=== PATIENT | male | born 1980 | race Caucasian/White ===

== ENCOUNTER 2021-03-28 07:38 | Outpatient (CLI) | payer OTHER, SELFPAY ==
--- NOTE | 2021-04-03 10:52 | WPDHOMESLEEP ---
Sleep Study - Home Unattended Date of Study: 03/28/21 <Peggy Leiva DO - Last Filed: 04/03/21 11:15> Ordering Provider: Clark Thomas MD <Peggy Leiva DO - Last Filed: 04/03/21 11:15> Interpreting Provider: Peggy Leiva DO <Peggy Leiva DO - Last Filed: 04/03/21 11:15> Home Sleep Study Type: Apnea Link Air <Peggy Leiva DO - Last Filed: 04/03/21 11:15> Height: 1.85 m <Peggy Leiva DO - Last Filed: 04/03/21 11:15> Weight: 120.202 kg <Peggy Leiva DO - Last Filed: 04/03/21 11:15> Body Mass Index: 34.9 <Peggy Leiva DO - Last Filed: 04/03/21 11:15> Neck Circumference (inches): 18 <Peggy Leiva DO - Last Filed: 04/03/21 11:15> [place]: 6 <Peggy Leiva DO - Last Filed: 04/03/21 11:15> Reason for Sleep Study Unrefreshing sleep, morning headaches <Peggy Leiva DO - Last Filed: 04/03/21 11:15> Sleep History The patient is a 40-year-old male with migraines, anxiety, and protein losing nephropathy that had a home sleep test ordered by his primary care physician due to morning headaches and unrefreshing sleep. The patient denies awakening from sleep short of breath. He denies awakening at night with heartburn, belching or cough. He frequently snores but never loud enough that others complain. He constantly has trouble sleeping when he has a cold. He denies waking up gasping for air throughout the night. He denies having breathing problems at night observed by others. He rarely sweats excessively at night. He rarely notices heart palpitations or irregular heartbeats during the night. He occasionally falls asleep during the day but never while driving. He denies sleep paralysis, cataplexy and hypnagogic / hypnopompic hallucinations. He denies having trouble at work due to sleepiness. He denies having nightmares. He frequently has thoughts racing through his mind. He denies feeling sad or depressed but frequently has anxiety. He occasionally has muscular tension. He frequently notices parts of his body jerk. He occasionally kicks during the night. He occasionally has crawling and aching feelings in his legs as well as leg pain during the night. He denies grinding his teeth during sleep and awakening with morning jaw pain. He is occasionally bothered by pain during the day and awakened by pain during the night. He occasionally wakes up feeling stiff in the morning with sore and achy muscles. He currently goes to bed between 10 and 11:00 p.m. on weekdays and between 11:00 p.m. admin night on the weekends. It takes him between 10 and 15 minutes to fall asleep. He wakes up 2-3 times per night. When he awakens, he will drink water. He can fall back asleep within 15 to 20 minutes. He awakens at 6:00 a.m. on weekdays and 7:00 a.m. on weekends. He typically gets 5-6 hours of sleep per night. He will stay in bed for 5 minutes after awakening in the morning. He is currently living with his , 4 kids and [id number]. He does consume caffeinated beverages within 2 hours of bedtime. He does not engage in physical exercise before bedtime. He does not read or watch television before falling asleep. He does not take naps during the afternoon or the evening. He drinks 2 caffeinated beverages per day. He denies tobacco, alcohol and recreational drug use. <Peggy Leiva DO - Last Filed: 04/03/21 11:15> [facility] Past Medical History Medical History: Medical History Abnormal fasting glucose (10/13/20) glucose 135 and hemoglobin A1c 6.0 on 10/13/2020 Acute non-recurrent maxillary sinusitis BMI 35.0-35.9,adult Cellulitis Exposure to COVID-19 virus Hypersomnia (~01/02/21) Mixed hyperlipidemia (10/13/20) total cholesterol 211, HDL 49, triglycerides 159 and LDL 133 on 10/13/2020 Polyp of colon Protein-losing nephropathy Nahid
[2021-04-03 11:03] VITALS: BMI 34.9
== END 2021-03-29 13:31 | disposition home or self-care (01) ==
LOC: ANHCSM 07:39
PROVIDERS: PCP Family Medicine; Visit Provider Family Medicine
DX: G47.10 Hypersomnia, unspecified (principal); G47.8 Other sleep disorders; G47.9 Sleep disorder, unspecified
CPT/HCPCS: 95806

== ENCOUNTER 2024-01-07 07:36 | Emergency (ER) | payer BC, SELFPAY ==
[2024-01-07] VITALS (13 sets, daily range): BP systolic 136–158; BP diastolic 87–113; PULSE 64–84; RESP 16–20; TEMP 36.6–37.2; O2SAT 95–100
--- NOTE | 2024-01-07 07:43 | ECG_ITS ---
Test Date: 2024-01-07 07:46:17 Measurements Intervals [place] Rate: 75 P: 10 OK: 140 QRS: -20 QRSD: 84 T: 18 QT: 342 QTc: 384 Interpretive Statements SINUS RHYTHM DELAYED PRECORDIAL R/S TRANSITION BORDERLINE ECG No previous ECG available for comparison Electronically Signed On 01-07-2024 09:24:31 CDT by Jasen Jack D.O.
--- NOTE | 2024-01-07 09:51 | ED.ANXIETY ---
HPI - Anxiety General Chief Complaint: Anxiety Stated Complaint: chest tightness, anxiety Time Seen by Provider: 01/07/24 09:40 Source: patient Mode of arrival: ambulatory Limitations: no limitations History of Present Illness HPI narrative: This is a 43-year-old male who presents to the ED with chief complaint of chest tightness, tingling of the bilateral hands onset around 4:00 a.m. this morning. Reports he just feels very off. states that his hands and legs still feel off but the chest tightness has overall resolved. He does report history of anxiety and not any medications. 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 Reports that he is undergoing upset for chronic EBV and chronic Lyme do with his all natural doctor. denies fevers, chills, headache, neck pain, shortness of breath, N/V/D. Related Data Home Medications Medication Instructions Recorded Confirmed aspirin 81 mg tablet,delayed 81 mg PO DAILY 12/04/21 10/16/23 release (Adult Low Dose Aspirin) cholecalciferol (vitamin D3) PO 06/04/23 10/16/23 mecobalamin (vitamin B12) IM .[id number] 06/04/23 10/16/23 omega-3 fatty acids [Fish Oil] PO 06/04/23 10/16/23 Allergies Allergy/AdvReac Type Severity Reaction Status Date / Time No Known Allergies Allergy Mild Verified 01/07/24 09:41 Review of Systems Review of Systems: All systems as dictated in HPI [facility] Past Medical History Medical History (Reviewed 10/16/23 @ 13:01 by Colten Silva [facility]) Abnormal fasting glucose (10/13/20) glucose 135 and hemoglobin A1c 6.0 on 10/13/2020. Glucose 137 with hemoglobin A1c 6.8 on 12/01/2021. Acute bronchitis Acute non-recurrent maxillary sinusitis Binocular vision disorder with diplopia (~12/01/21) intermittent binocular diplopia starting 12/01/2021 Blurred vision (12/01/21) BMI 35.0-35.9,adult Body mass index [BMI] 33.0-33.9, adult Brain fog Brain stem stroke syndrome (~12/01/21) a possible MRI negative brainstem stroke evaluated at [facility] 12/01/2021 Cellulitis Chronic neck pain COVID-19 (~02/2023) Encounter for prostate cancer screening Exposure to COVID-19 virus Hemorrhoids Hypersomnia (~01/02/21) Home sleep study 03/28/2021 with AHI of 3.4 with evidence of restless leg syndrome. Consider in-lab sleep study Infected dental caries left upper jaw Influenza-like illness (~06/20/23) Migraine without aura and responsive to treatment CT of the brain on 12/01/2021 was normal. MRI of the brain was normal 12/03/2021. the patient is having brainstem aura symptoms without migraine. Migraine without aura and without status migrainosus, not intractable Neurologist believes that the intermittent diplopia represents a brainstem aura. Mixed hyperlipidemia (10/13/20) total cholesterol 211, HDL 49, triglycerides 159 and LDL 133 on 10/13/2020. Total cholesterol 188, triglycerides 138, HDL 42 and LDL 118 on 12/01/2021. Obesity (BMI 30.0-34.9) Paresthesias Polyp of colon Protein-losing nephropathy Renal stone (10/13/20) Seasonal allergic rhinitis Urinary tract infection Vitamin B12 deficiency anemia B12 slightly low at 341 on 10/13/2020 Vitamin D deficiency, unspecified (10/13/20) vitamin-D low at 16 on 10/13/2020 Wellness examination Family History Family History (Reviewed 10/16/23 @ 13:01 by Colten Silva [facility]) Father Diabetes mellitus Patient's father is in good health Mother Diabetes mellitus Patient's mother is in good health Grandparent Family history of cardiovascular disease Social History Social History (Reviewed 10/16/23 @ 13:01 by Colten Silva [facility]) Smoking status: Never smoker Alcohol intake: never Substance use: never Substance use type: does not use Lack of Transportation: No Lack of Food: Never True Current Housing: I Have Housing Concerned About Future Housing: No Difficulty Paying Gas/Electric Bills: No Difficulty Pa
[2024-01-07 10:18] LABS: Basophils Percent Auto 0.3 % (0.2-1.2); Eosinophils Percent Auto 0.4 % (0-4.4); Hematocrit 49.6 % (42.0-52.0); Hemoglobin 16.5 g/dL (14.0-18.0); Immature Granulocyte Absolute 0.04 K/mm3 (0.00-0.031); Immature Granulocyte Percent A 0.5 % (0-0.5); Lymphocytes Absolute Auto 1.01 K/mm3 (0.9-3.2); Lymphocytes Percent Auto 12.9 % (18.3-44.2); Mean Corpuscular HGB Conc 33.3 g/dl (32-36); Mean Corpuscular Hemoglobin 30.1 pg (26-34); Mean Corpuscular Volume 90.5 fl (80-100); Mean Platelet Volume 10.5 fl (7.4-10.4); Monocytes Absolute Auto 0.3 K/mm3 (0.1-0.6); Monocytes Percent Auto 3.9 % (2.6-8.5); Neutrophils Absolute Auto 6.4 K/mm3 (1.3-6.7); Platelet Count Result 180 k/mm3 (150-375); Red Blood Count 5.48 M/mm3 (4.6-6.20); Red Cell Distribution Width 13.2 % (11.5-14.5); White Blood Count 7.9 K/mm3 (4.5-10.0)
[2024-01-07 10:28] LABS: Anion Gap 11 mmol/L (4-12); Blood Urea Nitrogen 15 mg/dL (9-20); Calcium 8.8 mg/dL (8.4-10.2); Carbon Dioxide 24 mmol/L (22-30); Chloride 102 mmol/L (98-107); Estimated CRCL calculation 140 ml/min; Estimated Glomerular Filt Rate > 60; Glucose 159 mg/dL (65-110); Partial Thromboplastin Time 34.5 Seconds (22.3-36.8); Potassium 4.3 mmol/L (3.4-5.0); Prothrombin Time 13.7 Seconds (11.1-14.7); Sodium 137 mmol/L (137-145)
[2024-01-07 10:40] LABS: Troponin I < 0.012 ng/mL (0.000-0.034)
[2024-01-07 11:06] LABS: D Dimer < 0.27 ug/mL (<0.48)
== END 2024-01-07 11:20 | disposition home or self-care (01) ==
LOC: ANHED 10:35
PROVIDERS: Emergency Provider Physician Assistant; PCP Family Medicine
DX: F41.9 Anxiety disorder, unspecified (principal); E78.2 Mixed hyperlipidemia; E55.9 Vitamin D deficiency, unspecified; D51.9 Vitamin B12 deficiency anemia, unspecified; Z86.16 Personal history of COVID-19; Z87.442 Personal history of urinary calculi; Z87.440 Personal history of urinary (tract) infections; Z79.82 Long term (current) use of aspirin; Z79.899 Other long term (current) drug therapy; R94.31 Abnormal electrocardiogram [ECG] [EKG]
CPT/HCPCS: 36415; 80048; 84484; 85025; 85380; 85610; 85730; 93005; 99284

== ENCOUNTER 2024-06-17 15:25 | Observation (INO) | payer BC, SELFPAY ==
--- NOTE | ~2024-06-17 | XR_ITS ---
EXAMINATION: XR chest 2V DATE: 06/17/2024 15:51 INDICATION: Right-sided chest pain TECHNIQUE: AP and lateral views of the chest were obtained. COMPARISON: Chest radiograph dated 04/24/2009 FINDINGS: The lungs are clear with no focal airspace opacities, pulmonary edema, pleural effusion or pneumothor ax. The cardiomediastinal silhouette is normal. Visualized bones and soft tissues are unremarkable. IMPRESSION: 1. No acute cardiopulmonary disease. Reviewed, dictated and finalized at location B. [employer]
--- NOTE | ~2024-06-17 | CT_ITS ---
EXAMINATION: CT abdomen pelvis w con DATE: 06/17/2024 20:13 INDICATION: flank pain, abd pain, hx stones TECHNIQUE: Computed tomography (CT) of the abdomen and pelvis was performed with 100 mL Omnipaque-350 intravenous contrast. Automated exposure control and iterative reconstruction technique were employe d. The dose-length product was 1087.00 mGy-cm. COMPARISON: CT abdomen and CT pelvis 02/27/2004. FINDINGS: Lower thorax: Coronary artery calcifications. Dependent atelectasis/scar Liver: Normal. Biliary/Gallbladder: Gallbladder is absent. No bile duct dilation. Pancreas: No mass or duct dilation. Spleen: Normal. Adrenals:No mass. Kidneys: No suspicious mass. Subcentimeter hypodensities in the left kidney, too small to characteriz e but most likely represent cysts. Delayed right nephrogram. Mild right hydronephrosis. GI tract: No small or large bowel dilation. Normal appendix. Diverticulosis without diverticulitis. Mesentery/Peritoneum: No ascites, mass, or free air. Retroperitoneum: No mass. Pelvis: 3 mm calcification in the distal right ureter. Normal urinary bladder and prostate. Soft Tissues: Small uncomplicated appearing fat-containing umbilical and bilateral inguinal hernias. Bones: No acute osseous finding. IMPRESSION: 3 mm distal right ureteral stone causing mild obstructive uropathy. Reviewed, dictated and finalized at location K. [facility] [employer]
--- NOTE | 2024-06-17 15:29 | ECG_ITS ---
Test Date: 2024-06-17 15:34:22 Measurements Intervals [place] Rate: 77 P: 8 [place]: 164 QRS: -12 QRSD: 85 T: 0 QT: 362 QTc: 410 Interpretive Statements SINUS RHYTHM DELAYED PRECORDIAL R/S TRANSITION BORDERLINE T WAVE ABNORMALITY- INFERIOR LEADS BASELINE ARTIFACT- I, III, AVR, AVL, AVF BORDERLINE ECG Compared to ECG 01/07/2024 07:46:17 No significant changes Electronically Signed On 06-17-2024 15:43:01 SNAG GRINDER by Jasen Jack D.O.
[2024-06-17 15:32] VITALS: BP 149/103; PULSE 78; RESP 24; TEMP 36.6; O2SAT 100
[2024-06-17 15:47] LABS: Basophils Percent Auto 0.4 % (0.2-1.2); Eosinophils Absolute Auto 0.1 K/mm3 (0-0.3); Eosinophils Percent Auto 1.4 % (0-4.4); Hematocrit 48.1 % (42.0-52.0); Hemoglobin 15.9 g/dL (14.0-18.0); Immature Granulocyte Absolute 0.02 K/mm3 (0.00-0.031); Immature Granulocyte Percent A 0.3 % (0-0.5); Lymphocytes Absolute Auto 2.74 K/mm3 (0.9-3.2); Lymphocytes Percent Auto 37.5 % (18.3-44.2); Mean Corpuscular HGB Conc 33.1 g/dl (32-36); Mean Corpuscular Hemoglobin 29.2 pg (26-34); Mean Corpuscular Volume 88.4 fl (80-100); Monocytes Absolute Auto 0.6 K/mm3 (0.1-0.6); Monocytes Percent Auto 8.1 % (2.6-8.5); Neutrophils Absolute Auto 3.8 K/mm3 (1.3-6.7); Neutrophils Percent Auto 52.3 % (45.5-73.1); Platelet Count Result 188 k/mm3 (150-375); Red Blood Count 5.44 M/mm3 (4.6-6.20); Red Cell Distribution Width 12.9 % (11.5-14.5); White Blood Count 7.3 K/mm3 (4.5-10.0)
--- NOTE | 2024-06-17 15:54 | ED.SOB ---
HPI - SOB/Dyspnea General Chief Complaint: Shortness of Breath/Dyspnea <Lucrecia Gomez PA-C - Last Filed: 06/18/24 10:58> Stated Complaint: shortness of breath stabbing pain in the R side cp <Lucrecia Gomez PA-C - Last Filed: 06/18/24 10:58> Time Seen by Provider: 06/17/24 15:54 <Lucrecia Gomez PA-C - Last Filed: 06/18/24 10:58> Focused HPI: This is a 43 year old male that presents to the ER for right sided chest/abdominal pain. Worse with deep breathing. Ongoing over the last 45 minutes. Denies fever, vomiting, diarrhea, dysuria. GENERAL: Uncomfortable, well-nourished HEAD: Normocephalic, atraumatic. CHEST: Clear to auscultation. ?No respiratory distress. HEART: Regular rate and rhythm.? NEURO: ?Alert and oriented x3. Patient screened in triage and initial orders placed.? ?Additional care and disposition to be based upon?diagnostic testing and treatment. <Lucrecia Gomez PA-C - Last Filed: 06/18/24 10:58> History of Present Illness HPI Narrative: 43-year-old male with a past medical history including hypertension, hyperlipidemia, diabetes, previous kidney stones. Patient previously had retrieval procedure to remove his kidney stones and has had kidney injuries in the past. Today presents with sudden-onset right-sided flank pain radiating towards his right abdomen. Causing him some shortness of breath and right-sided chest discomfort. Denies any fever chills. No urinary complaints such as dysuria, hematuria, inability urinate. Feels intense and comes in waves. Associated nausea without vomiting. No diarrhea constipation. No recent surgeries. Was otherwise in his normal state of health. Took Excedrin and aspirin at home which action made the pain worse. No history of peptic ulcer disease but tells me he does take large amounts of NSAIDs for his migraine headaches. <Solis Oviedo MD - Last Filed: 06/17/24 23:08> Related Data Home Medications: Home Medications ?Medication ?Instructions ?Recorded ?Confirmed ?Last Taken ?Type cholecalciferol (vitamin D3) 1,000 unit PO DAILY 0206/18/24 06/17/24 08:00 History omega-3 fatty acids 1 cap PO DAILY 06/04/23 06/18/24 06/17/24 08:00 History rizatriptan 10 mg tablet See Rx Instructions PO .COMPLEX 01/16/24 06/18/24 Unknown History atogepant 60 mg tablet (Qulipta) 60 mg PO DAILY 04/01/24 06/18/24 06/17/24 21:00 History azelastine 137 mcg (0.1 %) nasal 1 spray intranasal Q12H PRN 04/01/24 06/18/24 Unknown History spray allergy buspirone 15 mg tablet 15 mg PO BID 06/18/24 06/18/24 06/17/24 08:00 History meloxicam 15 mg tablet 15 mg PO DAILY PRN back pain 06/18/24 06/18/24 Unknown History sertraline 100 mg tablet 100 mg PO DAILY 06/18/24 06/18/24 06/17/24 08:00 History <Lucrecia Gomez PA-C - Last Filed: 06/18/24 10:58> Allergies/Adverse Reactions: Allergies Allergy/AdvReac Type Severity Reaction Status Date / Time No Known Allergies Allergy Mild Verified 06/17/24 19:34 <Lucrecia Gomez PA-C - Last Filed: 06/18/24 10:58> Review of Systems Review of Systems: as above <Solis Oviedo MD - Last Filed: 06/17/24 23:08> All systems reviewed & are unremarkable except as noted in HPI and below <Solis Oviedo MD - Last Filed: 06/17/24 23:08> [facility] Past Medical History Medical History: Medical History Abnormal fasting glucose (10/13/20) glucose 135 and hemoglobin A1c 6.0 on 10/13/2020. Glucose 137 with hemoglobin A1c 6.8 on 12/01/2021. Fasting glucose 117 with hemoglobin A1c 6.3 and GFR 107 on 04/01/2024. Controlled diabetes mellitus without complication, without long-term current use of insulin (~12/01/21) glucose 135 and hemoglobin A1c 6.0 on 10/13/2020. Glucose 137 with hemoglobin A1c 6.8 on 12/01/2021. Fasting glucose 117 with hemoglobin A1c 6.3 and GFR 107 on 04/01/2024. Chronic depression Brain fog Chronic neck pain Influenza-like illness (~06/20/23) COVID-19 (~02/2023) Acute bronchitis Migraine without aura and without status migrainosus, not intractable Neurologist believes that the intermittent diplopia represents a brainstem aura. Normal MRI, MRA, MRV of the brain on 03/04/2024. Brain stem stroke syndrome (~12/01/21) a possible MRI negative brainstem stroke evaluated at [facility] 12/01/2021 Binocular vision disorder with diplopia (~12/01/21) intermittent binocular diplopia starting 12/01/2021 Hemorrhoids Blurred vision (12/01/21) Infected dental caries left upper jaw Seasonal allergic rhinitis Body mass index [BMI] 33.0-33.9, adult Obesity (BMI 30.0-34.9) Paresthesias Encounter for prostate cancer screening Wellness examination Mixed hyperlipidemia (10/13/20) total cholesterol 211, HDL 49, triglycerides 159 and LDL 133 on 10/13/2020. Total cholesterol 188, triglycerides 138, HDL 42 and LDL 118 on 12/01/2021. Cholesterol 164, HDL 41, triglycerides 111, LDL 102 on 04/01/2024. Vitamin D deficiency, unspecified (10/13/20) vitamin-D low at 16 on 10/13/2020. Level normal at 37 on 04/01/2024. BMI 35.0-35.9,adult Hypersomnia (~01/02/21) Home sleep study 03/28/2021 with AHI of 3.4 with evidence of restless leg syndrome. Consider in-lab sleep study Urinary tract infection Cellulitis Exposure to COVID-19 virus Acute non-recurrent maxillary sinusitis Renal stone (10/13/20) Vitamin B12 deficiency anemia B12 slightly low at 341 on 10/13/2020. Level normal at 661 with hemoglobin 16.3 on 04/01/2024. Polyp of colon Protein-losing nephropathy 2+ protein on urinalysis 04/01/2024. Migraine without aura and responsive to treatment CT of the brain on 12/01/2021 was normal. MRI of the brain was normal 12/03/2021. the patient is having brainstem aura symptoms without migraine. <Lucrecia Gomez PA-C - Last Filed: 06/18/24 10:58> Family History Family History: Family History Father Diabetes mellitus Patient's father is in good health Mother Diabetes mellitus Patient's mother is in good health Grandparent Family history of cardiovascular disease <Lucrecia Gomez PA-C - Last Filed: 06/18/24 10:58> Social History Social History: Social History Smoking status: Never smoker Second hand tobacco smoke exposure: No Alcohol intake: never Substance use: never Substance use type: does not use Do You Feel Safe in your Home?: Yes Lack of Transportation: No Lack of Food: Never True Current Housing: I Have Housing Concerned About Future Housing: No Difficulty Paying Gas/Electric Bills: No Difficulty Paying for Meds: No Currently Unemployed: No Education: Associate Degree Difficulty w/ Childcare or Family Care: No Spiritual care concerns: No <Lucrecia Gomez PA-C - Last Filed: 06/18/24 10:58> Exam Narrative: GENERAL: Uncomfortable appearing, tachypneic but not in any acute distress, answering all my questions appropriately. HEAD: [Normocephalic, atraumatic.] EYES: [PERRLA and EOMI.] ENT: Nares clear, no rhinorrhea or epistaxis. Mucous membranes moist. NECK: Supple. CHEST: [Clear to auscultation. No respiratory distress.] HEART: [Regular rate and rhythm]. No murmur heard. [Normal peripheral pulses.] ABDOMEN: [Soft, nondistended], tender in the right flank without any overlying skin changes, no guarding. No signs of peritonitis. EXTREMITIES: Normal range of motion. [No edema.] SKIN: Warm, dry, no rash. NEURO: [No focal deficits]. Alert and oriented [x3.] PSYCH: [Normal mood and affect.] <Solis Oviedo MD - Last Filed: 06/17/24 23:08> Course Vital Signs Vital signs: Vital Signs Temperature 97.8 F 06/17/24 15:32 Pulse Rate 78 06/17/24 15:32 Respiratory Rate 24 H 06/17/24 15:32 Blood Pressure 149/103 H 06/17/24 15:32 Pulse Oximetry 100 06/17/24 15:32 Temperature 97.0 F L 06/18/24 08:00 Pulse Rate 71 06/18/24 08:00 Respiratory Rate 16 06/18/24 08:00 Blood Pressure 130/67 06/18/24 08:00 Pulse Oximetry 98 06/18/24 08:00 Oxygen Delivery Room Air 06/18/24 03:03 <Lucrecia Gomez PA-C - Last Filed: 06/18/24 10:58> Vital Signs Temperature 97.8 F 06/17/24 15:32 Pulse Rate 78 06/17/24 15:32 Respiratory Rate 24 H 06/17/24 15:32 Blood Pressure 149/103 H 06/17/24 15:32 Pulse Oximetry 100 06/17/24 15:32 Temperature 97.0 F L 06/18/24 08:00 Pulse Rate 71 06/18/24 08:00 Respiratory Rate 16 06/18/24 08:00 Blood Pressure 130/67 06/18/24 08:00 Pulse Oximetry 98 06/18/24 08:00 Oxygen Delivery Room Air 06/18/24 03:03 <Solis Oviedo MD - Last Filed: 06/17/24 23:08> MDM - SOB/Dyspnea MDM Narrative Medical decision making narrative: 43-year-old male with a history kidney stones, hypertension, hyperlipidemia and diabetes presenting to the ER for right flank pain radiating towards his abdomen. Feels dissimilar from his previous kidney stone pain. Pain comes in waves, localized to his right flank that radiates towards his abdomen. No injury or trauma. No overlying skin changes. He is tender in that area. Tachypneic but not tachycardic, slightly hypertensive no fever, hypoxia. Considerations presently are for kidney stone, obstructing kidney stone, pyelonephritis, cholecystitis, gallbladder disease, pancreatitis or appendicitis less likely. Low suspicion ACS or thromboembolic event such as a PE. Does meet low Wells criteria for this. Workup ordered including serial troponin, EKG, chest x-ray, CBC, CMP, lipase, viral swabs, he was treated with fluids, Zofran Dilaudid and a CT scan of the abdomen and pelvis with IV contrast was ordered for further delineation. Patient was re-evaluated after medications. Workup shows no leukocytosis or anemia. Normal platelet count. Urinalysis without any signs of infection. Normal kidney function, normal electrolytes, normal glucose and LFTs. Negative troponin. Negative repeat troponin. Negative lipase. Chest x-ray of the acute cardiopulmonary disease. CT scan shows distal right ureter stone causing mild right obstructive uropathy. Patient was re-evaluated initially had some improvement in pain but had a recurrence and worsening pain with more nausea. He is given a combination medications at this time including Toradol, fentanyl, Zofran and Flomax. Will re-evaluate to see if he has any improvement otherwise will have to admit him for pain control and urology to evaluate. Patient was re-evaluated multiple times and did have some minor improvement in his pain. Patient felt has an about going home and would feel comfortable with admission. Discussed the case with the urologist construction equipment mechanic helper Dr. Doyle and patient was made NPO for potential intervention in the morning for his kidney stone. Spoke to the hospitalist who accepted the patient to a medical-surgical bed at this time. P.r.n. medications were ordered, he was made NPO at midnight, admission orders placed. Patient and family updated on plan of care and comfortable with admission. <Solis Oviedo MD - Last Filed: 06/17/24 23:08> Medical Records Attestation: I reviewed the patient's medical records. <Solis Oviedo MD - Last Filed: 06/17/24 23:08> Lab Data Attestation: I reviewed the patient's lab results. <Solis Oviedo MD - Last Filed: 06/17/24 23:08> Result diagrams: 06/18/24 06:16 06/18/24 06:16 <Lucrecia Gomez PA-C - Last Filed: 06/18/24 10:58> Labs: Lab Results 06/17/24 06/17/24 06/17/24 Range/Units 15:39 18:36 18:42 WBC 7.3 (4.5-10.0) K/mm3 RBC 5.44 (4.6-6.20) M/mm3 Hgb 15.9 (14.0-18.0) g/dL Hct 48.1 (42.0-52.0) % MCV 88.4 (80-100) fl MCH 29.2 (26-34) pg MCHC 33.1 (32-36) g/dl RDW 12.9 (11.5-14.5) % Plt Count 188 (150-375) k/mm3 MPV 10.0 (7.4-10.4) fl Immature Gran % (Auto) 0.3 (0-0.5) % Neut % (Auto) 52.3 (45.5-73.1) % Lymph % (Auto) 37.5 (18.3-44.2) % [place] % (Auto) 8.1 (2.6-8.5) % Eos % (Auto) 1.4 (0-4.4) % Baso % (Auto) 0.4 (0.2-1.2) % Lymph # (Auto) 2.74 (0.9-3.2) K/mm3 [place] # (Auto) 0.6 (0.1-0.6) K/mm3 Eos # (Auto) 0.1 (0-0.3) K/mm3 Baso # (Auto) 0.0 (0.0-0.1) K/mm3 Abs Immat Gran (auto) 0.02 (0.00-0.031) K/mm3 Absolute Neuts (auto) 3.8 (1.3-6.7) K/mm3 Absolute Nucleated RBC 0.000 (0.0-0.012) K/mm3 Nucleated RBC % 0.0 (0.0-0.2) % PT 12.6 (11.1-14.7) Seconds INR 0.9 APTT 36.6 (22.3-36.8) Seconds Sodium 140 (137-145) mmol/L Potassium 3.5 (3.4-5.0) mmol/L Chloride 105 (98-107) mmol/L Carbon Dioxide 22 (22-30) mmol/L Anion Gap 13 H (4-12) mmol/L BUN 8 L D (9-20) mg/dL Creatinine 0.91 (0.7-1.3) mg/dL Estim Creat Clear Calc 123 ml/min Estimated GFR > 60 (59 - ) Glucose 118 H (65-110) mg/dL Calcium 9.3 (8.4-10.2) mg/dL Total Bilirubin 1.2 (0.2-1.3) mg/dL AST 25 (17-59) U/L ALT 27 (6-50) U/L Alkaline Phosphatase 54 (38-126) U/L Troponin I < 0.012 < 0.012 (0.000-0.034) ng/mL Total Protein 7.0 (6.3-8.2) g/dL Albumin 4.2 (3.5-5.1) g/dL Lipase 83 (23-300) U/L Urine Color Yellow (Yellow) Urine Appearance Clear (Clear) Urine pH 8.0 (5.0-9.0) Ur Specific [place] 1.025 (1.001-1.035) Urine Protein 2+ H (Negative) mg/dL Urine Glucose (UA) Negative (Negative) mg/dL Urine Ketones 1+ H (Negative) mg/dL Ur Blood (Man) Negative (Negative) Urine Nitrate Negative (Negative) Urine Bilirubin Negative (Negative) Urine Urobilinogen 1.0 (<2.0) mg/dL Leukocyte Esterase Rfl Negative (Negative) VIGNESH/UL Urine RBC 0-2 (0-2) /hpf Urine WBC 0-5 (0-3) /hpf Ur Squamous Epith Cells None seen (Few) /hpf Urine Bacteria None seen /hpf Urine Casts 0-2 Influenza A (RT-PCR) (Negative) Influenza B (RT-PCR) (Negative) RSV (RT-PCR) (Negative) SARS-CoV-2 RNA (RT-PCR) (Negative) 06/17/24 Range/Units 19:13 WBC (4.5-10.0) K/mm3 RBC (4.6-6.20) M/mm3 Hgb (14.0-18.0) g/dL Hct (42.0-52.0) % MCV (80-100) fl MCH (26-34) pg MCHC (32-36) g/dl RDW (11.5-14.5) % Plt Count (150-375) k/mm3 MPV (7.4-10.4) fl Immature Gran % (Auto) (0-0.5) % Neut % (Auto) (45.5-73.1) % Lymph % (Auto) (18.3-44.2) % [place] % (Auto) (2.6-8.5) % Eos % (Auto) (0-4.4) % Baso % (Auto) (0.2-1.2) % Lymph # (Auto) (0.9-3.2) K/mm3 [place] # (Auto) (0.1-0.6) K/mm3 Eos # (Auto) (0-0.3) K/mm3 Baso # (Auto) (0.0-0.1) K/mm3 Abs Immat Gran (auto) (0.00-0.031) K/mm3 Absolute Neuts (auto) (1.3-6.7) K/mm3 Absolute Nucleated RBC (0.0-0.012) K/mm3 Nucleated RBC % (0.0-0.2) % PT (11.1-14.7) Seconds INR APTT (22.3-36.8) Seconds Sodium (137-145) mmol/L Potassium (3.4-5.0) mmol/L Chloride (98-107) mmol/L Carbon Dioxide (22-30) mmol/L Anion Gap (4-12) mmol/L BUN (9-20) mg/dL Creatinine (0.7-1.3) mg/dL Estim Creat Clear Calc ml/min Estimated GFR (59 - ) Glucose (65-110) mg/dL Calcium (8.4-10.2) mg/dL Total Bilirubin (0.2-1.3) mg/dL AST (17-59) U/L ALT (6-50) U/L Alkaline Phosphatase (38-126) U/L Troponin I (0.000-0.034) ng/mL Total Protein (6.3-8.2) g/dL Albumin (3.5-5.1) g/dL Lipase (23-300) U/L Urine Color (Yellow) Urine Appearance (Clear) Urine pH (5.0-9.0) Ur Specific [place] (1.001-1.035) Urine Protein (Negative) mg/dL Urine Glucose (UA) (Negative) mg/dL Urine Ketones (Negative) mg/dL Ur Blood (Man) (Negative) Urine Nitrate (Negative) Urine Bilirubin (Negative) Urine Urobilinogen (<2.0) mg/dL Leukocyte Esterase Rfl (Negative) VIGNESH/UL Urine RBC (0-2) /hpf Urine WBC (0-3) /hpf Ur Squamous Epith Cells (Few) /hpf Urine Bacteria /hpf Urine Casts Influenza A (RT-PCR) Negative (Negative) Influenza B (RT-PCR) Negative (Negative) RSV (RT-PCR) Negative (Negative) SARS-CoV-2 RNA (RT-PCR) Negative (Negative) <Lucrecia Gomez PA-C - Last Filed: 06/18/24 10:58> Lab Results 06/17/24 06/17/24 06/17/24 Range/Units 15:39 18:36 18:42 WBC 7.3 (4.5-10.0) K/mm3 RBC 5.44 (4.6-6.20) M/mm3 Hgb 15.9 (14.0-18.0) g/dL Hct 48.1 (42.0-52.0) % MCV 88.4 (80-100) fl MCH 29.2 (26-34) pg MCHC 33.1 (32-36) g/dl RDW 12.9 (11.5-14.5) % Plt Count 188 (150-375) k/mm3 MPV 10.0 (7.4-10.4) fl Immature Gran % (Auto) 0.3 (0-0.5) % Neut % (Auto) 52.3 (45.5-73.1) % Lymph % (Auto) 37.5 (18.3-44.2) % [place] % (Auto) 8.1 (2.6-8.5) % Eos % (Auto) 1.4 (0-4.4) % Baso % (Auto) 0.4 (0.2-1.2) % Lymph # (Auto) 2.74 (0.9-3.2) K/mm3 [place] # (Auto) 0.6 (0.1-0.6) K/mm3 Eos # (Auto) 0.1 (0-0.3) K/mm3 Baso # (Auto) 0.0 (0.0-0.1) K/mm3 Abs Immat Gran (auto) 0.02 (0.00-0.031) K/mm3 Absolute Neuts (auto) 3.8 (1.3-6.7) K/mm3 Absolute Nucleated RBC 0.000 (0.0-0.012) K/mm3 Nucleated RBC % 0.0 (0.0-0.2) % PT 12.6 (11.1-14.7) Seconds INR 0.9 APTT 36.6 (22.3-36.8) Seconds Sodium 140 (137-145) mmol/L Potassium 3.5 (3.4-5.0) mmol/L Chloride 105 (98-107) mmol/L Carbon Dioxide 22 (22-30) mmol/L Anion Gap 13 H (4-12) mmol/L BUN 8 L D (9-20) mg/dL Creatinine 0.91 (0.7-1.3) mg/dL Estim Creat Clear Calc 123 ml/min Estimated GFR > 60 (59 - ) Glucose 118 H (65-110) mg/dL Calcium 9.3 (8.4-10.2) mg/dL Total Bilirubin 1.2 (0.2-1.3) mg/dL AST 25 (17-59) U/L ALT 27 (6-50) U/L Alkaline Phosphatase 54 (38-126) U/L Troponin I < 0.012 < 0.012 (0.000-0.034) ng/mL Total Protein 7.0 (6.3-8.2) g/dL Albumin 4.2 (3.5-5.1) g/dL Lipase 83 (23-300) U/L Urine Color Yellow (Yellow) Urine Appearance Clear (Clear) Urine pH 8.0 (5.0-9.0) Ur Specific [place] 1.025 (1.001-1.035) Urine Protein 2+ H (Negative) mg/dL Urine Glucose (UA) Negative (Negative) mg/dL Urine Ketones 1+ H (Negative) mg/dL Ur Blood (Man) Negative (Negative) Urine Nitrate Negative (Negative) Urine Bilirubin Negative (Negative) Urine Urobilinogen 1.0 (<2.0) mg/dL Leukocyte Esterase Rfl Negative (Negative) VIGNESH/UL Urine RBC 0-2 (0-2) /hpf Urine WBC 0-5 (0-3) /hpf Ur Squamous Epith Cells None seen (Few) /hpf Urine Bacteria None seen /hpf Urine Casts 0-2 Influenza A (RT-PCR) (Negative) Influenza B (RT-PCR) (Negative) RSV (RT-PCR) (Negative) SARS-CoV-2 RNA (RT-PCR) (Negative) 06/17/24 Range/Units 19:13 WBC (4.5-10.0) K/mm3 RBC (4.6-6.20) M/mm3 Hgb (14.0-18.0) g/dL Hct (42.0-52.0) % MCV (80-100) fl MCH (26-34) pg MCHC (32-36) g/dl RDW (11.5-14.5) % Plt Count (150-375) k/mm3 MPV (7.4-10.4) fl Immature Gran % (Auto) (0-0.5) % Neut % (Auto) (45.5-73.1) % Lymph % (Auto) (18.3-44.2) % [place] % (Auto) (2.6-8.5) % Eos % (Auto) (0-4.4) % Baso % (Auto) (0.2-1.2) % Lymph # (Auto) (0.9-3.2) K/mm3 [place] # (Auto) (0.1-0.6) K/mm3 Eos # (Auto) (0-0.3) K/mm3 Baso # (Auto) (0.0-0.1) K/mm3 Abs Immat Gran (auto) (0.00-0.031) K/mm3 Absolute Neuts (auto) (1.3-6.7) K/mm3 Absolute Nucleated RBC (0.0-0.012) K/mm3 Nucleated RBC % (0.0-0.2) % PT (11.1-14.7) Seconds INR APTT (22.3-36.8) Seconds Sodium (137-145) mmol/L Potassium (3.4-5.0) mmol/L Chloride (98-107) mmol/L Carbon Dioxide (22-30) mmol/L Anion Gap (4-12) mmol/L BUN (9-20) mg/dL Creatinine (0.7-1.3) mg/dL Estim Creat Clear Calc ml/min Estimated GFR (59 - ) Glucose (65-110) mg/dL Calcium (8.4-10.2) mg/dL Total Bilirubin (0.2-1.3) mg/dL AST (17-59) U/L ALT (6-50) U/L Alkaline Phosphatase (38-126) U/L Troponin I (0.000-0.034) ng/mL Total Protein (6.3-8.2) g/dL Albumin (3.5-5.1) g/dL Lipase (23-300) U/L Urine Color (Yellow) Urine Appearance (Clear) Urine pH (5.0-9.0) Ur Specific [place] (1.001-1.035) Urine Protein (Negative) mg/dL Urine Glucose (UA) (Negative) mg/dL Urine Ketones (Negative) mg/dL Ur Blood (Man) (Negative) Urine Nitrate (Negative) Urine Bilirubin (Negative) Urine Urobilinogen (<2.0) mg/dL Leukocyte Esterase Rfl (Negative) VIGNESH/UL Urine RBC (0-2) /hpf Urine WBC (0-3) /hpf Ur Squamous Epith Cells (Few) /hpf Urine Bacteria /hpf Urine Casts Influenza A (RT-PCR) Negative (Negative) Influenza B (RT-PCR) Negative (Negative) RSV (RT-PCR) Negative (Negative) SARS-CoV-2 RNA (RT-PCR) Negative (Negative) <Solis Oviedo MD - Last Filed: 06/17/24 23:08> Imaging Data Attestation: I personally reviewed and interpreted this imaging study as follows: <Solis Oviedo MD - Last Filed: 06/17/24 23:08> My impression: Impressions Chest X-Ray 06/17/24 15:52 IMPRESSION: 1. No acute cardiopulmonary disease. Abdomen/Pelvis CT 06/17/24 20:13 IMPRESSION: 3 mm distal right ureteral stone causing mild obstructive uropathy. <Solis Oviedo MD - Last Filed: 06/17/24 23:08> Critical Care Time Critical Care Time Critical Care Time: No <Lucrecia Gomez PA-C - Last Filed: 06/18/24 10:58> Discharge Plan Discharge Clinical Impression: Right distal ureteral calculus, Hydronephrosis of right kidney, Intractable pain <Lucrecia Gomez PA-C - Last Filed: 06/18/24 10:58> Patient Disposition: Still a Patient <Lucrecia Gomez PA-C - Last Filed: 06/18/24 10:58> Condition: Stable <Lucrecia Gomez PA-C - Last Filed: 06/18/24 10:58> Time of Disposition: 23:08 <Lucrecia Gomez PA-C - Last Filed: 06/18/24 10:58> 23:08 <Solis Oviedo MD - Last Filed: 06/17/24 23:08>
[2024-06-17 15:57] LABS: INR 0.9; Prothrombin Time 12.6 Seconds (11.1-14.7)
[2024-06-17 15:58] LABS: Partial Thromboplastin Time 36.6 Seconds (22.3-36.8)
[2024-06-17 16:00] LABS: Alanine Aminotransferase 27 U/L (6-50); Albumin Level 4.2 g/dL (3.5-5.1); Alkaline Phosphatase 54 U/L (38-126); Anion Gap 13 mmol/L (4-12); Aspartate Amino Transferase 25 U/L (17-59); Bilirubin,Total 1.2 mg/dL (0.2-1.3); Blood Urea Nitrogen 8 mg/dL (9-20); Calcium 9.3 mg/dL (8.4-10.2); Carbon Dioxide 22 mmol/L (22-30); Chloride 105 mmol/L (98-107); Estimated CRCL calculation 123 ml/min; Estimated Glomerular Filt Rate > 60; Glucose 118 mg/dL (65-110); Lipase 83 U/L (23-300); Potassium 3.5 mmol/L (3.4-5.0); Sodium 140 mmol/L (137-145)
[2024-06-17 16:11] LABS: Troponin I < 0.012 ng/mL (0.000-0.034)
[2024-06-17] MEDS: ASPIRIN 81 MG CHEWABLE TABLET 324 MG PO (17:02)
--- OUTSIDE RECORDS SUMMARY | 2024-06-17 17:49 | XMS_ITS | Patient Health Summary ---
Author Organization [facility] Address [address] [place] [address] Care Team Providers Care Computational Chemist Name Role Phone Clark Thomas MD Primary Care Provider [phone] Note from [facility],non-owned Affiliates and Associated Physician Practices is amultiple site organization consisting of ambulatory clinics and hospital sitesin [place], [place], [place] and [place]. This disclosure is being madepursuant to the Care Everywhere program and may not contain all information available regarding this patient. Last updated 18.[facility] Allergies No known active allergies Medications * Be aware that medications may not be up to date on this document. Alwaysverify current medications with the patient. * ZOLMitriptan (ZOMIG) 2.5 MG tablet Take 2.5 mg by mouth once as needed for Migraine Reasons: Migraine Headache * BACLOFEN PO * AMITRIPTYLINE HCL PO * Pregabalin (LYRICA PO) * ZOLMitriptan (ZOMIG PO) * fluticasone propionate (FLONASE) 50 MCG/ACT nasal spray(Started 09/16/2016) [place] 1 [place] into each nostril 2 times daily 1 refill remaining * fexofenadine (KELLIE ALLERGY) 180 MG tablet(Started 09/16/2016) Take 1 Tab by mouth once daily Reasons: Hayfever 1 refill remaining Active Problems No known active problems Social History Tobacco Use Types Packs/Day Years Used Date Smoking Tobacco: Never Smokeless Tobacco: Never Alcohol Use Standard Drinks/Week Comments Not Currently 0 (1 standard drink = 0.6 oz pur e alcohol) Sex and Gender Information Value Date Recorded Sex Assigned at Not on file Gender Identity Not on file Sexual Orientation Not on file Last Filed Vital Signs Vital Sign Reading Time Taken Comments Blood Pressure 152/113 09/22/2020 10:38 PM CDT Pulse 83 09/23/2020 12:25 AM CDT Temperature 36.9 C (98.4 F) 09/22/2020 10:38 PM CDT Respiratory Rate 18 09/22/2020 10:38 PM CDT Oxygen Saturation 97% 09/22/2020 10:38 PM CDT Inhaled Oxygen Concentration - - Weight 117.9 kg (260 lb) 09/22/2020 10:38 PM CDT Height 185.4 cm (6' 1 ) 09/22/2020 10:38 PM CDT Body Mass Index 34.3 09/22/2020 10:38 PM CDT Procedures * CT HEAD WO CONTRAST(Performed 09/23/2020) Performed for Migraine without aura and without status migrainosus, not intractable Results * CT HEAD NON CONTRAST - intracranial hemorrhage (09/23/2020 12:09 AM CDT) Anatomical Region Laterality Modality Head Computed Tomogra phy 09/23/2020 8:49 AM CDT Impressions 09/23/2020 2:27 PM CDT IMPRESSION: 1. No acute intracranial hemorrhage, mass effect or midline shift. Dictated by Yeison Bashir MD (Rig Welder) I, Dr. BAM VASQUEZ have personally reviewed and interpreted this examination/study. This report was electronically signed by BAM VASQUEZ on 09/23/2020 2:27 PM . Narrative 09/23/2020 2:27 PM CDT EXAM: CT BRAIN WITHOUT CONTRAST CLINICAL INDICATION: G44.319: Acute post-traumatic headache, not intractable TECHNIQUE: Contiguous axial images through head were obtained without intravenous contrast administration. Brain and bone window images were obtained. COMPARISON: None FINDINGS: Brain parenchyma: Brain volume is normal for age. No large acute infarction, mass, hemorrhage or abnormal extra-axial fluid collection. Ventricles and the midline: Ventricles are normal without a midline shift or hydrocephalus. A cavum vergae is incidentally noted. Skull and soft tissues: No acute fracture, bony or soft tissue abnormality. Extracranial structures: Orbits are normal bilaterally. There is mild to moderate mucosal thickening in the anterior ethmoid sinuses. There is mild mucosal thickening bilateral maxillary sinuses. The remaining sinuses are patent. Visualized mastoids and tympanic cavities demonstrate no significant opacification. Procedure Note Bam Vasquez MD - 09/23/2020 EXAM: CT BRAIN WITHOUT CONTRAST CLINICAL INDICATION: G44.319: Acute post-traumatic headache, not intractable TECHNIQUE: Contiguous axial images through head were obtained without intravenous contrast administration. Brain and bone window images were obtained. COMPARISON: None FINDINGS: Brain parenchyma: Brain volume is normal for age. No large acute infarction, mass, hemorrhage or abnormal extra-axial fluid collection. Ventricles and the midline: Ventricles are normal without a midline shift or hydrocephalus. A cavum vergae is incidentally noted. Skull and soft tissues: No acute fracture, bony or soft tissue abnormality. Extracranial structures: Orbits are normal bilaterally. There is mild to moderate mucosal thickening in the anterior ethmoid sinuses. There is mild mucosal thickening bilateral maxillary sinuses.The remaining sinuses are patent. Visualized mastoids and tympanic cavities demonstrate no significant opacification. IMPRESSION: 1. No acute intracranial hemorrhage, mass effect or midline shift. Dictated by Yeison Bashir MD (Rig Welder) I, Dr. BAM VASQUEZ have personally reviewed and interpreted this examination/study. This report was electronically signed by BAM VASQUEZ on 09/23/2020 2:[address] Lucrecia Adame MD CT ORDERABLES Care Teams Computational Chemist Relationship Specialty Start Date End Date Clark Thomas MD PCP - General Family Medicine 12/14/15
--- OUTSIDE RECORDS SUMMARY | 2024-06-17 17:49 | XMS_ITS | CONTINUITY OF CARE DOCUMENT ---
Author Name jamiebrigidjustin thomas Address Unknown Organization [facility] Address [address] [place] [address] Phone [phone] Care Team Providers Care Shuttle Bus Driver Name Role Phone Robin LOPEZ, Faviola Evans Unavailable CASE LEAVITT MD Unavailable CASE LEAVITT MD Unavailable [phone] INSURANCE PROVIDERS Payer name Policy type / Coverage type [place] red libertarian [place] [employer] Ride insurance [employer] [id number]
--- OUTSIDE RECORDS SUMMARY | 2024-06-17 17:49 | XMS_ITS | Referral Summary ---
Author Organization [facility] Address [address] [place] [address] Care Team Providers Care Project Builder Name Role Phone Clark Thomas MD Primary Care Provider [phone] Source Comments [facility],non-owned Affiliates and Associated Physician Practices is amultiple site organization consisting of ambulatory clinics and hospital sitesin [place], [place], [place] and [place]. This disclosure is being madepursuant to the Care Everywhere program and may not contain all information available regarding this patient. Last updated 18.[facility] Allergies No known active allergies Medications * Be aware that medications may not be up to date on this document. Alwaysverify current medications with the patient. Medication Sig Dispensed Refills Start Date End Date Status ZOLMitriptan (ZOMIG) 2.5 MG tabletIndications:Steve myranda Take 2.5 mg by mouth once as needed for Migraine Reasons: Migraine Headache Active BACLOFEN PO Active AMITRIPTYLINE HCL PO Acti ve Pregabalin (LYRICA PO) Active ZOLMitriptan (ZOMIG PO) Active fluticasone propionate (FLONASE) 50 MCG/ACT nasal spray [place] 1 [place] into each nostril 2 times daily 1 Bottle 1 09/16/2016 Active fexofenadine (KELLIE ALLERGY) 180 MG tabletIndications:[place] Allergic Rhinitis Take 1 Tab by mouth once daily Reasons: Hayfever 30 Tab 1 09/16/2016 Active Active Problems No known active problems Social [...] Mass Index 34.3 09/22/2020 10:38 PM CDT Plan of Treatment Not on file Care Teams Project Builder Relationship Specialty Start Date End Date Clark Thomas MD PCP - General Family Medicine 12/14/15
--- OUTSIDE RECORDS SUMMARY | 2024-06-17 17:49 | XMS_ITS | Encounter Summary ---
Author Organization [facility] Address [address] [place] [address] Care Team Providers Care Contract Processor Name Role Phone Clark Thomas MD Primary Care Provider Encounter Details Date Type Department Care Team (Late st Contact Info) Description 04/29/2024 MyChart Message Enc [facility] Multispecialty Care - [facility] [address], [address] [place] [id number] Jairo Man MD [address] [place] [address] MRI Social History Tobacco Use Types Packs/Day Years Used Date Smoking Tobacco: Never Smokeless Tobacco: Never Alcohol Use Standard Drinks/Week Comments Never 0 (1 standard drink = 0.6 oz pur e alcohol) PHQ-2 Answer Date Recorded Patient Health Questionnaire-2 Score 4 01/20/2024 Sex and Gender Information Value Date Recorded Sex Assigned at Not on file Legal Sex Male 12:43 PM CDT Gender Identity Not on file Sexual Orientation Not on file documented as of this encounter Plan of Treatment Upcoming Encounters Date Type Department Care Team (Late st Contact Info) Description 07/02/2024 10:00 AM CDT Appointment [facility] Cardiopulmonary Services [address] [place] [address] Deshawn Pearce MD Three [facility]. [address] [place], [place] [address] 09/03/2024 2:40 PM CDT [facility] [address], [address] [place] [address] Mookie De La Torre MD 3 [facility], [address] [place] [address] 09/29/2024 9:40 AM CDT [facility] [address], [address] [place] [id number] Jairo Man MD [address] [place] [address] documented as of this encounter Visit Diagnoses Not on filedocumented in this encounter Additional Health Concerns Assessment Noted Time PHQ-9 Depression Total Score: 14 024 7:39 AM CDT documented as of this encounter Care Teams Contract Processor Relationship Specialty Start Date End Date Clark Thomas MD [address] [place] [address] [address] [place] [address] PCP - General FAMILY PRACTICE 01/20/24 documented as of this encounter
--- OUTSIDE RECORDS SUMMARY | 2024-06-17 17:49 | XMS_ITS | Encounter Summary ---
Author Organization [facility] Address [address] [place] [address] Care Team Providers Care Bin Cleaner Name Role Phone Clark Thomas MD Primary Care Provider [phone] Encounter Details Date Type Department Care Team (Late st Contact Info) Description 04/23/2024 Pre-Procedure Call [facility] [place] [address] Jairo Man MD [address] [place], [place] [address] Anesthesia Record Procedure Summary Procedure Name Responsible Anesthesiologist Anesthesia Start Time Anesthesia Stop Time MRI CERV SPINE WWO CON Jv Curtis MD 04/29/24 0734 04/29/24 0913 Events Date Time Event Comment 04/29/2024 0650 0650 AN Anesthesia Prepped 0734 An Start Patient ID and consent checked and patient reassessed. 0734 An Start Data 0743 Preoxygenation 0743 An Induction The patient was reevaluated immediately before moderate or deep sedation use and before anesthesia induction. 0743 An LMA 0743 Anesthesia Ready 0902 An Emergence 0910 LMA Removed 0910 Face Mask Applied 0910 an stop data 0912 Post Anesthetic Care Handoff I completed my handoff to the receiving nurse during which we: 1. Identified the patient 2. Identified the responsible provider 3. Reviewed the pertinent medical history 4. Discussed the surgical course 5. Reviewed intra-op anesthesia management and issues during anesthesia 6. Set expectations for post-procedure period 7. Allowed opportunity for questions and acknowledgement of understanding. 0913 An Stop Meds * Agents No agents on file. * Blood No blood administrations on file. Lines, Drains, and Airways Type Details Placement Removal Peripheral IV Placement Date: 12/14; Placement Time: 0657; Placed Outside of This Facility?: No; Size: 20 G; Orientation: Left; Location: Hand; Site Prep: Chlorhexidine; Local Anesthetic: None; Inserted By: Christina HANSON; Insertion attempts: 1; Ultrasound-guided Placement?: No; Patient Tolerance: Tolerated well; Removal Date: 04/29/24; Removal Time: 1015; Removal Reason: Patient Discharged 04/29/24 0657 by Maame Mtz RN 04/29/24 1015 by Christine Desai RN Supraglottic Airway Placement Date: 12/14; Placement Time: 0743; Mask Ventilate: Not attempted; Airway Device: LMA; LMA Size: 5; Placed Outside of This Facility?: No; Placed By: BROOKE; Style: i-gel; Insertion Attempts:1; Breath Sounds:Clear bilaterally, Equal bilaterally; Breath Sound:Clear; Placement Verified By: Capnography, Chest Rise; Extubation Assessment: Patient spontaneously breathing, Deep breathes w/equal chest movements, Able to swallow, Atraumatic; Removal Date: 04/29/24; Removal Time: 0910; Removal Person: SOLID WASTE ANALYST; Removal Reason: End of Case 04/29/24 0743 by Courtney Hernandez CRNA 04/29/24 0910 by Courtney Hernandez CRNA documented in this encounter Social History Tobacco Use Types Packs/Day Years [...] on file documented as of this encounter Progress Notes * Ioana Rosas RN - 04/23/2024 11:19 AM CST Can you climb 2 flights of stairs without CP or extreme SOB? Yes, denies CP or extreme SOB Are you physically able to do the same things today that you could 6 months ago?yes What is your average blood pressure? 123/82 Any recent heart testing? (EKG, stress test, Echo?) 2021 (first instance of double vision related to current problem. Do you see a process assistant? Who is it? No, but Dr Lepe is referring to rule out double vision as a cardiac problem (to go see kidney and heart and blood doc as well) NPO after midnight Arrival [address] home and stay ovenright OBIOLOGY LABORATORY MANAGER OBIOLOGY LABORATORY MANAGER OBIOLOGY LABORATORY MANAGER documented in this encounter OR Notes * OR PreOp - Leigh Ann Sanchez CNP - 04/23/2024 12:32 PM CST Chart reviewed. Per phone interview, patient denies any SOB/CP with 2 FOS or recent changes in activity tolerance in past 6 months. Per phone interview, patient denies having a process assistant. Previoustesting found in Cardiology and Care Everywhere and results copied. EKG 01/07/24 SR Rate 75 Echo 12/02/21 LA is normal. Normal RV cavity size and function. LV cavity size is normal. Concentric LV remodeling and normal EF=67% but reduced strain. Normal Inferior vena cava. Normal aorta. No real change from 2009 OBIOLOGY LABORATORY MANAGER documented in this encounter Plan of Treatment Upcoming Encounters Date Type Department Care Team (Late st Contact Info) Description 07/02/2024 10:00 AM CDT Appointment [facility] Cardiopulmonary Services [address] [place] [address] Deshawn Pearce MD [facility] [address] [place] [address] 09/03/2024 2:40 PM CDT Office Visit [facility] Medical Group Multispecialty Care - [facility] [address], [address] [place] [address] Mookie De La Torre MD [address] [facility], [address] [place] [address] 09/29/2024 9:40 AM CDT Office Visit [facility] Medical Group Multispecialty Care - [facility] [address], [address] [place] [address] Jairo Man MD [address] [place] [address] documented as of this encounter Visit Diagnoses Not on filedocumented in this encounter Additional Health Concerns Assessment Noted Time PHQ-9 Depression Total Score: 14 024 7:39 AM CDT documented as of this encounter Care Teams Bin Cleaner Relationship Specialty Start Date End Date Clark Thomas MD [address] [place] [address] [address] [place] [address] PCP - General FAMILY PRACTICE 01/20/24 documented as of this encounter
--- OUTSIDE RECORDS SUMMARY | 2024-06-17 17:49 | XMS_ITS | Clinical Summary ---
Author Organization [facility] Address [address] [place] [address] Care Team Providers Care Poultry Farmer Name Role Phone Not Found, Stl Primary Care Provider Unavailabl e Allergies No known active allergies Medications topiramate (TOPIRAGEN) 25 mg Oral tablet Take 1 Tab by mouth 3 times daily. Active simvastatin (ZOCOR) 20 mg Oral tabletIndications:Pure hypercholesterolemia Take 20 mg by mouth Daily LATE. Active lisinopril (PRINIVIL) 30 mg Oral tabletIndications:Glome rulonephritis Take 30 mg by mouth daily. Active nortriptyline (PAMELOR) 25 mg Oral capsule Take 3 Caps by mouth daily. 90 Cap 3 010 Active SUMAtriptan (IMITREX) 100 mg Oral tabletIndications:Migra ine without aura, without mention of intractable migraine without mention of status migrainosus Take 1 Tab by mouth see administration instructions. 1 prn migraine, may rpeat in 2 hrs, max 2 per 24 hrs 9 Tab 1 011 Active Active Problems Problem Noted Date Diagnosed Date Migraine without aura, witho ut mention of intractable migraine without mention of status migrainosus 02/20/2010 Glomerulonephritis 02/20/2010 Pure hypercholesterolemia 02/20/2010 Family History Medical History Relation Name Comments Healthy Father Diabetes Mother Hypertension Mother Relation Name Status Comments Father Mother Social History Tobacco Use Types Packs/Day Years Used Date Smoking Tobacco: Never Alcohol Use Standard Drinks/Week Comments Yes 0.8 (1 standard drink = 0.6 oz p ure alcohol) Sex and Gender Information Value Date Recorded Sex Assigned at Not on file 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 Gender Identity Not on file Sexual Orientation Not on file Last Filed Vital Signs Vital Sign Reading Time Taken Comments Blood Pressure 118/80 02/20/2010 2:23 PM CDT Pulse 100 02/20/2010 2:23 PM CDT Temperature - - Respiratory Rate - - Oxygen Saturation - - Inhaled Oxygen Concentration - - Weight 109.3 kg (241 lb) 02/20/2010 2:23 PM CDT Height 185.4 cm (6' 1 ) 02/20/2010 2:23 PM CDT Body Mass Index 31.8 02/20/2010 2:23 PM CDT Plan of Treatment Health Maintenance Due Date Last Done Comments DTAP/TDAP/TD VACCINES (1 - Tdap) 2000 HEPATITIS B VACCINES (1 of 3 - 19+ 3-dose series) 2000 INFLUENZA VACCINE (#1) 2023 HPV VACCINES Aged Out No longer eligi ble based on patient's age to complete this topic Insurance xwife cell (Home) [id number] BLUE ACCESS/TRUE BLUE PPO Care Teams Poultry Farmer Relationship Specialty Start Date End Date Not Found, Stl NO ADDRESS ON FILE PCP - General 11/23/09
--- OUTSIDE RECORDS SUMMARY | 2024-06-17 17:49 | XMS_ITS | Continuity of Care Document ---
Author Organization [facility] Address [address] [place] [address] Phone Care Team Providers Care Work Study Student Name Role Phone Moises Faustin MD Unavailable Unavailable Medications Medication Instructions Dosage Effective Dates (start - stop) Status Comments WEIGHT MANAGEMENT FIBER (unknown strength) one daily Not Available - Active Advance Directives Directive Yes / No Effective Date File Name No Information Encounters Encounter Description Practice Location Reason(s) For Visit Diagnoses Date Provider Providers Copied on Encounter [facility], [address], [place], [place], [id number] , tel:[phone] [facility] No Information 6 Roxie De Leon. [address], [id number] . tel: [phone] [facility], [address], [place], [place], [id number] , tel: [phone] [facility] HematocheziaHistory of colonic polyps 6 Roxie De Leon. [address], [id number] . tel: [phone] Referring Provider: Clark Thomas, [address] [facility], [place], [address]. tel:[phone] Family History Family Member Type Diagnosis Age At Onset Brother Problem (finding) ulcerative colitis Payers Payer name Insurance type Covered libertarian ID Authoriza tion(s) CMR GHP ASO CI [id number] Social History Type Description Quantity Date Captured Comments Alcohol Use Details Unknown Caffeine Use Details Unknown Tobacco Use Status No Information Smoking Status No Information Sex Male Chief Complaint And Reason For Visit No Information Reason For Referral Reason For Referral No Information History Of Present Illness Encounter Date Complaint History Of Prese nt Illness No Information Functional Status Date Functional Assessmen t No Information Medications Administered Medication Instructions Dosage Effective Dates (start - stop) Status Comments No Drug Therapy Prescribed Instructions Date Instruction Additional Infor mation No Information Assessments Type Assessment Date No Information Patient Care Teams Name Effective Dates (start - stop) Status Members No Information
--- OUTSIDE RECORDS SUMMARY | 2024-06-17 17:49 | XMS_ITS | Clinical Summary ---
Author Organization [facility] Address [address] [facility] [address] Care Team Providers Care Biodiesel Process Control Technician Name Role Phone Clark Thomas MD Primary Care Provider [phone] Source Comments [facility],non-owned Affiliates and Associated Physician Practices is amultiple site organization consisting of ambulatory clinics and hospital sitesin [place], [place], [place] and [place]. This disclosure is being madepursuant to the Care Everywhere program and may not contain all information available regarding this patient. Last updated 18.[facility] Allergies No known active allergies Medications * [...] fluticasone propionate (FLONASE) 50 MCG/ACT nasal spray [place] 1 [place] into each nostril 2 times daily 1 [...] 09/22/2020 10:38 PM CDT Plan of Treatment Health Maintenance Due Date Last Done Comments LIPID TESTING 1981 HIV SCREENING 1996 HEPATITIS C SCREENING 07/15/1999 DTAP/TDAP/TD VACCINES (1 - Tdap) 2000 HEPATITIS B VACCINE (1 of 3 - 19+ 3-dose series) 2000 COVID-19 VACCINE ( - 2023-2 5 season) 2023 INFLUENZA VACCINE (#1) 2023 DEPRESSION SCREENING 04/22/2024 ZOSTER VACCINE (1 of 2) 07/20/2031 HIB VACCINE Aged Out No longer eligi ble based on patient's age to complete this topic HPV VACCINE Aged Out No longer eligi ble based on patient's age to complete this topic MENINGOCOCCAL (Group B) VACCINE Aged Out No longer eligible based on patient's age to complete this topic MENINGOCOCCAL VACCINE Aged Out No josey sonam eligible based on patient's age to complete this topic PNEUMOCOCCAL VACCINE Aged Out No long er eligible based on patient's age to complete this topic Care Teams Biodiesel Process Control Technician Relationship Specialty Start Date End Date Clark Thomas MD PCP - General Family Medicine 12/14/15
--- OUTSIDE RECORDS SUMMARY | 2024-06-17 17:49 | XMS_ITS | Encounter Summary ---
Author Organization [facility] Address [address] [place] [address] Care Team Providers Care Upper Inspector Name Role Phone Clark Thomas MD Primary Care Provider Encounter Details Date Type Department Care Team (Late st Contact Info) Description 01/07/2024 [facility] [address] [address] Scanned, Doc Pccl Social History Tobacco Use Types Packs/Day Years Used Date Smoking Tobacco: Never Assessed PHQ-2 Answer Date Recorded Patient Health Questionnaire-2 [...] Info) Description 07/02/2024 10:00 AM CDT Appointment [facility] Cardiopulmonary Services [address] [place] [address] Deshawn Pearce MD [facility]. [facility] [address] [place] [address] 09/03/2024 2:40 PM CDT Office Visit [facility] Multispecialty Care - [address], [facility] [address] [place] [address] Mookie De La Torre MD [address] [place] [address], [facility] [address] [place] [address] 09/29/2024 9:40 AM CDT Office Visit [facility] Multispecialty Care - [facility] [address] [facility], [address] [place] [address] Jairo Man MD [address] [place] [address] documented as of this encounter Procedures Procedure Name Priority Date/Time Associated Diagnosis Comments ECG GENERIC (SCAN ORDER) Routine 01/07/2024 documented in this encounter Results * ECG (01/07/2024) us Doc Pccl Scanned SCANNING Final Result [facility] documented in this encounter Visit Diagnoses Not on filedocumented in this encounter Care Teams Upper Inspector Relationship Specialty Start Date End Date Clark Thomas MD [address] [place] [address] [address] [place] [address] PCP - General FAMILY PRACTICE 01/20/24 documented as of this encounter
--- OUTSIDE RECORDS SUMMARY | 2024-06-17 17:49 | XMS_ITS | Encounter Summary ---
Author Organization [facility] Address [address] [place] [address] Care Team Providers Care Line Repairer Tower Name Role Phone Clark Thomas MD Primary Care Provider [phone] Encounter Details Date Type Department Care Team (Late st Contact Info) Description 02/26/2024 Pre-Procedure Call [facility] Pre-Admission Testing [place], [place] [address] Jairo Man MD [address] [place], [place] [address] Anesthesia Record Procedure Summary Procedure Name Responsible Anesthesiologist Anesthesia Start Time Anesthesia Stop Time MRI BRAIN WWO CON Bill Conley MD 03/04/24 0822 03/04 1007 Events Date Time Event Comment 03/04/2024 0740 AN KAI WHAKARURUHAU Prepped 0808 0808 AN Anesthesia Prepped 0822 An Start Patient ID and consent checked and patient reassessed. 0824 An Start Data 0826 Preoxygenation 0830 An Induction The patient was reevaluated immediately before moderate or deep sedation use and before anesthesia induction. 0831 An LMA 0839 Anesthesia Ready 0955 An Emergence 0959 LMA Removed 1002 Face Mask Applied 1002 an stop data 1007 Post Anesthetic Care Handoff I completed my handoff to the receiving nurse during which we: 1. Identified the patient 2. Identified the responsible provider 3. Reviewed the pertinent medical history 4. Discussed the surgical course 5. Reviewed intra-op anesthesia management and issues during anesthesia 6. Set expectations for post-procedure period 7. Allowed opportunity for questions and acknowledgement of understanding. 1007 An Stop Meds * Agents No agents on file. * Blood No blood administrations on file. Lines, Drains, and Airways Type Details Placement Removal Peripheral IV Placement Date: 02/20 07/13; Placement Time: 08; Placed Outside of This Facility?: No; Size: 20 G; Orientation: Right; Location: Hand; Site Prep: Chlorhexidine; Local Anesthetic: None; Insertion attempts: 1; Ultrasound-guided Placement?: No; Patient Tolerance: Tolerated well; Removal Date: 03/04/24; Removal Time: 113; Removal Reason: Patient Discharged 03/04/24 08 by Malou Thomas RN 03/04/241134 by Christine Desai RN Supraglottic Airway Placement Date: 02/20 07/13; Placement Time: 830; Mask Ventilate: Not attempted; Airway Device: LMA; LMA Size: 5; Placed By: BROOKE; Style: i-gel; Insertion Attempts:1; Breath Sounds:Equal bilaterally; Breath Sound:Clear; Placement Verified By: Capnography, Auscultation, Chest Rise; Extubation Assessment: Tolerated well, Patient spontaneously breathing, Atraumatic, Deep breathes w/equal chest movements; Removal Date: 03/04/24; Removal Time: 958; Removal Person: KAI WHAKARURUHAU; Removal Reason: End of Case 03/04/24 08 by Lalita Hills CRNA 03/04/24 09 by Lalita Hills CRNA documented in this encounter Social History [...] Progress Notes * Ioana Rosas RN - 02/26/2024 11:26 AM CST About 2 years ago, went to [facility] with blurred vision and panic attack and was told he may have had a stroke. Testing showed it was not a stroke, however, after the ED visit, Neurology ordered further testing under the dx of stroke to ensure it was covered by insurance. 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 Dr Lepe wants to ensure it is not a neck injury. Patient is very claustrophobic and was trapped in an MRI in the 70s. Can you climb 2 flights of stairs without CP or extreme SOB? Yes, denies Cp or extreme SOB Are you physically able to do the same things today that you could 6 months ago? yes What is your average blood pressure? 125/80 Any recent heart testing? (EKG, stress test, Echo?) [facility] feeling like he was having a heart attack - found to be a panic attack. (Records requested) Do you see a silk brusher? Who is it? No NPO after midnight Arrival 0630 Will have a ride home and someone overnight APPLICATION SUPPORT SPECIALIST APPLICATION SUPPORT SPECIALIST documented in this encounter OR Notes * OR PreOp - PINO Nelson - 02/27/2024 11:10 AM CST Chart reviewed. Per phone interview, patient denies extreme SOB/CP with 2 FOS or recent changes in activity tolerance in past 6 months. Per phone interview, patient denies having a silk brusher or previous cardiac testing with exception of recent EKG when seen at [place] [facility] for panic attack. Testing available in Media and results copied. EKG 01/07/24 SR Rate 75 APPLICATION SUPPORT SPECIALIST documented in this encounter Plan of Treatment Upcoming Encounters Date Type Department Care Team (Late st Contact Info) Description 07/02/2024 10:[address] [facility] Cardiopulmonary Services [address] [place] [address] Deshawn Pearce MD Three [facility]. [address] [place] [address] 09/03/2024 2:40 PM CDT Office Visit [facility] Multispecialty Care - [facility] [address] [facility] [address], [address] [place] [address] Mookie De La Torre MD 3 [facility], [address] [address] 09/29/2024 9:40 AM CDT Office Visit [facility] Multispecialty Care - [facility] [address] [facility], [address] [facility] [place] [address] Jairo Man MD [address] [place] [address] documented as of this encounter Visit Diagnoses Not on filedocumented in this encounter Additional Health Concerns Assessment Noted Time PHQ-9 Depression Total Score: 14 024 7:39 AM CDT documented as of this encounter Care Teams Line Repairer Tower Relationship Specialty Start Date End Date Clark Thomas MD [address] [place] [address] [address] [place] [address] PCP - General FAMILY PRACTICE 01/20/24 documented as of this encounter
--- OUTSIDE RECORDS SUMMARY | 2024-06-17 17:49 | XMS_ITS | Continuity of Care Document ---
Author Organization [facility] Address [address] [place] [address] [address] [place] [address] Phone Care Team Providers Care Computer Scientist Name Role Phone Jean-Baptiste OD, Gene Unavailable Unavailable Procedures Procedure Date Office/outpatient Visit, New Advance Directives Directive Yes / No Effective Date File Name No Information Encounters Encounter Description Practice Location Reason(s) For Visit Diagnoses Date Provider Providers Copied on Encounter Office/outpat ient Visit, [facility] [place], [address] [place] [address] [address], [place], [place], [id number], [place] tel:[phone] [facility] No Information [phone] Jean-Baptiste OD Gene. [address] [facility] [address] [facility] [address] , [address], [place], [address], [place]. tel:[phone] Family History Family Member Type Diagnosis Age At Onset No Information Payers Payer name Insurance type Covered republican ID Authoriza tion(s) No Information Social History Type Description Quantity Date Captured Comments Sex Male Smoking Status No Information Chief Complaint And Reason For Visit No Information Reason For Referral Reason For Referral No Information History Of Present Illness Encounter Date Complaint History Of Prese nt Illness No Information Functional Status Date Functional Assessmen t No Information Instructions Date Instruction Additional Infor mation No Information Assessments Type Assessment Date No Information Patient Care Teams Name Effective Dates (start - stop) Status Members No Information
--- OUTSIDE RECORDS SUMMARY | 2024-06-17 17:49 | XMS_ITS | Encounter Summary ---
Author Organization [facility] Address [address] [place] [address] Care Team Providers Care Drag Car Racer Name Role Phone Clark Thomas MD Primary Care Provider Encounter Details Date Type Department Care Team (Late st Contact Info) Description 04/20/2024 Magnetichart Message Enc [facility] Multispecialty Care - [facility] [address] [facility], [address] [place] [phone] Jairo Man MD [address] [place] [address] Bloodwork Social History Tobacco Use Types Packs/Day Years [...] Info) Description 07/02/2024 10:00 AM CDT Appointment [facility] Cardiopulmonary Services [address] [place] [address] Deshawn Pearce MD Three [facility]. [address] [place], [place] [address] 09/03/2024 2:40 PM CDT Office Visit [facility] Multispecialty Care - [facility] [address] [facility], [address] [place] [phone] Mookie De La Torre MD 3 [facility], [address] [place] [address] 09/29/2024 9:40 AM CDT [facility] [address] [facility], [address] [place] [address] Jairo Man MD [address] [facility] [place] [address] documented as of this encounter Visit Diagnoses Not on filedocumented in this encounter Additional Health Concerns Assessment Noted Time PHQ-9 Depression Total Score: 14 024 7:39 AM CDT documented as of this encounter Care Teams Drag Car Racer Relationship Specialty Start Date End Date Clark Thomas MD [address] [place] [address] [address] [place] [address] PCP - General FAMILY PRACTICE 01/20/24 documented as of this encounter
--- OUTSIDE RECORDS SUMMARY | 2024-06-17 17:49 | XMS_ITS | Clinical Summary ---
Author Organization [facility] Address [facility] [place] [address] Care Team Providers Care Laborer Rags Name Role Phone Clark Thomas MD Primary Care Provider Allergies No known active allergies Medications meloxicam (MOBIC) 15 MG tablet Take 1 tablet (15 mg total) by mouth daily as needed for Pain. 4 Active ALPRAZolam (XANAX) 0.25 MG tablet Take 1 tablet (0.25 mg total) by mouth as needed for Anxiety. Active atogepant (QULIPTA) tabletIndications:M igraine without aura, not intractable, without status migrainosus Take 1 tablet (60 mg total) by mouth daily. 30 tablet 11 4 Active Vitamin D3 (VITAMIN D) 50 mcg tablet Take 1 tablet (50 mcg total) by mouth daily. Active vitamin B-12 (CYANOCOBALAMIN) 500 MCG tablet Take 1 tablet (500 mcg total) by mouth daily. Active vitamin C (ASCORBIC ACID) 250 MG tablet Take 1 tablet (250 mg total) by mouth daily. Active rizatriptan (MAXALT-FELTING MACHINE OPERATOR HELPER) 10 MG disintegrating tabletIndications:M igraine without aura, not intractable, without status migrainosus Take 1 tablet (10 mg total) by mouth as needed for Migraine. May repeat in 2 hours if needed times one dose 16 tablet 11 4 Active SEMAGLUTIDE,0.25 OR 0.5MG/DOS, SC Inject into the skin every 7 days. Active Active Problems Problem Noted Date Diagnosed Date Blurring of vision 11/05/2023 Migraine aura without headache 11/05/2023 CKD (chronic kidney disease), stage I 10/17/2015 Dyslipidemia 10/17/2015 Glomerulonephritis 02/20/2010 Migraine without aura 02/20/2010 Pure hypercholesterolemia 02/20/2010 Resolved Problems Problem Noted Date Diagnosed Date Resolved Date Cerebrovascular accident (CV A) ([facility]) 12/01/2021 06/15/2024 Encounters Date Type Department Care Team Description 06/17/2024 Abstract [facility], [address] [place] [address] Russ Kunz MA 06/15/2024 9:15 AM PRODUCT DEVELOPER [facility] [address] [place] [address] Garfield Pearce MD Consult; Chest Pain; Blurred Vision 06/15/2024 Travel 06/01/2024 MyChart Message [facility] - [facility] [address], [address] [place] [address] Jairo Man MD Short term disability 05/16/2024 Scan [facility] Scanned, [facility] 05/13/2024 Scan [facility] Scanned, [facility] 05/11/2024 MyChart Message Enc [facility] Multispecialty Care - [facility] [address], [address] [place] [address] Jairo Man MD Testing question 05/07/2024 Scan [facility] SRVCS Scanned, [facility] 04/29/2024 7:34 AM PRODUCT DEVELOPER Anesthesia Event [facility] [place] [address] Jv Curtis MD Jarvis, Brittany L, POCKET MARKER 04/29/2024 6:19 AM PRODUCT DEVELOPER - 04/29/2024 10:16 AM PRODUCT DEVELOPER Hospital Encounter [facility] One [place] [address] Jairo Man MD Discharge Disposition: Home or Self Care (Routine Discharge) 04/29/2024 MyChart Message Enc [facility] Emergency Department - [facility] [address], [address] [place] [phone] Jairo Man MD MRI 04/29/2024 Telephone [facility] - [facility] [address], [address] [place] [phone] Jairo Man MD Results 04/29/2024 Travel 04/23/2024 9:40 AM PRODUCT DEVELOPER Office Visit [facility] - [facility] [address], [address] [place] [phone] Jairo Man MD Follow Up 04/23/2024 Pre-Procedure Call [facility] Pre-Admission Testing [address] [facility] [place] [address] Jairo Man MD 04/23/2024 Travel 04/21/2024 Scan [facility] INFO SRVCS Scanned, [facility] 04/20/2024 MyChart Message Enc [facility] Emergency Department - [facility] [address], [address] [place] [phone] Jairo Man MD Bloodwork 04/20/2024 MyChart Message Enc [facility] [address], [address] [place] [phone] Jairo Man MD Temporary disability form 04/16/2024 Telephone [facility] [address] [facility] [address] [place] [address] Jairo Man MD Prior Authorization (Qulipta) 03/30/2024 [facility]Chart [facility] [address] [facility] [address] [place] [address] Jairo Man MD Rizatriptan 03/25/2024 Telephone [facility] Emergency Department - [facility] [address] [facility] [address] [place] [address] Jairo Man MD Prior Authorization (Qulipta) from Last 3 Months Immunizations Name Administration Dates Next Due MODERNA COVID-19 (12+) MRNA, LNP-S, PF, 100 MCG/ 0.5 ML DOSE 05/02/2021 Family History Medical History Relation Comments Diabetes Father CHF Maternal Grandmother Open Heart Maternal Grandmother Stent Cardiac Maternal Grandmother Diabetes Mother Cancer Paternal Grandfather Open Heart Paternal Grandmother Stent Cardiac Paternal Grandmother Relation Status Comments Father Maternal Grandfather Maternal Grandmother Mother Paternal Grandfather Paternal Grandmother Social History Tobacco Use Types Packs/Day Years Used Date Smoking Tobacco: Never Smokeless Tobacco: Never Tobacco Cessation:Counseling Given: Yes Alcohol Use Standard Drinks/Week Comments Never 0 [...] Sign Reading Time Taken Comments Blood Pressure 136/90 06/15/2024 9:11 AM PRODUCT DEVELOPER Pulse 75 06/15/2024 9:11 AM PRODUCT DEVELOPER Temperature 36.2 C (97.2 F) 04/29/2024 10:07 AM PRODUCT DEVELOPER Respiratory Rate 16 04/29/2024 10:07 AM PRODUCT DEVELOPER Oxygen Saturation 98% 04/29/2024 10:07 AM PRODUCT DEVELOPER Inhaled Oxygen Concentration - - Weight 112.5 kg (248 lb) 06/15/2024 9:11 AM PRODUCT DEVELOPER Height 185.4 cm (6' 1 ) 06/15/2024 9:11 AM PRODUCT DEVELOPER Body Mass Index 32.72 06/15/2024 9:11 AM PRODUCT DEVELOPER Plan of Treatment Upcoming Encounters Date Type Department Care Team (Late st Contact Info) Description 07/02/2024 10:00 AM CDT Appointment [facility] [address] [place] [address] Garfield Pearce MD [address] [facility]. [address] [place] [address] 09/03/2024 2:40 PM CDT Office [facility] Care - [address], [address] [place] [address] Mookie De La Torre MD [address] [facility] [address] [place] [address] 09/29/2024 9:40 AM CDT Office Visit [facility] Emergency Department - [address], [address] [place] [address] Jairo Man MD [address] [place] [address] [place] [address] Health Maintenance Due Date Last Done Comments ASCVD Statin 1981 Annual Physical 1984 Hepatitis C 07/20/1999 DTaP, Tdap and Td Vaccines ( 1 - Tdap) 2000 Hepatitis B Vaccines (1 of 3 - 19+ 3-dose series) 2000 COVID-19 Vaccine (2023-2 5 season) 2023 05/02/2021 Influenza Adult (#1) 2024 PHQ-2 (Physician [place]) 04/22/2024 01/20/2024 HPV Vaccines Aged Out No longer eligi ble based on patient's age to complete this topic Meningococcal B Vaccine Aged Out No l onger eligible based on patient's age to complete this topic Meningococcal Vaccine Aged Out No josey sonam eligible based on patient's age to complete this topic Pneumococcal Vaccine: Pediat rics (0 to 5 Years) and At-Risk Patients (6 to 64 Years) Aged Out No longer eligi ble based on patient's age to complete this topic RSV Immunizations Under 20 Months Aged Out No longer eligible based on patient's age to complete this topic Procedures Procedure Name Priority Date/Time Associated Diagnosis Comments ELECTROCARDIOGRAM (NON MIDMARK ACQUIRED) Routine 06/15/2024 9:23 AM PRODUCT DEVELOPER Chest pain in adult MRI THOR SPINE WWO CON Routine 5 9:01 AM PRODUCT DEVELOPER MS (multiple sclerosis) ([facility]) MRI CERV SPINE WWO CON Routine 5 9:01 AM PRODUCT DEVELOPER MS (multiple sclerosis) ([facility]) POCT GLUCOSE - THIBODEAUX DOCKED DEVICE Routine 04/29/2024 6:59 AM PRODUCT DEVELOPER VITAMIN D, 25 OH Routine 04/01/2024 COMPREHENSIVE METABOLIC PANEL Routine 04/01/2024 LIPID PANEL Routine 04/01/2024 CBC, MANUAL DIFF Routine 04/01/2024 THYROXINE, FREE (FT4) Routine 04/01/2024 HEMOGLOBIN, GLYCOSYLATED Routine 04/01/2024 THYROID STIM HORMONE TSH Routine 04/01/2024 FREE T3 Routine 04/01/2024 from Last 3 Months Results * ELECTROCARDIOGRAM (06/15/2024 9:23 AM PRODUCT DEVELOPER) 06/15/2024 9:23 AM PRODUCT DEVELOPER Narrative [facility] - 06/15/2024 1:21 PM PRODUCT DEVELOPER [facility] Date: 2024-06-15 Pat Name: COLTEN CAVAZOS Department: 107 Room: Gender: Male Yield Improvement Engineer: brie : 1980 Requested By: GARFIELD PEARCE Order Number: [id number] Reading MD: Garfield Pearce Measurements Intervals [place] Rate: 67 P: 26 DE: 153 QRS: -14 QRSD: 87 T: 11 QT: 361 QTc: 381 Interpretive Statements SINUS RHYTHM No prior ECG for comparison UCT DEVELOPER Procedure Note Garfield Pearce MD - 06/15/2024 [facility] Test Date: 2024-06-15 Pat Name: COLTEN CAVAZOS Department: 107 Room: Gender: Male Yield Improvement Engineer: brie : 1980 Requested By: GARFIELD PEARCE Order Number: [id number] Reading MD: Garfield Pearce Measurements Intervals [place] Rate: 67 P: 26 DE: 153 QRS: -14 QRSD: 87 T: 11 QT: 361 QTc: 381 Interpretive Statements SINUS RHYTHM No prior ECG for comparison UCT DEVELOPER us Garfield Pearce MD PROCEDURES-ORDERABLE NO MARY KATE RGE Final Result [facility] * MRI THOR SPINE WWO CON (04/29/2024 9:01 AM PRODUCT DEVELOPER) Anatomical Region Laterality Modality Spine Magnetic Resonan ce 04/29/2024 11:1 2 AM PRODUCT DEVELOPER Impressions 04/29/2024 11:19 AM PRODUCT DEVELOPER IMPRESSION: 1. Normal appearance of the cervical and thoracic spinal cord. 2. Minimal cervical and thoracic spondylosis, as described above. Ordered By: JAIRO MAN Interpreted By: Juan Solis MD, 04/29/2024 11:12 AM Narrative 04/29/2024 11:19 AM PRODUCT DEVELOPER [address] [address] Examination: MRI THOR SPINE WWO CON, MRI CERV SPINE WWO CON, 04/29/2024 7:24 AM. Technique: Multiplanar multisequence magnetic resonance images of the cervical and thoracic spine were obtained before and after the administration of 20 mL of Dotarem injected through the left hand IV, without evidence of an adverse reaction. Clinical history: Multiple sclerosis, headaches, back pain, blurred vision, and neck pain Comparison: MRI brain 03/04/2024 Findings: MRI cervical spine: There is straightening of the normal cervical lordosis that is likely positional. The cervical vertebral bodies and facets are well aligned. The cervical vertebral body heights are preserved. The marrow signal appears normal. No abnormal prevertebral or paraspinal soft tissue swelling. The cervical spinal cord has a normal signal throughout its course. No abnormal enhancement of the cervical spinal cord. Facet joint hypertrophy contributes to moderate bilateral neural foraminal stenosis at C7-T1. Otherwise, there is no significant spinal canal or neural foraminal stenosis at any level. MRI thoracic spine: There are 12 rib-bearing thoracic type vertebral bodies. The thoracic vertebral bodies and facets are well aligned. The thoracic vertebral body heights are preserved. No abnormal prevertebral or paraspinal soft tissue swelling. Facet joint hypertrophy contributes to mild right T2-3 and T3-4 neural foraminal stenosis. Atelectasis in the lung bases. No abnormal hyperintensity seen within the thoracic spinal cord. No abnormal enhancement of the thoracic spinal cord. Procedure Note Juan Solis MD - 04/29/[address] [address] Examination: MRI THOR SPINE WWO CON, MRI CERV SPINE WWO CON, 04/29/2024 7:24AM. Technique: Multiplanar multisequence magnetic resonance images of thecervical and thoracic spine were obtained before and after theadministration of 20 mL of Dotarem injected through the left hand IV,without evidence of an adverse reaction. Clinical history: Multiple sclerosis, headaches, back pain, blurredvision, and neck pain Comparison: MRI brain 03/04/2024 Findings: MRI cervical spine: There is straightening of the normal cervical lordosisthat is likely positional. The cervical vertebral bodies and facets arewell aligned. The cervical vertebral body heights are preserved. Themarrow signal appears normal. No abnormal prevertebral or paraspinal softtissue swelling. The cervical spinal cord has a normal signal throughoutits course. No abnormal enhancement of the cervical spinal cord. Facetjoint hypertrophy contributes to moderate bilateral neural foraminalstenosis at C7-T1. Otherwise, there is no significant spinal canal orneural foraminal stenosis at any level. MRI thoracic spine: There are 12 rib-bearing thoracic type vertebralbodies. The thoracic vertebral bodies and facets are well aligned. Thethoracic vertebral body heights are preserved. No abnormal prevertebral orparaspinal soft tissue swelling. Facet joint hypertrophy contributes tomild right T2-3 and T3-4 neural foraminal stenosis. Atelectasis in thelung bases. No abnormal hyperintensity seen within the thoracic spinalcord. No abnormal enhancement of the thoracic spinal cord. IMPRESSION: 1. Normal appearance of the cervical and thoracic spinal cord. 2. Minimal cervical and thoracic spondylosis, as described above. Ordered By: JAIRO MAN Interpreted By: Juan Solsi MD, 04/29/2024 11:12 AM us Jairo Man MD MRI Final Res ult * MRI CERV SPINE WWO CON (04/29/2024 9:01 AM PRODUCT DEVELOPER) Anatomical Region Laterality Modality Spine Magnetic Resonan ce 04/29/2024 11:1 2 AM PRODUCT DEVELOPER Impressions 04/29/2024 11:19 AM PRODUCT DEVELOPER IMPRESSION: 1. Normal appearance of the cervical and thoracic spinal cord. 2. Minimal cervical and thoracic spondylosis, as described above. Ordered By: JAIRO MAN Interpreted By: Juan Solis MD, 04/29/2024 11:12 AM Narrative 04/29/2024 11:19 AM PRODUCT DEVELOPER [address] [address] Examination: MRI THOR SPINE WWO CON, MRI CERV SPINE WWO CON, 04/29/2024 7:24 AM. Technique: Multiplanar multisequence magnetic resonance images of the cervical and thoracic spine were obtained before and after the administration of 20 mL of Dotarem injected through the left hand IV, without evidence of an adverse reaction. Clinical history: Multiple sclerosis, headaches, back pain, blurred vision, and neck pain Comparison: MRI brain 03/04/2024 Findings: MRI cervical spine: There is straightening of the normal cervical lordosis that is likely positional. The cervical vertebral bodies and facets are well aligned. The cervical vertebral body heights are preserved. The marrow signal appears normal. No abnormal prevertebral or paraspinal soft tissue swelling. The cervical spinal cord has a normal signal throughout its course. No abnormal enhancement of the cervical spinal cord. Facet joint hypertrophy contributes to moderate bilateral neural foraminal stenosis at C7-T1. Otherwise, there is no significant spinal canal or neural foraminal stenosis at any level. MRI thoracic spine: There are 12 rib-bearing thoracic type vertebral bodies. The thoracic vertebral bodies and facets are well aligned. The thoracic vertebral body heights are preserved. No abnormal prevertebral or paraspinal soft tissue swelling. Facet joint hypertrophy contributes to mild right T2-3 and T3-4 neural foraminal stenosis. Atelectasis in the lung bases. No abnormal hyperintensity seen within the thoracic spinal cord. No abnormal enhancement of the thoracic spinal cord. Procedure Note Juan Solis MD - 04/29/2024 [address] [place], [place] [address] Examination: MRI THOR SPINE WWO CON, MRI CERV SPINE WWO CON, 04/29/2024 7:24AM. Technique: Multiplanar multisequence magnetic resonance images of thecervical and thoracic spine were obtained before and after theadministration of 20 mL of Dotarem injected through the left hand IV,without evidence of an adverse reaction. Clinical history: Multiple sclerosis, headaches, back pain, blurredvision, and neck pain Comparison: MRI brain 03/04/2024 Findings: MRI cervical spine: There is straightening of the normal cervical lordosisthat is likely positional. The cervical vertebral bodies and facets arewell aligned. The cervical vertebral body heights are preserved. Themarrow signal appears normal. No abnormal prevertebral or paraspinal softtissue swelling. The cervical spinal cord has a normal signal throughoutits course. No abnormal enhancement of the cervical spinal cord. Facetjoint hypertrophy contributes to moderate bilateral neural foraminalstenosis at C7-T1. Otherwise, there is no significant spinal canal orneural foraminal stenosis at any level. MRI thoracic spine: There are 12 rib-bearing thoracic type vertebralbodies. The thoracic vertebral bodies and facets are well aligned. Thethoracic vertebral body heights are preserved. No abnormal prevertebral orparaspinal soft tissue swelling. Facet joint hypertrophy contributes tomild right T2-3 and T3-4 neural foraminal stenosis. Atelectasis in thelung bases. No abnormal hyperintensity seen within the thoracic spinalcord. No abnormal enhancement of the thoracic spinal cord. IMPRESSION: 1. Normal appearance of the cervical and thoracic spinal cord. 2. Minimal cervical and thoracic spondylosis, as described above. Ordered By: JAIRO MAN Interpreted By: Juan Solis MD, 04/29/2024 11:12 AM us Jairo Man MD MRI Final Res ult * POCT glucose (04/29/2024 6:59 AM PRODUCT DEVELOPER) GLUCOSE POC 86 70 - 99 mg/dL 04/29/2024 7:04 AM PRODUCT DEVELOPER [facility] 04/29/2024 6:59 AM PRODUCT DEVELOPER Result [facility] Jairo Man MD POCT ORDERABLES - DEVICE Final Result [facility] [address] [place] [address], * HEMOGLOBIN, GLYCOSYLATED (04/01/2024) Pathologist [facility] HGB A1C 6.3 % Default History Genericprovider LABORATORY Final Result * FREE T3 (04/01/2024) Pathologist [facility] FREE T3 3.5 Default History Genericprovider LABORATORY Final Result * COMPREHENSIVE METABOLIC PANEL (04/01/2024) Pathologist [facility] SODIUM S/P/B 142 GLUCOSE 117 mg/dL AST 14 BUN 9 CREATININE S/P/B 0.92 0.7 - 1.3 CALCIUM S/P/B 9.1 POTASSIUM S/P/B 4.2 CHLORIDE S/P/B 106 ALT 18 GFR ESTIMATE 107 Default History Genericprovider LABORATORY Final Result * LIPID PANEL (04/01/2024) Pathologist [facility] CHOLESTEROL 164 TRIGLYCERIDES 111 HDL 41 LDL (CALCULATED) 102 NON HDL CHOLESTEROL 123 Default History Genericprovider LABORATORY Final Result * CBC, MANUAL DIFF (04/01/2024) Pathologist [facility] WBC 6.6 HGB 16.3 HCT 49.3 PLT 193 Default History Genericprovider LABORATORY Final Result * THYROXINE, FREE (FT4) (04/01/2024) Pathologist [facility] FREE T4 1.3 Default History Genericprovider LABORATORY Final Result * THYROID STIM HORMONE TSH (04/01/2024) TSH 1.92 us Default History Genericprovider LABORATORY Final Result * VITAMIN D, 25 OH (04/01/2024) VITAMIN D 25 HYDROXY S/P/B 37 04/01/2024 us Default History Genericprovider LABORATORY Final Result from Last 3 Months Insurance [facility] Care Teams Laborer Rags Relationship Specialty Start Date End Date Clark Thomas MD [address] [place] [address] [address] [place] [address] PCP - General FAMILY PRACTICE 01/20/24
--- OUTSIDE RECORDS SUMMARY | 2024-06-17 17:49 | XMS_ITS | Clinical Summary ---
Author Organization [facility] Address [address], [address] [place] [address] Phone Care Team Providers Care Station Worker Name Role Phone Clark Thomas MD Primary Care Provider [phone] Jairo Man MD Unavailable [phone] Gene Patel MD Unavailable [phone] Allergies No known active allergies Medications meloxicam (MOBIC) 15 MG Tablet Take 15 mg by mouth as needed. 01/05/2024 Active Atogepant 60 MG Tablet Take 60 mg by mouth daily. 01/20/2024 Active rizatriptan (MAXALT-CHANGE NUMBER OPERATOR) 10 MG TABLET DISPERSIBLE Take 10 mg by mouth if needed. 02/25/2024 Active Active Problems No known active problems Encounters Date Type Department Care Team Description 05/13/2024 10:30 AM CATALOGUE CLERK [facility] [address] [phone] Gene Patel MD Migraine with aura and without status migrainosus, not intractable (Primary Dx) 05/13/2024 Travel from Last 3 Months Family History Medical History Relation Name Comments Diabetes Father Diabetes Mother Brain Cancer Other daughter had br ain cancer (resolved now) Relation Name Status Comments Father Alive Mother Alive Other Alive Social History Tobacco Use Types Packs/Day Years Used Date Smoking Tobacco: Never Smokeless Tobacco: Never Sex and Gender Information Value Date Recorded Sex Assigned at Not on file Legal Sex Male 10:05 PM CDT Gender Identity Not on file Sexual Orientation Not on file Last Filed Vital Signs Vital Sign Reading Time Taken Comments Blood Pressure 140/90 05/13/2024 10:26 AM CATALOGUE CLERK Pulse 83 05/13/2024 10:26 AM CATALOGUE CLERK Temperature 36.5 C (97.7 F) 05/13/2024 10:26 AM CATALOGUE CLERK Respiratory Rate 18 05/13/2024 10:26 AM CATALOGUE CLERK Oxygen Saturation 97% 05/13/2024 10:26 AM CATALOGUE CLERK Inhaled Oxygen Concentration - - Weight 113.9 kg (251 lb) 05/13/2024 10:26 AM CATALOGUE CLERK Height 186.7 cm (6' 1.5 ) 05/13/2024 10:26 AM CS T Body Mass Index 32.67 05/13/2024 10:26 AM CATALOGUE CLERK Plan of Treatment Health Maintenance Due Date Last Done Comments Hepatitis C Virus (HCV) Screening 1980 TdaP Immunization 1980 Hepatitis B Immunization (1 of 3 - 19+ 3-dose series) 2000 Influenza Immunization (#1) 2023 SARS-COV-2 Immunization (2 - season) 2023 05/02/2021 Respiratory Syncytial Virus (RSV) Immunization (Adult) (1 - 1-dose 75+ series) 2056 Meningococcal Immunization (ACWY) Aged Out No longer eligible based on patient's age to complete this topic Pneumococcal Immunization Combined Aged Out No longer eligible based on patient's age to complete this topic Rotavirus Immunization Aged Out No lo nger eligible based on patient's age to complete this topic Insurance [facility] Care Teams Station Worker Relationship Specialty Start Date End Date Clark Thomas MD [address] [address] PCP - General Family Medicine 04/24/24 Jairo Man MD [address] [place] [id number] Neuromuscular Medicine 04/24/24 Gene Patel MD [address] [place] [phone] Consulting Physician Oncology 04/24/24
--- OUTSIDE RECORDS SUMMARY | 2024-06-17 17:49 | XMS_ITS | Encounter Summary ---
Author Organization [facility] Address [address] [place] [address] Care Team Providers Care Printing Sales Representative Name Role Phone Clark Thomas MD Primary Care Provider [phone] Encounter Details Date Type Department Care Team (Latest Contact Info) Description 04/20/2024 Baytext Message Enc [facility] Medical [facility] Multispecialty Care - [facility] 3 [facility], [address] [place] [address] Jairo Man MD 3 [place], [place] [id number] Temporary disability form Social History Tobacco Use Types Packs/Day Years [...] Info) Description 07/02/2024 10:00 AM CDT Appointment [facility] Cardiopulmonary Services [address] [place] [address] Deshawn Pearce MD Three [facility]. [address] [place], [place] [address] 09/03/2024 2:40 PM CDT Office Visit [facility] Multispecialty Care - [facility] 3 [facility], [address] [place] [address] Mookie De La Torre MD 3 [facility], [address] [place] [address] 09/29/2024 9:40 AM CDT [facility] 3 [facility], [address] [place] [address] Jairo Man MD 3 [facility] [place] [address] documented as of this encounter Visit Diagnoses Not on filedocumented in this encounter Additional Health Concerns Assessment Noted Time PHQ-9 Depression Total Score: 14 024 7:39 AM CDT documented as of this encounter Care Teams Printing Sales Representative Relationship Specialty Start Date End Date Clark Thomas MD [address] [place] [address] [address] [place] [address] PCP - General FAMILY PRACTICE 01/20/24 documented as of this encounter
--- OUTSIDE RECORDS SUMMARY | 2024-06-17 17:49 | XMS_ITS | Encounter Summary ---
Author Organization [facility] Address [address] [place] [address] Care Team Providers Care Linux System Admin Name Role Phone Clark Thomas MD Primary Care Provider Encounter Details Date Type Department Care Team (Late st Contact Info) Description 06/17/2024 Abstract [facility] THREE [facility], [address] [place] [address] Russ Kunz MA Social History Tobacco Use Types Packs/Day Years [...] Info) Description 07/02/2024 10:00 AM CDT Appointment [facility] Cardiopulmonary Services [address] [place] [address] Deshawn Pearce MD Three [facility]. [address] [place] [address] 09/03/2024 2:40 PM CDT Office Visit [facility] Medical Group Multispecialty Care - [facility] 3 [facility], [address] [place] [address] Mookie De La Torre MD 3 [facility], [address] [place] [address] 09/29/2024 9:40 AM CDT Office Visit [facility] Medical Group Multispecialty Care - [facility] 3 [facility], [address] [place] [address] Jairo Man MD 3 [place] [address] documented as of this encounter Procedures Procedure Name Priority Date/Time Associated Diagnosis Comments HEMOGLOBIN, GLYCOSYLATED Routine 04/01/2024 FREE T3 Routine 04/01/2024 COMPREHENSIVE METABOLIC PANEL Routine 04/01/2024 LIPID PANEL Routine 04/01/2024 CBC, MANUAL DIFF Routine 04/01/2024 THYROXINE, FREE (FT4) Routine 04/01/2024 THYROID STIM HORMONE TSH Routine 04/01/2024 VITAMIN D, 25 OH Routine 04/01/2024 documented in this encounter Results * VITAMIN D, 25 OH (04/01/2024) VITAMIN D 25 HYDROXY S/P/B 37 04/01/2024 us Default History Genericprovider LABORATORY Final Result * COMPREHENSIVE METABOLIC PANEL (04/01/2024) SODIUM S/P/B 142 GLUCOSE 117 mg/dL AST 14 BUN 9 CREATININE S/P/B 0.92 0.7 - 1.3 CALCIUM S/P/B 9.1 POTASSIUM S/P/B 4.2 CHLORIDE S/P/B 106 ALT 18 GFR ESTIMATE 107 us Default History Genericprovider LABORATORY Final Result * LIPID PANEL (04/01/2024) Pathologist [facility] CHOLESTEROL 164 TRIGLYCERIDES 111 HDL 41 LDL (CALCULATED) 102 NON HDL CHOLESTEROL 123 us Default History Genericprovider LABORATORY Final Result * CBC, MANUAL DIFF (04/01/2024) Pathologist [facility] WBC 6.6 HGB 16.3 HCT 49.3 PLT 193 us Default History Genericprovider LABORATORY Final Result * THYROXINE, FREE (FT4) (04/01/2024) Pathologist [facility] FREE T4 1.3 us Default History Genericprovider LABORATORY Final Result * HEMOGLOBIN, GLYCOSYLATED (04/01/2024) [facility] HGB A1C 6.3 % us Default History Genericprovider LABORATORY Final Result * THYROID STIM HORMONE TSH (04/01/2024) Pathologist [facility] TSH 1.92 us Default History Genericprovider LABORATORY Final Result * FREE T3 (04/01/2024) [facility] FREE T3 3.5 us Default History Genericprovider LABORATORY Final Result documented in this encounter Visit Diagnoses Not on filedocumented in this encounter Additional Health Concerns Assessment Noted Time PHQ-9 Depression Total Score: 14 024 7:39 AM CDT documented as of this encounter Care Teams Linux System Admin Relationship Specialty Start Date End Date Clark Thomas MD [address] [place] [address] 2 [place] [address] PCP - General FAMILY PRACTICE 01/20/24 documented as of this encounter
[2024-06-17 18:35] VITALS: BP 150/91; PULSE 74; RESP 24; O2SAT 100
[2024-06-17 19:03] LABS: Add Urine Microscopic? YES; Appearance Urine Clear (Clear); Bacteria Urine None Seen /hpf; Bilirubin Urine Negative (Negative); Blood Urine Negative (Negative); Color Urine Yellow (Yellow); Glucose Urine UA Negative (Negative); Ketones Urine 1+ mg/dL (Negative); Leukocyte Esterase Ur Negative LEU/UL (Negative); Nitrate Urine Negative (Negative); Non Pathogenic Casts 0-2; Protein Urine 2+ mg/dL (Negative); RBC Urine 0-2 /hpf (0-2); Specific Grav Ur 1.025 (1.001-1.035); Squamous Epithelial Cell Urine None Seen /hpf (Few); WBC Urine 0-5 /hpf (0-3)
[2024-06-17 19:11] LABS: Troponin I < 0.012 ng/mL (0.000-0.034)
--- OUTSIDE RECORDS SUMMARY | 2024-06-17 19:11 | XMS_ITS | Clinical Summary ---
Author Organization [facility] Address [address] [facility] [place] [address] Care Team Providers Care Zinc Furnace Charger Name Role Phone Clark Thomas MD Primary Care Provider [phone] Source Comments [facility],non-owned Affiliates and Associated Physician Practices is amultiple site organization consisting of ambulatory clinics and hospital sitesin [place], [place], [place] and [place]. This disclosure is being madepursuant to the Care Everywhere program and may not contain all information available regarding this patient. Last updated 18.[facility] Allergies No known active allergies Medications * [...] fluticasone propionate (FLONASE) 50 MCG/ACT nasal spray [place] 1 [place] into each nostril 2 times daily 1 [...] age to complete this topic Care Teams Zinc Furnace Charger Relationship Specialty Start Date End Date Clark Thomas MD PCP - General Family Medicine 12/14/15
--- OUTSIDE RECORDS SUMMARY | 2024-06-17 19:11 | XMS_ITS | Encounter Summary ---
Author Organization [facility] Address [address] [place] [address] Care Team Providers Care Hospital Manager Name Role Phone Clark Thomas MD Primary Care Provider Encounter Details Date Type Department Care Team (Late st Contact Info) Description 01/07/2024 [facility], [address] [address] Scanned, Doc Pccl Social History Tobacco Use [...] Info) Description 07/02/2024 10:00 AM CDT Appointment [facility] Cardiopulmonary Services [address] [place] [address] Deshawn Pearce MD [facility]. [facility] [address] [place] [address] 09/03/2024 2:40 PM CDT Office Visit [facility] Medical Group Multispecialty Care - [address], [facility] [address] [place] [address] Mookie De La Torre MD [address] [place] [address], [facility] [address] [place] [address] 09/29/2024 9:40 AM CDT Office Visit [facility] Medical Group Multispecialty Care - [facility] 3 [facility], [address] [place] [address] Jairo Man MD 3 [place] [address] documented as of this encounter Procedures Procedure Name Priority Date/Time Associated Diagnosis Comments ECG GENERIC (SCAN ORDER) Routine 01/07/2024 documented in this encounter Results * ECG (01/07/2024) us Doc Pccl Scanned SCANNING Final Result [facility] ONBASE documented in this encounter Visit Diagnoses Not on filedocumented in this encounter Care Teams Hospital Manager Relationship Specialty Start Date End Date Clark Thomas MD [address] [place] [address] [address] [place] [address] PCP - General FAMILY PRACTICE 01/20/24 documented as of this encounter
--- OUTSIDE RECORDS SUMMARY | 2024-06-17 19:11 | XMS_ITS | Encounter Summary ---
Author Organization [facility] Address [address] [place] [address] Care Team Providers Care Corporate Librarian Name Role Phone Clark Thomas MD Primary Care Provider Encounter Details Date Type Department Care Team (Late st Contact Info) Description 04/20/2024 Bio-Adhesive Alliancehart Message Enc [facility] Medical Group Multispecialty Care - [facility] 3 [facility], [address] [place] [address] Jairo Man MD 3 [place] [address] Bloodwork Social History Tobacco Use Types Packs/Day [...] Info) Description 07/02/2024 10:00 AM CDT Appointment [facility] Cardiopulmonary Services [address] [place] [address] Deshawn Pearce MD Three [facility]. [address] [place], [place] [address] 09/03/2024 2:40 PM CDT Office Visit [facility] Multispecialty Care - [facility] 3 [facility], [address] [place] [address] Mookie De La Torre MD 3 [facility], [address] [place] [address] 09/29/2024 9:40 AM CDT [facility] 3 [facility], [address] [place] [address] Jairo Man MD 3 [facility] [place] [address] documented as of this encounter Visit Diagnoses Not on filedocumented in this encounter Additional Health Concerns Assessment Noted Time PHQ-9 Depression Total Score: 14 024 7:39 AM CDT documented as of this encounter Care Teams Corporate Librarian Relationship Specialty Start Date End Date Clark Thomas MD [address] [place] [address] [address] [place] [address] PCP - General FAMILY PRACTICE 01/20/24 documented as of this encounter
--- OUTSIDE RECORDS SUMMARY | 2024-06-17 19:11 | XMS_ITS | Encounter Summary ---
Author Organization [facility] Address [address] [place] [address] Care Team Providers Care Shipping Coordinator Name Role Phone Clark Thomas MD Primary Care Provider [phone] Encounter Details Date Type Department Care Team (Late st Contact Info) Description 02/26/2024 Pre-Procedure Call [facility] Pre-Admission Testing [address] [place], [place] [address] Jairo Man MD 3 [place], [place] [address] Anesthesia Record Procedure Summary Procedure Name Responsible Anesthesiologist Anesthesia Start Time Anesthesia Stop Time MRI BRAIN WWO CON Bill Conley MD 03/04/24 0822 03/04 1007 Events Date Time Event Comment 03/04/2024 0740 AN MEDIA RELATIONS INTERN Prepped 0808 0808 AN Anesthesia Prepped 0822 [...] Date: 03/04/24; Removal Time: 958; Removal Person: MEDIA RELATIONS INTERN; Removal Reason: End of Case 03/04/24 08 by Lalita Hills CRNA 03/04/24 09 by Lalita Hlils CRNA documented in this encounter Social History [...] CST About 2 years ago, went to [facility] with blurred vision and panic attack and [...] attack. (Records requested) Do you see a straw hat brusher? Who is it? No NPO after midnight Arrival 0630 Will have a ride home and someone overnight PATIAL SYSTEMS INTEGRATOR PATIAL SYSTEMS INTEGRATOR documented in this encounter OR Notes * OR PreOp - PINO Nelson - 02/27/2024 11:10 AM CST Chart reviewed. Per phone interview, patient denies extreme SOB/CP with 2 FOS or recent changes in activity tolerance in past 6 months. Per phone interview, patient denies having a straw hat brusher or previous cardiac testing with exception of recent EKG when seen at [facility] for panic attack. Testing available in Media and results copied. EKG 01/07/24 SR Rate 75 PATIAL SYSTEMS INTEGRATOR documented in this encounter Plan of Treatment Upcoming Encounters Date Type Department Care Team (Late st Contact Info) Description 07/02/2024 10:00 AM CDT Appointment [facility] Cardiopulmonary Services [address] [place] [address] Deshawn Pearce MD Three [facility]. [address] [place] [address] 09/03/2024 2:40 PM CDT Office Visit [facility] Medical Group Multispecialty Care - [facility] [address] [facility] [address], [address] [place] [address] Mookie De La Torre MD 3 [facility], [address] [address] 09/29/2024 9:40 AM CDT Office Visit [facility] Medical Group Multispecialty Care - [facility] 3 [facility], [address] [facility] [address] Jairo Man MD 3 [place] [address] documented as of this encounter Visit Diagnoses Not on filedocumented in this encounter Additional Health Concerns Assessment Noted Time PHQ-9 Depression Total Score: 14 024 7:39 AM CDT documented as of this encounter Care Teams Shipping Coordinator Relationship Specialty Start Date End Date Clark Thomas MD [address] [place] [address] [address] [place] [address] PCP - General FAMILY PRACTICE 01/20/24 documented as of this encounter
--- OUTSIDE RECORDS SUMMARY | 2024-06-17 19:11 | XMS_ITS | Encounter Summary ---
Author Organization [facility] Address [address] [place] [address] Care Team Providers Care Biology Instructor Name Role Phone Clark Thomas MD Primary Care Provider [phone] Encounter Details Date Type Department Care Team (Late st Contact Info) Description 04/29/2024 MyChart Message Enc [facility] Medical Group Multispecialty Care - [facility] 3 [facility], [address] [place] [address] Jairo Man MD 3 [place] [address] MRI Social History Tobacco Use Types Packs/Day [...] Info) Description 07/02/2024 10:00 AM CDT Appointment [facility] Cardiopulmonary Services [address] [place] [address] Deshawn Pearce MD Three [facility]. [address] [place], [place] [address] 09/03/2024 2:40 PM CDT [facility] 3 [facility], [address] [place] [address] Mookie De La Torre MD 3 [facility], [address] [place] [address] 09/29/2024 9:40 AM CDT [facility] 3 [facility], [address] [place] [address] Jairo Man MD 3 [place] [address] documented as of this encounter Visit Diagnoses Not on filedocumented in this encounter Additional Health Concerns Assessment Noted Time PHQ-9 Depression Total Score: 14 024 7:39 AM CDT documented as of this encounter Care Teams Biology Instructor Relationship Specialty Start Date End Date Clark Thomas MD [address] [place] [address] [address] [place] [address] PCP - General FAMILY PRACTICE 01/20/24 documented as of this encounter
--- OUTSIDE RECORDS SUMMARY | 2024-06-17 19:11 | XMS_ITS | Patient Health Summary ---
Author Organization [facility] Address [address] [facility] [address] [facility] [place] [address] Care Team Providers Care Development Eng Name Role Phone Clark Thomas MD Primary Care Provider [phone] Note from [facility],non-owned Affiliates and Associated Physician Practices is amultiple site organization consisting of ambulatory clinics and hospital sitesin [place], [place], [place] and [place]. This disclosure is being madepursuant to the Care Everywhere program and may not contain all information available regarding this patient. Last updated 18.[facility] Allergies No known active allergies Medications * [...] propionate (FLONASE) 50 MCG/ACT nasal spray(Started 09/16/2016) [place] 1 [place] into each nostril 2 times daily 1 [...] midline shift. Dictated by Yeison Bashir MD (Licensed Mortician) I, Dr. BAM VASQUEZ have personally reviewed [...] midline shift. Dictated by Yeison Bashir MD (Licensed Mortician) I, Dr. BAM VASQUEZ have personally reviewed and interpreted this examination/study. This report was electronically signed by BAM VASQUEZ on 09/23/2020 2:[address] Lucrecia Adame MD CT ORDERABLES Care Teams Development Eng Relationship Specialty Start Date End Date Clark Thomas MD PCP - General Family Medicine 12/14/15
--- OUTSIDE RECORDS SUMMARY | 2024-06-17 19:11 | XMS_ITS | Encounter Summary ---
Author Organization [facility] Address [address] [place] [address] Care Team Providers Care Chief Steward/Stewardess Name Role Phone Clark Thomas MD Primary Care Provider [phone] Encounter Details Date Type Department Care Team (Late st Contact Info) Description 04/23/2024 Pre-Procedure Call [facility] [place] [address] Jairo Man MD [address] [place], [place] [address] Anesthesia Record Procedure Summary Procedure Name Responsible [...] Date: 04/29/24; Removal Time: 0910; Removal Person: BELLY DANCER; Removal Reason: End of Case 04/29/24 0743 [...] to current problem. Do you see a nursing program director? Who is it? No, but Dr Lepe is referring to rule out double vision as a cardiac problem (to go see kidney and heart and blood doc as well) NPO after midnight Arrival [address] home and stay ovenright Y BAR ATTENDANT Y BAR ATTENDANT Y BAR ATTENDANT documented in this encounter OR Notes * OR PreOp - Leigh Ann Sanchez CNP - 04/23/2024 12:32 PM CST Chart reviewed. Per phone interview, patient denies any SOB/CP with 2 FOS or recent changes in activity tolerance in past 6 months. Per phone interview, patient denies having a nursing program director. Previoustesting found in Cardiology and Care Everywhere and results copied. EKG 01/07/24 SR Rate 75 Echo 12/02/21 [place] is normal. Normal RV cavity size and function. LV cavity size is normal. Concentric LV remodeling and normal EF=67% but reduced strain. Normal Inferior vena cava. Normal aorta. No real change from 2009 Y BAR ATTENDANT documented in this encounter Plan of Treatment Upcoming Encounters Date Type Department Care Team (Late st Contact Info) Description 07/02/2024 10:00 AM CDT Appointment [facility] Cardiopulmonary Services [address] [place] [address] Deshawn [facility]ce MD [facility] [address] [place] [address] 09/03/2024 2:40 PM CDT Office Visit [facility] Medical Group Multispecialty Care - [facility] [address] [facility] [address], [address] [place] [address] Mookie De La Torre MD 3 [facility], [address] [place] [address] 09/29/2024 9:40 AM CDT Office Visit [facility] Medical Group Multispecialty Care - [facility] 3 [facility], [address] [place] [address] Jairo Man MD 3 [place] [address] documented as of this encounter Visit Diagnoses Not on filedocumented in this encounter Additional Health Concerns Assessment Noted Time PHQ-9 Depression Total Score: 14 024 7:39 AM CDT documented as of this encounter Care Teams Chief Steward/Stewardess Relationship Specialty Start Date End Date Clark Thomas MD [address] [place] [address] [address] [place] [address] PCP - General FAMILY PRACTICE 01/20/24 documented as of this encounter
--- OUTSIDE RECORDS SUMMARY | 2024-06-17 19:11 | XMS_ITS | Referral Summary ---
Author Organization [facility] Address [address] [facility] [place] [address] Care Team Providers Care Automotive Assembler Name Role Phone Clark Thomas MD Primary Care Provider [phone] Source Comments [facility],non-owned Affiliates and Associated Physician Practices is amultiple site organization consisting of ambulatory clinics and hospital sitesin [place], [place], [place] and [place]. This disclosure is being madepursuant to the Care Everywhere program and may not contain all information available regarding this patient. Last updated 18.[facility] Allergies No known active allergies Medications * [...] fluticasone propionate (FLONASE) 50 MCG/ACT nasal spray [place] 1 [place] into each nostril 2 times daily 1 [...] of Treatment Not on file Care Teams Automotive Assembler Relationship Specialty Start Date End Date Clark Thomas MD PCP - General Family Medicine 12/14/15
--- OUTSIDE RECORDS SUMMARY | 2024-06-17 19:11 | XMS_ITS | Clinical Summary ---
Author Organization [facility] Address [address], [address] [place] [address] Phone Care Team Providers Care Tie Presser Name Role Phone Clark Thomas MD Primary Care Provider [phone] Jairo Man MD Unavailable [phone] Gene Patel MD Unavailable [phone] Allergies No known active allergies Medications meloxicam (MOBIC) 15 MG Tablet Take 15 mg by mouth as needed. 01/05/2024 Active Atogepant 60 MG Tablet Take 60 mg by mouth daily. 01/20/2024 Active rizatriptan ([place]-WOODS MANAGER) 10 MG TABLET DISPERSIBLE Take 10 mg by mouth if needed. 02/25/2024 Active Active Problems No known active problems Encounters Date Type Department Care Team Description 05/13/2024 10:30 AM SERVICE GREETER Office Visit [facility] [address] [address] Gene Patel MD Migraine with aura and [...] Comments Blood Pressure 140/90 05/13/2024 10:26 AM SERVICE GREETER Pulse 83 05/13/2024 10:26 AM SERVICE GREETER Temperature 36.5 C (97.7 F) 05/13/2024 10:26 AM SERVICE GREETER Respiratory Rate 18 05/13/2024 10:26 AM SERVICE GREETER Oxygen Saturation 97% 05/13/2024 10:26 AM SERVICE GREETER Inhaled Oxygen Concentration - - Weight 113.9 kg (251 lb) 05/13/2024 10:26 AM SERVICE GREETER Height 186.7 cm (6' 1.5 ) 05/13/2024 10:26 AM CS T Body Mass Index 32.67 05/13/2024 10:26 AM SERVICE GREETER Plan of Treatment Health Maintenance Due Date [...] patient's age to complete this topic Insurance [facility] Care Teams Tie Presser Relationship Specialty Start Date End Date Clark Thomas MD [address] [address] PCP - General Family Medicine 04/24/24 Jairo Man MD [address] [place] [address] Neuromuscular Medicine 04/24/24 Gene Patel MD [address] [place] [phone] Consulting Physician Oncology 04/24/24
--- OUTSIDE RECORDS SUMMARY | 2024-06-17 19:11 | XMS_ITS | Continuity of Care Document ---
Author Organization [facility] Address [address] [place] [address] Phone Care Team Providers Care Licensed Audiologist Name Role Phone Moises Faustin MD Unavailable Unavailable Medications Medication Instructions Dosage Effective Dates (start - stop) Status Comments WEIGHT MANAGEMENT FIBER (unknown strength) one daily Not Available - Active Advance Directives Directive Yes / No Effective Date File Name No Information Encounters Encounter Description Practice Location Reason(s) For Visit Diagnoses Date Provider Providers Copied on Encounter [facility], [address], [place], [place], [id number] , tel:[phone] [facility] No Information 6 Roxie De Leon. [address], [id number] . tel: [phone] [facility], [address], [place], [place], [id number] , tel: [phone] [facility] HematocheziaHistory of colonic polyps 6 Roxie De Leon. [address], [id number] . tel: [phone] Referring Provider: Clark Thomas, [address] [facility], [place], [address]. tel:[phone] Family History Family Member Type Diagnosis Age At Onset Brother Problem (finding) ulcerative colitis Payers Payer name Insurance type Covered green party ID Authoriza tion(s) CMR GHP ASO CI [id number] Social History Type Description Quantity Date Captured [...]
--- OUTSIDE RECORDS SUMMARY | 2024-06-17 19:12 | XMS_ITS | Clinical Summary ---
Author Organization [facility] Address Formerly [facility] [place] [address] Care Team Providers Care International Freight Forwarder Name Role Phone Clark Thomas MD Primary [...] mg total) by mouth daily. Active rizatriptan (MAXALT-MANAGER MSW) 10 MG disintegrating tabletIndications:M igraine without aura, [...] Date Resolved Date Cerebrovascular accident (CV A) ([facility]) 12/01/2021 06/15/2024 Encounters Date Type Department Care Team Description 06/17/2024 Abstract [facility], [address] [place] [address] Russ Kunz MA 06/15/2024 9:15 AM DELICATE FABRICS PRESSER [facility] [address] [place] [address] Garfield Pearce MD Consult; Chest Pain; Blurred Vision 06/15/2024 Travel 06/01/2024 MyChart Message Enc [facility] Medical [facility] Multispecialty Care - [facility] [address] [facility], [address] [place] [address] Jairo Man MD Short term disability 05/16/2024 Scan [facility] SRVCS Scanned, [facility] 05/13/2024 Scan [facility] SRVCS Scanned, [facility] 05/11/2024 MyChart Message Enc [facility] Multispecialty Care - [facility] [address] [facility], [address] [place] [address] Jairo Man MD Testing question 05/07/2024 Scan [facility] SRVCS Scanned, [facility] 04/29/2024 7:34 AM DELICATE FABRICS PRESSER Anesthesia Event [facility] [place] [address] Jv Curtis MD Jarvis, Brittany L, DIGITAL PRODUCTION ARTIST 04/29/2024 6:19 AM DELICATE FABRICS PRESSER - 04/29/2024 10:16 AM DELICATE FABRICS PRESSER Hospital Encounter [facility] [place] [address] Jairo Man MD Discharge Disposition: Home or Self Care (Routine Discharge) 04/29/2024 MyChart Message Enc [facility] - [facility] [address] [facility], [address] [place] [address] Jairo Man MD MRI 04/29/2024 Telephone [facility] - [facility] [address] [facility], [address] [place] [address] Jairo Man MD Results 04/29/2024 Travel 04/23/2024 9:40 AM DELICATE FABRICS PRESSER Office Visit [facility] - [facility] [address] [facility], [address] [place] [phone] Jairo Man MD Follow Up 04/23/2024 Pre-Procedure Call [facility] Pre-Admission Testing ONE [facility] [place] [address] Jairo Man MD 04/23/2024 Travel 04/21/2024 Scan [facility] INFO SRVCS Scanned, [facility] 04/20/2024 MyChart Message Enc [facility] - [facility] [address] [facility], [address] [place] [address] Jairo Man MD Bloodwork 04/20/2024 MyChart Message Enc [facility] [address] [facility] [address] [facility], [address] [place] [address] Jairo Man MD Temporary disability form 04/16/2024 [facility]phone [facility] [address], [address] [place] [address] Jairo Man MD Prior Authorization (Qulipta) 03/30/2024 MyChart [facility] [address] [facility] [address], [address] [place] [address] Jairo Man MD Rizatriptan 03/25/2024 Telephone [facility] - [facility] [address], [address] [place] [address] Jairo Man MD Prior Authorization [...] Comments Blood Pressure 136/90 06/15/2024 9:11 AM DELICATE FABRICS PRESSER Pulse 75 06/15/2024 9:11 AM DELICATE FABRICS PRESSER Temperature 36.2 C (97.2 F) 04/29/2024 10:07 AM DELICATE FABRICS PRESSER Respiratory Rate 16 04/29/2024 10:07 AM DELICATE FABRICS PRESSER Oxygen Saturation 98% 04/29/2024 10:07 AM DELICATE FABRICS PRESSER Inhaled Oxygen Concentration - - Weight 112.5 kg (248 lb) 06/15/2024 9:11 AM DELICATE FABRICS PRESSER Height 185.4 cm (6' 1 ) 06/15/2024 9:11 AM DELICATE FABRICS PRESSER Body Mass Index 32.72 06/15/2024 9:11 AM DELICATE FABRICS PRESSER Plan of Treatment Upcoming Encounters Date Type Department Care Team (Late st Contact Info) Description 07/02/2024 10:00 AM CDT Appointment [facility] Cardiopulmonary Services [address] [place] [address] Garfield Pearce MD Three [facility]. [address] [place] [address] 09/03/2024 2:40 PM CDT [facility] - [address], [address] [place] [address] Mookie De La Torre MD 3 [facility], [facility] [address] [place] [address] 09/29/2024 9:40 AM CDT [facility] - [address], [address] [place] [address] Jairo Man MD [address] [place] [address] [place] [address] Health Maintenance Due Date Last Done Comments ASCVD Statin 1980 Annual Physical 1984 Hepatitis C 07/20/1999 DTaP, Tdap and Td Vaccines ( 1 - Tdap) 2000 Hepatitis B Vaccines (1 of 3 - 19+ 3-dose series) 2000 COVID-19 Vaccine (2023-2 5 season) 2023 05/02/2021 Influenza Adult (#1) 2024 PHQ-2 (Physician [place]) 04/22/2024 01/20/2024 HPV Vaccines Aged Out No [...] (NON MIDMARK ACQUIRED) Routine 06/15/2024 9:23 AM DELICATE FABRICS PRESSER Chest pain in adult MRI THOR SPINE WWO CON Routine 5 9:01 AM DELICATE FABRICS PRESSER MS (multiple sclerosis) ([facility]) MRI CERV SPINE WWO CON Routine 5 9:01 AM DELICATE FABRICS PRESSER MS (multiple sclerosis) ([facility]) POCT GLUCOSE - THIBODEAUX DOCKED DEVICE Routine 04/29/2024 6:59 AM DELICATE FABRICS PRESSER VITAMIN D, 25 OH Routine 04/01/2024 COMPREHENSIVE METABOLIC PANEL Routine 04/01/2024 LIPID PANEL Routine 04/01/2024 CBC, MANUAL DIFF Routine 04/01/2024 THYROXINE, FREE (FT4) Routine 04/01/2024 HEMOGLOBIN, GLYCOSYLATED Routine 04/01/2024 THYROID STIM HORMONE TSH Routine 04/01/2024 FREE T3 Routine 04/01/2024 from Last 3 Months Results * ELECTROCARDIOGRAM (06/15/2024 9:23 AM DELICATE FABRICS PRESSER) 06/15/2024 9:23 AM DELICATE FABRICS PRESSER Narrative [facility] - 06/15/2024 1:21 PM DELICATE FABRICS PRESSER [facility] Test Date: 2024-06-15 Pat Name: COLTEN CAVAZOS Department: 107 Room: Gender: Male Forming Department Supervisor: brie : 1980 Requested By: GARFIELD PEARCE Order Number: [id number] Reading MD: Garfield Pearce Measurements Intervals Warren Rate: 67 P: 26 TX: 153 QRS: -14 QRSD: 87 T: 11 QT: 361 QTc: 381 Interpretive Statements SINUS RHYTHM No prior ECG for comparison CATE FABRICS PRESSER Procedure Note Garfield Pearce MD - 06/15/2024 [facility] Test Date: 2024-06-15 Pat Name: COLTEN CAVAZOS Department: 107 Room: Gender: Male Forming Department Supervisor: brie : 1980 Requested By: GARFIELD PEARCE Order Number: [id number] Reading MD: Garfield Pearce Measurements Intervals Warren Rate: 67 P: 26 TX: 153 QRS: -14 QRSD: 87 T: 11 QT: 361 QTc: 381 Interpretive Statements SINUS RHYTHM No prior ECG for comparison CATE FABRICS PRESSER us Garfield Pearce MD PROCEDURES-ORDERABLE NO MARY KATE RGE Final Result [facility] * MRI THOR SPINE WWO CON (04/29/2024 9:01 AM DELICATE FABRICS PRESSER) Anatomical Region Laterality Modality Spine Magnetic Resonan ce 04/29/2024 11:1 2 AM DELICATE FABRICS PRESSER Impressions 04/29/2024 11:19 AM DELICATE FABRICS PRESSER IMPRESSION: 1. Normal appearance of the cervical and thoracic spinal cord. 2. Minimal cervical and thoracic spondylosis, as described above. Ordered By: JAIRO MAN Interpreted By: Juan Solis MD, 04/29/2024 11:12 AM Narrative 04/29/2024 11:19 AM DELICATE FABRICS PRESSER [address] [address] Examination: MRI THOR SPINE WWO CON, MRI [...] Procedure Note Juan Solis MD - 04/29/[address] [address] Examination: MRI THOR SPINE WWO CON, MRI [...] CERV SPINE WWO CON (04/29/2024 9:01 AM DELICATE FABRICS PRESSER) Anatomical Region Laterality Modality Spine Magnetic Resonan ce 04/29/2024 11:1 2 AM DELICATE FABRICS PRESSER Impressions 04/29/2024 11:19 AM DELICATE FABRICS PRESSER IMPRESSION: 1. Normal appearance of the cervical and thoracic spinal cord. 2. Minimal cervical and thoracic spondylosis, as described above. Ordered By: JAIRO MAN Interpreted By: Juan Solis MD, 04/29/2024 11:12 AM Narrative 04/29/2024 11:19 AM DELICATE FABRICS PRESSER [address] [address] Examination: MRI THOR SPINE WWO CON, MRI [...] Procedure Note Juan Solis MD - 04/29/2024 [address] [place], [place] [address] Examination: MRI THOR SPINE WWO CON, MRI [...] ult * POCT glucose (04/29/2024 6:59 AM DELICATE FABRICS PRESSER) GLUCOSE POC 86 70 - 99 mg/dL 04/29/2024 7:04 AM DELICATE FABRICS PRESSER [facility] 04/29/2024 6:59 AM DELICATE FABRICS PRESSER Result [facility] Jairo Man MD POCT ORDERABLES - DEVICE Final Result [facility] [address] [place] [address], * HEMOGLOBIN, GLYCOSYLATED (04/01/2024) Pathologist [facility] HGB A1C 6.3 % Default History Genericprovider LABORATORY Final Result * FREE T3 (04/01/2024) Pathologist [facility] FREE T3 3.5 Default History Genericprovider LABORATORY Final Result * COMPREHENSIVE METABOLIC PANEL (04/01/2024) Pathologist [facility] SODIUM S/P/B 142 GLUCOSE 117 mg/dL AST 14 BUN 9 CREATININE S/P/B 0.92 0.7 - 1.3 CALCIUM S/P/B 9.1 POTASSIUM S/P/B 4.2 CHLORIDE S/P/B 106 ALT 18 GFR ESTIMATE 107 Default History Genericprovider LABORATORY Final Result * LIPID PANEL (04/01/2024) Pathologist [facility] CHOLESTEROL 164 TRIGLYCERIDES 111 HDL 41 LDL (CALCULATED) 102 NON HDL CHOLESTEROL 123 Default History Genericprovider LABORATORY Final Result * CBC, MANUAL DIFF (04/01/2024) Pathologist [facility] WBC 6.6 HGB 16.3 HCT 49.3 PLT 193 Default History Genericprovider LABORATORY Final Result * THYROXINE, FREE (FT4) (04/01/2024) Pathologist [facility] FREE T4 1.3 Default History Genericprovider LABORATORY Final Result * THYROID STIM HORMONE TSH (04/01/2024) TSH 1.92 us Default History Genericprovider LABORATORY Final Result * VITAMIN D, 25 OH (04/01/2024) VITAMIN D 25 HYDROXY S/P/B 37 04/01/2024 us Default History Genericprovider LABORATORY Final Result from Last 3 Months Insurance [facility] Care Teams International Freight Forwarder Relationship Specialty Start Date End Date Clark Thomas MD [address] [place] [address] [address] [place] [address] PCP - General FAMILY PRACTICE 01/20/24
--- OUTSIDE RECORDS SUMMARY | 2024-06-17 19:12 | XMS_ITS | Encounter Summary ---
Author Organization [facility] Address [address] [place] [address] Care Team Providers Care Industrial Pipefitter Journeyman Name Role Phone Clark Thomas MD Primary Care Provider Encounter Details Date Type Department Care Team (Late st Contact Info) Description 06/17/2024 Abstract [facility] THREE [facility], [address] [place] [address] Russ Kunz MA Social History Tobacco Use [...] Info) Description 07/02/2024 10:00 AM CDT Appointment [facility] Cardiopulmonary Services [address] [place] [address] Deshawn Pearce MD Three [facility]. [address] [place] [address] 09/03/2024 2:40 PM CDT Office Visit [facility] Medical Group Multispecialty Care - [facility] 3 [facility], [address] [place] [address] Mookie De La Torre MD 3 [facility], [address] [place] [address] 09/29/2024 9:40 AM CDT Office Visit [facility] Group Multispecialty Care - [facility] 3 [facility], [address] [place] [address] Jairo Man MD 3 [place] [address] documented as of this encounter Procedures Procedure [...] Final Result * LIPID PANEL (04/01/2024) Pathologist [facility] CHOLESTEROL 164 TRIGLYCERIDES 111 HDL 41 LDL (CALCULATED) 102 NON HDL CHOLESTEROL 123 us Default History Genericprovider LABORATORY Final Result * CBC, MANUAL DIFF (04/01/2024) Pathologist [facility] WBC 6.6 HGB 16.3 HCT 49.3 PLT 193 us Default History Genericprovider LABORATORY Final Result * THYROXINE, FREE (FT4) (04/01/2024) Pathologist [facility] FREE T4 1.3 us Default History Genericprovider LABORATORY Final Result * HEMOGLOBIN, GLYCOSYLATED (04/01/2024) [facility] HGB A1C 6.3 % us Default History Genericprovider LABORATORY Final Result * THYROID STIM HORMONE TSH (04/01/2024) Pathologist [facility] TSH 1.92 us Default History Genericprovider LABORATORY Final Result * FREE T3 (04/01/2024) [facility] FREE T3 3.5 us Default History Genericprovider LABORATORY Final Result documented in this encounter Visit Diagnoses Not on filedocumented in this encounter Additional Health Concerns Assessment Noted Time PHQ-9 Depression Total Score: 14 024 7:39 AM CDT documented as of this encounter Care Teams Industrial Pipefitter Journeyman Relationship Specialty Start Date End Date Clark Thomas MD [address] [place] [address] 2 [place] [address] PCP - General FAMILY PRACTICE 01/20/24 documented as of this encounter
--- OUTSIDE RECORDS SUMMARY | 2024-06-17 19:12 | XMS_ITS | Encounter Summary ---
Author Organization [facility] Address [address] [place] [address] Care Team Providers Care Wet Process Assistant Head Miller Name Role Phone Clark Thomas MD Primary Care Provider [phone] Encounter Details Date Type Department Care Team (Latest Contact Info) Description 04/20/2024 Adlyt Message Enc [facility] Medical Group Multispecialty Care - [facility] [address] [facility], [address] [place] [address] Jairo Man MD 3 [place], [place] [id number] Temporary disability form Social History Tobacco Use [...] Info) Description 07/02/2024 10:00 AM CDT Appointment [facility] Cardiopulmonary Services [address] [place] [address] Deshwan Pearce MD Three [facility]. [address] [place], [place] [id number] 09/03/2024 2:40 PM CDT Office Visit [facility] Multispecialty Care - [facility] 3 [facility], [address] [place] [address] Mookie De La Torre MD 3 [facility], [address] [place] [address] 09/29/2024 9:40 AM CDT [facility] [address] [facility], [address] [place] [address] Jairo Man MD 3 [place] [address] documented as of this encounter Visit Diagnoses Not on filedocumented in this encounter Additional Health Concerns Assessment Noted Time PHQ-9 Depression Total Score: 14 024 7:39 AM CDT documented as of this encounter Care Teams Wet Process Assistant Head Miller Relationship Specialty Start Date End Date Clark Thomas MD [address] [place] [address] [address] [place] [address] PCP - General FAMILY PRACTICE 01/20/24 documented as of this encounter
--- OUTSIDE RECORDS SUMMARY | 2024-06-17 19:12 | XMS_ITS | Clinical Summary ---
Author Organization [facility] [place] [facility] Address [address] [place] [address] Care Team Providers Care Ratoprinter Name Role Phone Not Found, Stl Primary [...] on file Legal Sex Male 5:54 AM SOFTWARE DEVELOPMENT MANAGER Gender Identity Not on file Sexual Orientation [...] complete this topic Insurance xwife cell (Home) [id number] BLUE ACCESS/TRUE BLUE PPO Care Teams Ratoprinter Relationship Specialty Start Date End Date Not Found, Stl NO ADDRESS ON FILE PCP - General 11/23/09
--- OUTSIDE RECORDS SUMMARY | 2024-06-17 19:12 | XMS_ITS | Continuity of Care Document ---
Author Organization [facility] Address [address] [place] [address] [address] [place] [address] Phone Care Team Providers Care Senior Applications Analyst Name Role Phone Jean-Baptiste OD, Gene Unavailable Unavailable Procedures Procedure Date Office/outpatient Visit, New Advance Directives Directive Yes / No Effective Date File Name No Information Encounters Encounter Description Practice Location Reason(s) For Visit Diagnoses Date Provider Providers Copied on Encounter Office/outpat ient Visit, [facility], [address] [place] [address] [address], [place], [place], [id number], [place] tel:[phone] SEC [facility] No Information [phone] Jean-Baptiste OD Gene. [address] [facility] [address] , [address], [place], [address], [place]. tel:[phone] Family History Family Member Type Diagnosis Age At Onset No Information Payers Payer name Insurance type Covered green party ID Authoriza tion(s) No Information Social History [...]
--- OUTSIDE RECORDS SUMMARY | 2024-06-17 19:12 | XMS_ITS | CONTINUITY OF CARE DOCUMENT ---
Author Name jamiebrigidjustin thomas Address Unknown Organization [facility] Address [address] [facility] [address] [place] [address] Phone [phone] Care Team Providers Care Legal Analyst Name Role Phone Robin LOPEZ, Faviola Evans Unavailable CASE LEAVITT MD Unavailable [phone] CASE LEAVITT MD Unavailable [phone] INSURANCE PROVIDERS Payer name Policy type / Coverage type [place] red republican ID [employer] insurance [id number]
--- NOTE | 2024-06-17 19:23 | ED_ITS ---
HPI - SOB/Dyspnea General Chief Complaint: Shortness of Breath/Dyspnea Stated Complaint: shortness of breath stabbing pain in the R side cp Time Seen by Provider: 06/17/24 15:54 History of Present Illness HPI Narrative: 43-year-old male with a past medical history including hypertension, hyperlipidemia, diabetes, previous kidney stones. Patient previously had retrieval procedure to remove his kidney stones and has had kidney injuries in the past. Today presents with sudden-onset right-sided flank pain radiating towards his right abdomen. Causing him some shortness of breath and right-sided chest discomfort. Denies any fever chills. No urinary complaints such as dysuria, hematuria, inability urinate. Feels intense and comes in waves. Associated nausea without vomiting. No diarrhea constipation. No recent surgeries. Was otherwise in his normal state of health. Took Excedrin and aspirin at home which action made the pain worse. No history of peptic ulcer disease but tells me he does take large amounts of NSAIDs for his migraine headaches. Related Data Home Medications ?Medication ?Instructions ?Recorded ?Confirmed ?Last Taken ?Type cholecalciferol (vitamin D3) PO 06/04/23 04/01/24 Unknown History omega-3 fatty acids [Fish Oil] PO 06/04/23 04/01/24 Unknown History rizatriptan 10 mg tablet See Rx Instructions PO .COMPLEX 01/16/24 04/01/24 Unknown History atogepant 60 mg tablet (Qulipta) 60 mg PO DAILY 04/01/24 04/01/24 Unknown History azelastine 137 mcg (0.1 %) nasal 1 spray intranasal Q12H PRN 04/01/24 04/01/24 Unknown History spray allergy ubrogepant 100 mg tablet (Ubrelvy) 100 mg PO ONCE PRN migraine 04/01/24 04/01/24 Unknown History Allergies Allergy/AdvReac Type Severity Reaction Status Date / Time No Known Allergies Allergy Mild Verified 06/17/24 15:27 Review of Systems 2 Review of Systems: As reviewed above in HPI [facility] Past Medical History Medical History Abnormal fasting glucose (10/13/20) glucose 135 and hemoglobin A1c 6.0 on 10/13/2020. Glucose 137 with hemoglobin A1c 6.8 on 12/01/2021. Fasting glucose 117 with hemoglobin A1c 6.3 and GFR 107 on 04/01/2024. Controlled diabetes mellitus without complication, without long-term current use of insulin (~12/01/21) glucose 135 and hemoglobin A1c 6.0 on 10/13/2020. Glucose 137 with hemoglobin A1c 6.8 on 12/01/2021. Fasting glucose 117 with hemoglobin A1c 6.3 and GFR 107 on 04/01/2024. Chronic depression Brain fog Chronic neck pain Influenza-like illness (~06/20/23) COVID-19 (~02/2023) Acute bronchitis Migraine without aura and without status migrainosus, not intractable Neurologist believes that the intermittent diplopia represents a brainstem aura. Normal MRI, MRA, MRV of the brain on 03/04/2024. Brain stem stroke syndrome (~12/01/21) a possible MRI negative brainstem stroke evaluated at [facility] 12/01/2021 Binocular vision disorder with diplopia (~12/01/21) intermittent binocular diplopia starting 12/01/2021 Hemorrhoids Blurred vision (12/01/21) Infected dental caries left upper jaw Seasonal allergic rhinitis Body mass index [BMI] 33.0-33.9, adult Obesity (BMI 30.0-34.9) Paresthesias Encounter for prostate cancer screening Wellness examination Mixed hyperlipidemia (10/13/20) total cholesterol 211, HDL 49, triglycerides 159 and LDL 133 on 10/13/2020. Total cholesterol 188, triglycerides 138, HDL 42 and LDL 118 on 12/01/2021. Cholesterol 164, HDL 41, triglycerides 111, LDL 102 on 04/01/2024. Vitamin D deficiency, unspecified (10/13/20) vitamin-D low at 16 on 10/13/2020. Level normal at 37 on 04/01/2024. BMI 35.0-35.9,adult Hypersomnia (~01/02/21) Home sleep study 03/28/2021 with AHI of 3.4 with evidence of restless leg syndrome. Consider in-lab sleep study Urinary tract infection Cellulitis Exposure to COVID-19 virus Acute non-recurrent maxillary sinusitis Renal stone (10/13/20) Vitamin B12 deficiency anemia B12 slightly low at 341 on 10/13/2020. Level normal at 661 with hemoglobin 16.3 on 04/01/2024. Polyp of colon Protein-losing nephropathy 2+ protein on urinalysis 04/01/2024. Migraine without aura and responsive to treatment CT of the brain on 12/01/2021 was normal. MRI of the brain was normal 12/03/2021. the patient is having brainstem aura symptoms without migraine. Family History Family History Father Diabetes mellitus Patient's father is in good health Mother Diabetes mellitus Patient's mother is in good health Grandparent Family history of cardiovascular disease Social History Social History Smoking status: Never smoker Alcohol intake: never Substance use: never Substance use type: does not use Lack of Transportation: No Lack of Food: Never True Current Housing: I Have Housing Concerned About Future Housing: No Difficulty Paying Gas/Electric Bills: No Difficulty Paying for Meds: No Currently Unemployed: No Education: Associate Degree Difficulty w/ Childcare or Family Care: No Exam 2 Narrative: GENERAL: Uncomfortable appearing, tachypneic but not in any acute distress, answering all my questions appropriately. HEAD: [Normocephalic, atraumatic.] EYES: [PERRLA and EOMI.] ENT: Nares clear, no rhinorrhea or epistaxis. Mucous membranes moist. NECK: Supple. CHEST: [Clear to auscultation. No respiratory distress.] HEART: [Regular rate and rhythm]. No murmur heard. [Normal peripheral pulses.] ABDOMEN: [Soft, nondistended], tender in the right flank without any overlying skin changes, no guarding. No signs of peritonitis. EXTREMITIES: Normal range of motion. [No edema.] SKIN: Warm, dry, no rash. NEURO: [No focal deficits]. Alert and oriented [x3.] PSYCH: [Normal mood and affect.] Course Vital Signs Vital signs: Vital Signs Temperature 36.6 C 06/17/24 15:32 Pulse Rate 78 06/17/24 15:32 Respiratory Rate 24 H 06/17/24 15:32 Blood Pressure 149/103 H 06/17/24 15:32 Pulse Oximetry 100 06/17/24 15:32 Temperature 36.6 C 06/17/24 15:32 Pulse Rate 74 06/17/24 18:35 Respiratory Rate 24 H 06/17/24 18:35 Blood Pressure 150/91 H 06/17/24 18:35 Pulse Oximetry 100 06/17/24 18:35 MDM - SOB/Dyspnea MDM Narrative Medical decision making narrative: 43-year-old male with a history kidney stones, hypertension, hyperlipidemia and diabetes presenting to the ER for right flank pain radiating towards his abdomen. Feels dissimilar from his previous kidney stone pain. Pain comes in waves, localized to his right flank that radiates towards his abdomen. No injury or trauma. No overlying skin changes. He is tender in that area. Tachypneic but not tachycardic, slightly hypertensive no fever, hypoxia. Considerations presently are for kidney stone, obstructing kidney stone, pyelonephritis, cholecystitis, gallbladder disease, pancreatitis or appendicitis less likely. Low suspicion ACS or thromboembolic event such as a PE. Does meet low Wells criteria for this. Workup ordered including serial troponin, EKG, chest x-ray, CBC, CMP, lipase, viral swabs, he was treated with fluids, Zofran Dilaudid and a CT scan of the abdomen and pelvis with IV contrast was ordered for further delineation. Patient was re-evaluated after medications. Lab Data 06/17/24 15:39 06/17/24 15:39 Labs: Lab Results 06/17/24 06/17/24 06/17/24 Range/Units 15:39 18:36 18:42 WBC 7.3 (4.5-10.0) K/mm3 RBC 5.44 (4.6-6.20) M/mm3 Hgb 15.9 (14.0-18.0) g/dL Hct 48.1 (42.0-52.0) % MCV 88.4 (80-100) fl MCH 29.2 (26-34) pg MCHC 33.1 (32-36) g/dl RDW 12.9 (11.5-14.5) % Plt Count 188 (150-375) k/mm3 MPV 10.0 (7.4-10.4) fl Immature Gran % (Auto) 0.3 (0-0.5) % Neut % (Auto) 52.3 (45.5-73.1) % Lymph % (Auto) 37.5 (18.3-44.2) % [place] % (Auto) 8.1 (2.6-8.5) % Eos % (Auto) 1.4 (0-4.4) % Baso % (Auto) 0.4 (0.2-1.2) % Lymph # (Auto) 2.74 (0.9-3.2) K/mm3 [place] # (Auto) 0.6 (0.1-0.6) K/mm3 Eos # (Auto) 0.1 (0-0.3) K/mm3 Baso # (Auto) 0.0 (0.0-0.1) K/mm3 Abs Immat Gran (auto) 0.02 (0.00-0.031) K/mm3 Absolute Neuts (auto) 3.8 (1.3-6.7) K/mm3 Absolute Nucleated RBC 0.000 (0.0-0.012) K/mm3 Nucleated RBC % 0.0 (0.0-0.2) % PT 12.6 (11.1-14.7) Seconds INR 0.9 APTT 36.6 (22.3-36.8) Seconds Sodium 140 (137-145) mmol/L Potassium 3.5 (3.4-5.0) mmol/L Chloride 105 (98-107) mmol/L Carbon Dioxide 22 (22-30) mmol/L Anion Gap 13 H (4-12) mmol/L BUN 8 L D (9-20) mg/dL Creatinine 0.91 (0.7-1.3) mg/dL Estim Creat Clear Calc 123 ml/min Estimated GFR > 60 (59 - ) Glucose 118 H (65-110) mg/dL Calcium 9.3 (8.4-10.2) mg/dL Total Bilirubin 1.2 (0.2-1.3) mg/dL AST 25 (17-59) U/L ALT 27 (6-50) U/L Alkaline Phosphatase 54 (38-126) U/L Troponin I < 0.012 < 0.012 (0.000-0.034) ng/mL Total Protein 7.0 (6.3-8.2) g/dL Albumin 4.2 (3.5-5.1) g/dL Lipase 83 (23-300) U/L Urine Color Yellow (Yellow) Urine Appearance Clear (Clear) Urine pH 8.0 (5.0-9.0) Ur Specific [place] 1.025 (1.001-1.035) Urine Protein 2+ H (Negative) mg/dL Urine Glucose (UA) Negative (Negative) mg/dL Urine Ketones 1+ H (Negative) mg/dL Ur Blood (Man) Negative (Negative) Urine Nitrate Negative (Negative) Urine Bilirubin Negative (Negative) Urine Urobilinogen 1.0 (<2.0) mg/dL Leukocyte Esterase Rfl Negative (Negative) VIGNESH/UL Urine RBC 0-2 (0-2) /hpf Urine WBC 0-5 (0-3) /hpf Ur Squamous Epith Cells None seen (Few) /hpf Urine Bacteria None seen /hpf Urine Casts 0-2 Influenza A (RT-PCR) Influenza B (RT-PCR) RSV (RT-PCR) SARS-CoV-2 RNA (RT-PCR) 06/17/24 Range/Units 19:13 WBC (4.5-10.0) K/mm3 RBC (4.6-6.20) M/mm3 Hgb (14.0-18.0) g/dL Hct (42.0-52.0) % MCV (80-100) fl MCH (26-34) pg MCHC (32-36) g/dl RDW (11.5-14.5) % Plt Count (150-375) k/mm3 MPV (7.4-10.4) fl Immature Gran % (Auto) (0-0.5) % Neut % (Auto) (45.5-73.1) % Lymph % (Auto) (18.3-44.2) % [place] % (Auto) (2.6-8.5) % Eos % (Auto) (0-4.4) % Baso % (Auto) (0.2-1.2) % Lymph # (Auto) (0.9-3.2) K/mm3 [place] # (Auto) (0.1-0.6) K/mm3 Eos # (Auto) (0-0.3) K/mm3 Baso # (Auto) (0.0-0.1) K/mm3 Abs Immat Gran (auto) (0.00-0.031) K/mm3 Absolute Neuts (auto) (1.3-6.7) K/mm3 Absolute Nucleated RBC (0.0-0.012) K/mm3 Nucleated RBC % (0.0-0.2) % PT (11.1-14.7) Seconds INR APTT (22.3-36.8) Seconds Sodium (137-145) mmol/L Potassium (3.4-5.0) mmol/L Chloride (98-107) mmol/L Carbon Dioxide (22-30) mmol/L Anion Gap (4-12) mmol/L BUN (9-20) mg/dL Creatinine (0.7-1.3) mg/dL Estim Creat Clear Calc ml/min Estimated GFR (59 - ) Glucose (65-110) mg/dL Calcium (8.4-10.2) mg/dL Total Bilirubin (0.2-1.3) mg/dL AST (17-59) U/L ALT (6-50) U/L Alkaline Phosphatase (38-126) U/L Troponin I (0.000-0.034) ng/mL Total Protein (6.3-8.2) g/dL Albumin (3.5-5.1) g/dL Lipase (23-300) U/L Urine Color (Yellow) Urine Appearance (Clear) Urine pH (5.0-9.0) Ur Specific [place] (1.001-1.035) Urine Protein (Negative) mg/dL Urine Glucose (UA) (Negative) mg/dL Urine Ketones (Negative) mg/dL Ur Blood (Man) (Negative) Urine Nitrate (Negative) Urine Bilirubin (Negative) Urine Urobilinogen (<2.0) mg/dL Leukocyte Esterase Rfl (Negative) VIGNESH/UL Urine RBC (0-2) /hpf Urine WBC (0-3) /hpf Ur Squamous Epith Cells (Few) /hpf Urine Bacteria /hpf Urine Casts Influenza A (RT-PCR) Pending Influenza B (RT-PCR) Pending RSV (RT-PCR) Pending SARS-CoV-2 RNA (RT-PCR) Pending Discharge Plan Discharge Patient Language: Kazakh Prescriptions: No Action omega-3 fatty acids [Fish Oil] PO cholecalciferol (vitamin D3) PO Qulipta 60 mg tablet 60 mg PO DAILY Patient Comments: prescribed by Neurology Ubrelvy 100 mg tablet 100 mg PO ONCE PRN (Reason: migraine) Rx Instructions: as a single dose; may repeat once in >=2 hours after first dose if needed escitalopram oxalate [Lexapro] 10 mg tablet 10 mg PO DAILY Qty: 30 11RF azelastine 137 mcg (0.1 %) spray,non-aerosol 1 spray intranasal Q12H PRN (Reason: allergy) Rx Instructions: administer into each nostril rizatriptan 10 mg tablet See Rx Instructions PO .COMPLEX Rx Instructions: per neuro alprazolam [Xanax] 0.25 mg tablet 0.25 mg PO TID PRN (Reason: anxiety) Qty: 90 5RF Rx Instructions: take 1/2 or 1 tablet t.i.d. p.r.n. severe anxiety only hydrocortisone acetate [Anusol-HC] 25 mg suppository 25 mg RECTAL BID PRN (Reason: hemorrhoids) Qty: 24 5RF Ozempic 0.25 mg or 0.5 mg (2 mg/3 mL) pen injector 0.25 mg subcut WEEKLY Qty: 3 11RF Rx Instructions: for 4 weeks Follow-up/Referrals: Clark Thomas MD [Primary Care Provider] -
[2024-06-17] MEDS: ONDANSETRON INJ 4 MG/2 ML VIAL IV PUSH (19:28)
[2024-06-17] MEDS: LACTATED RINGERS 1,000 ML 999 ML IV CONT (19:29)
[2024-06-17] MEDS: HYDROmorphone HCL INJ (*CRX) 1 MG/ML SYR IV PUSH (19:29)
[2024-06-17 19:33] VITALS: BP 134/83; PULSE 75; RESP 12; O2SAT 96
[2024-06-17 20:56] VITALS: BP 150/88; PULSE 74; RESP 16; O2SAT 99
[2024-06-17] MEDS: TAMSULOSIN HCL 0.4 MG CAPSULE PO (21:12)
[2024-06-17] MEDS: KETOROLAC 15 MG/ML VIAL (*BKC) IV PUSH (21:12)
[2024-06-17] MEDS: METOCLOPRAMIDE HCL INJ 10 MG/2 ML VIAL IV PUSH (21:12)
[2024-06-17] MEDS: fentaNYL CITRATE INJ (*CRX) 100 MCG/2 ML VIAL IV PUSH (21:12)
[2024-06-17 21:41] LABS: Influenza A QL RT-PCR Negative (Negative); Influenza B QL RT-PCR Negative (Negative); RSV RNA, RT-PCR Negative (Negative); SARS-CoV-2 RNA PCR Negative (Negative)
[2024-06-17 22:54] VITALS: BP 156/92; PULSE 78; RESP 14; O2SAT 100
--- NOTE | 2024-06-17 23:26 | PM.IMHP ---
H&P: HPI History of Present Illness Date/Time: 06/17/24 23:26 Chief Complaint: 1. Right flank pain Narrative: Colten Cavazos is a 43 yo M with a mHx significant for obesity, migraines, recurrent nephrolithiasis Since his last episode of nephrolithiasis more than 5 year ago, he has remained stable until a few hours [employer] developed a sudden new-onset right flank pain; it was progressive; pain radiated to the pelvic region; rated 10 in intensity, with no known modifying factors was associated with nausea, malaise, NBNB emesis, rigors, chills and restriction of his ADLs. His last BM was the day [employer] and was of normal consistency and void of blood. He denies hematuria, dizziness, LOC, skin/joint changes. Currently on disability due to debilitating visual migraines, he does not smoke/chew tobacco, drink alcohol or consume recreational/illicit drugs; his family hx is significant for nephrolithiasis in his mother and brother. Work-up findings: VS: BP 142/82; HR 74; RR 14; T 97.5; 97% on AA At the bedside, he is alert, in mild-moderate painful distress; +R/CVA tenderness CTAP: 3 mm distal right ureteral stone causing mild obstructive uropathy. CXR: Unremarkable UA: Unremarkable Influenza A/B, RSV, COVID-19: Negative Troponin: 0.012 >> 0.012 Colten Cavazos will be admitted, evaluated and managed for Review of Systems Review of Systems: All systems reviewed & are unremarkable except as noted in HPI and below [facility] Past Medical History Medical History Abnormal fasting glucose (10/13/20) glucose 135 and hemoglobin A1c 6.0 on 10/13/2020. Glucose 137 with hemoglobin A1c 6.8 on 12/01/2021. Fasting glucose 117 with hemoglobin A1c 6.3 and GFR 107 on 04/01/2024. Controlled diabetes mellitus without complication, without long-term current use of insulin (~12/01/21) glucose 135 and hemoglobin A1c 6.0 on 10/13/2020. Glucose 137 with hemoglobin A1c 6.8 on 12/01/2021. Fasting glucose 117 with hemoglobin A1c 6.3 and GFR 107 on 04/01/2024. Chronic depression Brain fog Chronic neck pain Influenza-like illness (~06/20/23) COVID-19 (~02/2023) Acute bronchitis Migraine without aura and without status migrainosus, not intractable Neurologist believes that the intermittent diplopia represents a brainstem aura. Normal MRI, MRA, MRV of the brain on 03/04/2024. Brain stem stroke syndrome (~12/01/21) a possible MRI negative brainstem stroke evaluated at [facility] 12/01/2021 Binocular vision disorder with diplopia (~12/01/21) intermittent binocular diplopia starting 12/01/2021 Hemorrhoids Blurred vision (12/01/21) Infected dental caries left upper jaw Seasonal allergic rhinitis Body mass index [BMI] 33.0-33.9, adult Obesity (BMI 30.0-34.9) Paresthesias Encounter for prostate cancer screening Wellness examination Mixed hyperlipidemia (10/13/20) total cholesterol 211, HDL 49, triglycerides 159 and LDL 133 on 10/13/2020. Total cholesterol 188, triglycerides 138, HDL 42 and LDL 118 on 12/01/2021. Cholesterol 164, HDL 41, triglycerides 111, LDL 102 on 04/01/2024. Vitamin D deficiency, unspecified (10/13/20) vitamin-D low at 16 on 10/13/2020. Level normal at 37 on 04/01/2024. BMI 35.0-35.9,adult Hypersomnia (~01/02/21) Home sleep study 03/28/2021 with AHI of 3.4 with evidence of restless leg syndrome. Consider in-lab sleep study Urinary tract infection Cellulitis Exposure to COVID-19 virus Acute non-recurrent maxillary sinusitis Renal stone (10/13/20) Vitamin B12 deficiency anemia B12 slightly low at 341 on 10/13/2020. Level normal at 661 with hemoglobin 16.3 on 04/01/2024. Polyp of colon Protein-losing nephropathy 2+ protein on urinalysis 04/01/2024. Migraine without aura and responsive to treatment CT of the brain on 12/01/2021 was normal. MRI of the brain was normal 12/03/2021. the patient is having brainstem aura symptoms without migraine. Family History Family History Father Diabetes mellitus Patient's father is in good health Mother Diabetes mellitus Patient's mother is in good health Grandparent Family history of cardiovascular disease Social History Social History Smoking status: Never smoker Alcohol intake: never Substance use: never Substance use type: does not use Lack of Transportation: No Lack of Food: Never True Current Housing: I Have Housing Concerned About Future Housing: No Difficulty Paying Gas/Electric Bills: No Difficulty Paying for Meds: No Currently Unemployed: No Education: Associate Degree Difficulty w/ Childcare or Family Care: No Meds Home Medications and Allergies Home Medications ?Medication ?Instructions ?Recorded ?Confirmed ?Type alprazolam 0.25 mg tablet (Xanax) 0.25 mg PO TID PRN anxiety #90 tabs 02/06/22 04/01/24 Rx hydrocortisone acetate 25 mg 25 mg RECTAL BID PRN hemorrhoids 05/07/22 04/01/24 Rx rectal suppository (Anusol-HC) #24 ea cholecalciferol (vitamin D3) PO 06/04/23 04/01/24 History omega-3 fatty acids [Fish Oil] PO 06/04/23 04/01/24 History rizatriptan 10 mg tablet See Rx Instructions PO .COMPLEX 01/16/24 04/01/24 History atogepant 60 mg tablet (Qulipta) 60 mg PO DAILY 04/01/24 04/01/24 History azelastine 137 mcg (0.1 %) nasal 1 spray intranasal Q12H PRN 04/01/24 04/01/24 History spray allergy escitalopram oxalate 10 mg tablet 10 mg PO DAILY #30 tabs 04/01/24 04/01/24 Rx (Lexapro) ubrogepant 100 mg tablet (Ubrelvy) 100 mg PO ONCE PRN migraine 04/01/24 04/01/24 History semaglutide 0.25 mg or 0.5 mg (2 0.25 mg (0.368 mL) subcut WEEKLY 05/01/24 Rx mg/3 mL) subcutaneous pen injector #3 mL (Ozempic) Allergies Allergy/AdvReac Type Severity Reaction Status Date / Time No Known Allergies Allergy Mild Verified 06/17/24 19:34 Vital Signs Vital Signs - 24 hr 06/17/24 15:32 06/17/24 18:35 06/17/24 19:33 Temperature 97.8 F Pulse Rate 78 74 75 Respiratory Rate 24 H 24 H 12 Blood Pressure 149/103 H 150/91 H 134/83 Pulse Oximetry 100 100 96 06/17/24 20:56 06/17/24 22:54 Temperature Pulse Rate 74 78 Respiratory Rate 16 14 Blood Pressure 150/88 H 156/92 H Pulse Oximetry 99 100 Exam Const: General: in distress HENMT: Ears: TM's normal bilaterally Face/Nose/Sinus: Normal nares present Mouth: Yes moist mucous membranes Eyes: General: appearance normal, both eyes and all related structures Pupils: Equal, round and reactive pupils present Neck: Neck: supple Resp: Effort & Inspection: normal respiratory effort Auscultation: clear to auscultation bilaterally Cardio: Rate: regular rate Rhythm: regular rhythm GI: GI Palp: Yes Tenderness to palpation present (GI) (Right flank) Auscultation: normal bowel sounds Skin: General skin exam: normal color Wounds: no wounds Neuro: General: gait normal Motor exam (neuro): 5/5 motor strength present throughout, Normal motor muscle tone present throughout and Abnormal motor strength present Extrem: General: normal to inspection Psych: Mental Status: mental status grossly normal H&P: Results Labs Labs: Short CBC 06/17/24 Range/Units 15:39 WBC 7.3 (4.5-10.0) K/mm3 Hgb 15.9 (14.0-18.0) g/dL Hct 48.1 (42.0-52.0) % Plt Count 188 (150-375) k/mm3 BMP 06/17/24 15:39 Sodium 140 Potassium 3.5 Chloride 105 Carbon Dioxide 22 BUN 8 L D Creatinine 0.91 Glucose 118 H Calcium 9.3 Cardiac Enzymes 06/17/24 06/17/24 Range/Units 15:39 18:42 Troponin I < 0.012 < 0.012 (0.000-0.034) ng/mL Liver Function 06/17/24 Range/Units 15:39 Total Bilirubin 1.2 (0.2-1.3) mg/dL AST 25 (17-59) U/L ALT 27 (6-50) U/L Alkaline Phosphatase 54 (38-126) U/L Albumin 4.2 (3.5-5.1) g/dL Urine 06/17/24 Range/Units 18:36 Urine Color Yellow (Yellow) Urine Appearance Clear (Clear) Urine pH 8.0 (5.0-9.0) Ur Specific [place] 1.025 (1.001-1.035) Urine Protein 2+ H (Negative) mg/dL Urine Glucose (UA) Negative (Negative) mg/dL Assessment and Plan Assessment and plan (1) Obesity (BMI 30.0-34.9): Code(s): E66.9 - Obesity, unspecified Status: Acute (2) Blurred vision: Onset Date: 12/01/21 Code(s): H53.8 - Other visual disturbances Status: Acute (3) Right distal ureteral calculus: Code(s): N20.1 - Calculus of ureter Status: Acute Plan Acute and principal conditions 1. Right renal colic; 3 mm distal right ureteral stone causing mild obstructive uropathy. Rx: A. NPO; IVF; Analgesia; Anti-emetics B. Urology consulted C. Monitor renal function Chronic and stable conditions 1. Obesity, BMI 33 2. Migraines. 3. Recurrent depression with Anxiety. Miscellaneous care. 1. Code status. Full 2. Nutritoin. NPO 3. VTE prophylaxis. SCDs; [facility] Hospitalist [facility] Advance Care Plan I have confirmed that the patient's Advanced Care Plan is present, code status is documented, or surrogate decision maker is listed in patient medical record.: Yes Medication Reconciliation I have utilized all available resources to obtain, update and review the patients current medications (includes all prescriptions, OTC, herbals, cannabis, and nutritional supplements).: Yes The patient is not eligible for med reconciliation; the patient is in a emergent medical situation where delaying treatment would jeopardize the patients health.: Yes
[2024-06-17 23:50] VITALS: BMI 33.0
[2024-06-18] VITALS (12 sets, daily range): BP systolic 110–160; BP diastolic 67–100; PULSE 69–104; RESP 12–20; TEMP 36.1–36.6; O2SAT 95–100
[2024-06-18] MEDS: SODIUM CHLORIDE 0.9% IV 1,000 ML 100 ML IV CONT ×2 (00:50→11:11)
--- NOTE | 2024-06-18 06:45 | WPDURCON ---
Assessment and Plan Assessment and plan (1) Right ureteral stone: Code(s): N20.1 - Calculus of ureter Status: Acute Assessment and Plan: Will repeat CT scan to see if his stone is passed If stone still present will plan cystoscopy with right ureteroscopy and stone extraction Urology Consult Note HPI Date Seen: 06/18/24 Requesting Physician: Juan Morin MD Primary Care Provider: Clark Thomas MD Consult Narrative Narrative: Colten Cavazos is a 43 year old male who has a history of urolithiasis requiring endoscopic procedures in the past. He presents to the ER with right flank pain without nausea vomiting fever chills or gross hematuria. CT imaging demonstrates a partially obstructing 3 mm right distal ureteral calculus. Overnight his pain has resolved but he has not produced the stone. His urine has not been consistently strained so it is unclear whether he has passed the small stone or not. Review of Systems Review of Systems: All systems reviewed & are unremarkable except as noted in HPI and below PMFSH Past Medical History Medical History Abnormal fasting glucose (10/13/20) glucose 135 and hemoglobin A1c 6.0 on 10/13/2020. Glucose 137 with hemoglobin A1c 6.8 on 12/01/2021. Fasting glucose 117 with hemoglobin A1c 6.3 and GFR 107 on 04/01/2024. Controlled diabetes mellitus without complication, without long-term current use of insulin (~12/01/21) glucose 135 and hemoglobin A1c 6.0 on 10/13/2020. Glucose 137 with hemoglobin A1c 6.8 on 12/01/2021. Fasting glucose 117 with hemoglobin A1c 6.3 and GFR 107 on 04/01/2024. Chronic depression Brain fog Chronic neck pain Influenza-like illness (~06/20/23) COVID-19 (~02/2023) Acute bronchitis Migraine without aura and without status migrainosus, not intractable Neurologist believes that the intermittent diplopia represents a brainstem aura. Normal MRI, MRA, MRV of the brain on 03/04/2024. Brain stem stroke syndrome (~12/01/21) a possible MRI negative brainstem stroke evaluated at [facility] 12/01/2021 Binocular vision disorder with diplopia (~12/01/21) intermittent binocular diplopia starting 12/01/2021 Hemorrhoids Blurred vision (12/01/21) Infected dental caries left upper jaw Seasonal allergic rhinitis Body mass index [BMI] 33.0-33.9, adult Obesity (BMI 30.0-34.9) Paresthesias Encounter for prostate cancer screening Wellness examination Mixed hyperlipidemia (10/13/20) total cholesterol 211, HDL 49, triglycerides 159 and LDL 133 on 10/13/2020. Total cholesterol 188, triglycerides 138, HDL 42 and LDL 118 on 12/01/2021. Cholesterol 164, HDL 41, triglycerides 111, LDL 102 on 04/01/2024. Vitamin D deficiency, unspecified (10/13/20) vitamin-D low at 16 on 10/13/2020. Level normal at 37 on 04/01/2024. BMI 35.0-35.9,adult Hypersomnia (~01/02/21) Home sleep study 03/28/2021 with AHI of 3.4 with evidence of restless leg syndrome. Consider in-lab sleep study Urinary tract infection Cellulitis Exposure to COVID-19 virus Acute non-recurrent maxillary sinusitis Renal stone (10/13/20) Vitamin B12 deficiency anemia B12 slightly low at 341 on 10/13/2020. Level normal at 661 with hemoglobin 16.3 on 04/01/2024. Polyp of colon Protein-losing nephropathy 2+ protein on urinalysis 04/01/2024. Migraine without aura and responsive to treatment CT of the brain on 12/01/2021 was normal. MRI of the brain was normal 12/03/2021. the patient is having brainstem aura symptoms without migraine. Family History Family History Father Diabetes mellitus Patient's father is in good health Mother Diabetes mellitus Patient's mother is in good health Grandparent Family history of cardiovascular disease Social History Social History Smoking status: Never smoker Second hand tobacco smoke exposure: No Alcohol intake: never Substance use: never Substance use type: does not use Do You Feel Safe in your Home?: Yes Lack of Transportation: No Lack of Food: Never True Current Housing: I Have Housing Concerned About Future Housing: No Difficulty Paying Gas/Electric Bills: No Difficulty Paying for Meds: No Currently Unemployed: No Education: Associate Degree Difficulty w/ Childcare or Family Care: No Spiritual care concerns: No Meds Home Medications and Allergies Home Medications ?Medication ?Instructions ?Recorded ?Confirmed ?Type alprazolam 0.25 mg tablet (Xanax) 0.25 mg PO TID PRN anxiety #90 tabs 02/06/22 06/18/24 Rx hydrocortisone acetate 25 mg 25 mg RECTAL BID PRN hemorrhoids 05/07/22 06/18/24 Rx rectal suppository (Anusol-HC) #24 ea cholecalciferol (vitamin D3) 1,000 unit PO DAILY 06/04/23 06/18/24 History omega-3 fatty acids 1 cap PO DAILY 06/04/23 06/18/24 History rizatriptan 10 mg tablet See Rx Instructions PO .COMPLEX 01/16/24 06/18/24 History atogepant 60 mg tablet (Qulipta) 60 mg PO DAILY 04/01/24 06/18/24 History azelastine 137 mcg (0.1 %) nasal 1 spray intranasal Q12H PRN 04/01/24 06/18/24 History spray allergy semaglutide 0.25 mg or 0.5 mg (2 0.25 mg (0.368 mL) subcut WEEKLY 05/01/24 06/18/24 Rx mg/3 mL) subcutaneous pen injector #3 mL (Ozempic) buspirone 15 mg tablet 15 mg PO BID 06/18/24 06/18/24 History meloxicam 15 mg tablet 15 mg PO DAILY PRN back pain 06/18/24 06/18/24 History sertraline 100 mg tablet 100 mg PO DAILY 06/18/24 06/18/24 History Allergies Allergy/AdvReac Type Severity Reaction Status Date / Time No Known Allergies Allergy Mild Verified 06/17/24 19:34 Vital Signs Vital Signs - 24 hr 06/17/24 15:32 06/17/24 18:35 06/17/24 19:33 Temperature 97.8 F Pulse Rate 78 74 75 Respiratory Rate 24 H 24 H 12 Blood Pressure 149/103 H 150/91 H 134/83 Pulse Oximetry 100 100 96 Oxygen Delivery 06/17/24 20:56 06/17/24 22:54 06/18/24 00:00 Temperature 97.5 F L Pulse Rate 74 78 74 Respiratory Rate 16 14 14 Blood Pressure 150/88 H 156/92 H 142/82 H Pulse Oximetry 99 100 97 Oxygen Delivery 06/18/24 03:03 06/18/24 05:48 Temperature 97.2 F L Pulse Rate 69 Respiratory Rate 12 Blood Pressure 138/82 Pulse Oximetry 98 Oxygen Delivery Room Air Exam Const: General: no acute distress Resp: Effort & Inspection: normal respiratory effort GI: Inspection: non-distended GI Palp: No abdominal tenderness and No Guarding due to palpation present (GI) Auscultation: normal bowel sounds Results Labs 06/17/24 15:39 06/17/24 15:39 Labs: Short CBC 06/17/24 Range/Units 15:39 WBC 7.3 (4.5-10.0) K/mm3 Hgb 15.9 (14.0-18.0) g/dL Hct 48.1 (42.0-52.0) % Plt Count 188 (150-375) k/mm3 BMP 06/17/24 15:39 Sodium 140 Potassium 3.5 Chloride 105 Carbon Dioxide 22 BUN 8 L D Creatinine 0.91 Glucose 118 H Calcium 9.3 Cardiac Enzymes 06/17/24 06/17/24 Range/Units 15:39 18:42 Troponin I < 0.012 < 0.012 (0.000-0.034) ng/mL Liver Function 06/17/24 Range/Units 15:39 Total Bilirubin 1.2 (0.2-1.3) mg/dL AST 25 (17-59) U/L ALT 27 (6-50) U/L Alkaline Phosphatase 54 (38-126) U/L Albumin 4.2 (3.5-5.1) g/dL Urine 06/17/24 Range/Units 18:36 Urine Color Yellow (Yellow) Urine Appearance Clear (Clear) Urine pH 8.0 (5.0-9.0) Ur Specific [place] 1.025 (1.001-1.035) Urine Protein 2+ H (Negative) mg/dL Urine Glucose (UA) Negative (Negative) mg/dL
[2024-06-18 06:52] LABS: Basophils Percent Auto 0.2 % (0.2-1.2); Eosinophils Absolute Auto 0.1 K/mm3 (0-0.3); Eosinophils Percent Auto 0.7 % (0-4.4); Hematocrit 44.2 % (42.0-52.0); Hemoglobin 14.6 g/dL (14.0-18.0); Immature Granulocyte Absolute 0.04 K/mm3 (0.00-0.031); Immature Granulocyte Percent A 0.5 % (0-0.5); Lymphocytes Percent Auto 21.6 % (18.3-44.2); Mean Corpuscular Hemoglobin 29.9 pg (26-34); Mean Corpuscular Volume 90.6 fl (80-100); Mean Platelet Volume 10.2 fl (7.4-10.4); Monocytes Absolute Auto 1.1 K/mm3 (0.1-0.6); Monocytes Percent Auto 12.3 % (2.6-8.5); Neutrophils Absolute Auto 5.7 K/mm3 (1.3-6.7); Neutrophils Percent Auto 64.7 % (45.5-73.1); Platelet Count Result 144 k/mm3 (150-375); Red Blood Count 4.88 M/mm3 (4.6-6.20); White Blood Count 8.8 K/mm3 (4.5-10.0)
[2024-06-18 07:07] LABS: Alanine Aminotransferase 23 U/L (6-50); Albumin Level 3.4 g/dL (3.5-5.1); Alkaline Phosphatase 47 U/L (38-126); Anion Gap 6 mmol/L (4-12); Aspartate Amino Transferase 24 U/L (17-59); Bilirubin,Total 1.8 mg/dL (0.2-1.3); Blood Urea Nitrogen 10 mg/dL (9-20); Calcium 8.6 mg/dL (8.4-10.2); Carbon Dioxide 24 mmol/L (22-30); Chloride 106 mmol/L (98-107); Estimated CRCL calculation 80 ml/min; Estimated Glomerular Filt Rate 55; Glucose 89 mg/dL (65-110); Potassium 3.8 mmol/L (3.4-5.0); Sodium 136 mmol/L (137-145)
--- NOTE | 2024-06-18 08:57 | PM.IMPN ---
Progress Note: A&P Assessment and Plan (1) Obesity (BMI 30.0-34.9): Code(s): E66.9 - Obesity, unspecified Status: Acute (2) Blurred vision: Onset Date: 12/01/21 Code(s): H53.8 - Other visual disturbances Status: Acute (3) Right distal ureteral calculus: Code(s): N20.1 - Calculus of ureter Status: Acute Plan Acute and principal conditions 1. Right renal colic; 3 mm distal right ureteral stone causing mild obstructive uropathy. Rx: A. NPO; IVF; Analgesia; Anti-emetics B. Urology consulted C. Monitor renal function Chronic and stable conditions 1. Obesity, BMI 33 2. Migraines. 3. Recurrent depression with Anxiety. Miscellaneous care. 1. Code status. Full 2. Nutritoin. NPO 3. VTE prophylaxis. SCDs; [place] Subjective Date/time seen: 06/18/24 08:57 Interval history: Patient will undergo cystoscopy today. Review of Systems Review of Systems: All systems reviewed & are unremarkable except as noted in HPI and below Exam Const: General: in distress HENMT: Ears: TM's normal bilaterally Face/Nose/Sinus: Normal nares present Mouth: Yes moist mucous membranes Eyes: General: appearance normal, both eyes and all related structures Pupils: Equal, round and reactive pupils present Neck: Neck: supple Resp: Effort & Inspection: normal respiratory effort Auscultation: clear to auscultation bilaterally Cardio: Rate: regular rate Rhythm: regular rhythm GI: Auscultation: normal bowel sounds Skin: General skin exam: normal color Wounds: no wounds Neuro: General: gait normal Cranial nerves: Yes Equal, round and reactive pupils present Motor exam (neuro): 5/5 motor strength present throughout, Normal motor muscle tone present throughout and Abnormal motor strength present Extrem: General: normal to inspection Psych: Mental Status: mental status grossly normal Objective Data Vital Signs Vital Signs: Vital Signs - 24 hr 06/17/24 15:32 06/17/24 18:35 06/17/24 19:33 Temperature 97.8 F Pulse Rate 78 74 75 Respiratory Rate 24 H 24 H 12 Blood Pressure 149/103 H 150/91 H 134/83 Pulse Oximetry 100 100 96 Oxygen Delivery 06/17/24 20:56 06/17/24 22:54 06/18/24 00:00 Temperature 97.5 F L Pulse Rate 74 78 74 Respiratory Rate 16 14 14 Blood Pressure 150/88 H 156/92 H 142/82 H Pulse Oximetry 99 100 97 Oxygen Delivery 06/18/24 03:03 06/18/24 05:48 06/18/24 08:00 Temperature 97.2 F L 97.0 F L Pulse Rate 69 71 Respiratory Rate 12 16 Blood Pressure 138/82 130/67 Pulse Oximetry 98 98 Oxygen Delivery Room Air Intake/Output Intake/Output: Intake & Output 06/15/24 06/16/24 06/17/24 06/18/24 23:59 23:59 23:59 23:59 Intake Total 1000 0 Output Total 400 Balance 1000 -400 Meds/Results Medications: Active Medications Generic Name Dose Route Start Last Admin Trade Name Freq PRN Reason Stop Dose Admin Acetaminophen 650 mg 06/17/24 22:43 Acetaminophen 325 Mg Tablet PO Q4H PRN Mild Pain (1-3) or Fever Hydrocodone Bitart/Acetaminophen 1 tab 06/17/24 22:43 Hydrocodone/Acetaminophen (*Crx) 5-325 Mg Tablet PO Q4H PRN Pain Rated 4-6 Fentanyl Citrate 100 mcg 06/17/24 22:43 Fentanyl Citrate Inj (*Crx) 100 Mcg/2 Ml Vial IV PUSH Q2H PRN Pain Rated 7-10 Heparin Sodium (Porcine) 5,000 units 06/18/24 09:00 Heparin Sodium 5,000 Units/Ml Vial SUB-Q Q12HR [place] Hydromorphone HCl 0.5 mg 06/18/24 00:12 Hydromorphone Hcl Inj (*Crx) 2 Mg/Ml Vial IV PUSH Q4HR PRN Pain Rated 6-10 Sodium Chloride 1,000 mls @ 100 mls/hr 06/17/24 23:15 06/18/24 00:50 Normal Saline Iv IV CONT 100 mls/hr .Q10H [place] Administration Melatonin 5 mg 06/17/24 23:11 Melatonin 5 Mg Tablet PO HS PRN Insomnia Ondansetron HCl 4 mg 06/17/24 22:43 Ondansetron Inj 4 Mg/2 Ml Vial IV PUSH Q4H PRN Nausea Radiology Results: ITS Impressions Chest X-Ray 06/17/24 15:52 IMPRESSION: 1. No acute cardiopulmonary disease. Abdomen/Pelvis CT 06/18/24 07:18 IMPRESSION: 1. Stable position to obstruct 3 mm right distal ureteral stone just proximal to the UVJ. Mild hydronephrosis. Labs Labs: Laboratory Results - last 24 hr 06/17/24 06/17/24 06/17/24 15:39 18:36 18:42 WBC 7.3 RBC 5.44 Hgb 15.9 Hct 48.1 MCV 88.4 MCH 29.2 MCHC 33.1 RDW 12.9 Plt Count 188 MPV 10.0 Immature Gran % (Auto) 0.3 Neut % (Auto) 52.3 Lymph % (Auto) 37.5 [place] % (Auto) 8.1 Eos % (Auto) 1.4 Baso % (Auto) 0.4 Lymph # (Auto) 2.74 [place] # (Auto) 0.6 Eos # (Auto) 0.1 Baso # (Auto) 0.0 Abs Immat Gran (auto) 0.02 Absolute Neuts (auto) 3.8 Absolute Nucleated RBC 0.000 Nucleated RBC % 0.0 PT 12.6 INR 0.9 APTT 36.6 Sodium 140 Potassium 3.5 Chloride 105 Carbon Dioxide 22 Anion Gap 13 H BUN 8 L D Creatinine 0.91 Estim Creat Clear Calc 123 Estimated GFR > 60 Glucose 118 H Calcium 9.3 Total Bilirubin 1.2 AST 25 ALT 27 Alkaline Phosphatase 54 Troponin I < 0.012 < 0.012 Total Protein 7.0 Albumin 4.2 Lipase 83 Urine Color Yellow Urine Appearance Clear Urine pH 8.0 Ur Specific [place] 1.025 Urine Protein 2+ H Urine Glucose (UA) Negative Urine Ketones 1+ H Ur Blood (Man) Negative Urine Nitrate Negative Urine Bilirubin Negative Urine Urobilinogen 1.0 Leukocyte Esterase Rfl Negative Urine RBC 0-2 Urine WBC 0-5 Ur Squamous Epith Cells None seen Urine Bacteria None seen Urine Casts 0-2 Influenza A (RT-PCR) Influenza B (RT-PCR) RSV (RT-PCR) SARS-CoV-2 RNA (RT-PCR) 06/17/24 06/18/24 19:13 06:16 WBC 8.8 RBC 4.88 Hgb 14.6 Hct 44.2 MCV 90.6 MCH 29.9 MCHC 33.0 RDW 13.0 Plt Count 144 L MPV 10.2 Immature Gran % (Auto) 0.5 Neut % (Auto) 64.7 Lymph % (Auto) 21.6 [place] % (Auto) 12.3 H Eos % (Auto) 0.7 Baso % (Auto) 0.2 Lymph # (Auto) 1.90 [place] # (Auto) 1.1 H Eos # (Auto) 0.1 Baso # (Auto) 0.0 Abs Immat Gran (auto) 0.04 H Absolute Neuts (auto) 5.7 Absolute Nucleated RBC 0.000 Nucleated RBC % 0.0 PT INR APTT Sodium 136 L Potassium 3.8 Chloride 106 Carbon Dioxide 24 Anion Gap 6 BUN 10 Creatinine 1.42 H Estim Creat Clear Calc 80 Estimated GFR 55 L Glucose 89 Calcium 8.6 Total Bilirubin 1.8 H AST 24 ALT 23 Alkaline Phosphatase 47 Troponin I Total Protein 6.0 L Albumin 3.4 L Lipase Urine Color Urine Appearance Urine pH Ur Specific [place] Urine Protein Urine Glucose (UA) Urine Ketones Ur Blood (Man) Urine Nitrate Urine Bilirubin Urine Urobilinogen Leukocyte Esterase Rfl Urine RBC Urine WBC Ur Squamous Epith Cells Urine Bacteria Urine Casts Influenza A (RT-PCR) Negative Influenza B (RT-PCR) Negative RSV (RT-PCR) Negative SARS-CoV-2 RNA (RT-PCR) Negative Hospitalist MIPS Advance Care Plan I have confirmed that the patient's Advanced Care Plan is present, code status is documented, or surrogate decision maker is listed in patient medical record.: Yes Medication Reconciliation I have utilized all available resources to obtain, update and review the patients current medications (includes all prescriptions, OTC, herbals, cannabis, and nutritional supplements).: Yes
--- NOTE | 2024-06-18 10:05 | PC.NURSE ---
heparin ordered for pt this morning. pt planned for cysto this afternoon. reached out to hospitalist to inquire; hospitalist stated to hold.
[2024-06-18] MEDS: HYDROmorphone HCL INJ (*CRX) 2 MG/ML VIAL 0.5 MG IV PUSH (12:25)
[2024-06-18] MEDS: ONDANSETRON INJ 4 MG/2 ML VIAL IV PUSH (12:37)
--- NOTE | 2024-06-18 15:05 | WPDANESEPPF ---
Anes - Initial Pre Proc Eval Procedure: Operation Date: 06/18/24 15:00 Proposed Procedures p Cystoscopy, Right Ureteroscopy, Stone Extraction - David Doyle MD Date/Time: 06/18/24 15:05 Surgeon: Juan Morin MD Pre Op Diagnosis: Right Sided Kidney Stone/Intractable Pain/Mild Hyd Patient Data Age: 43 Gender: M Height: 1.85 m Weight: 113.5 kg Last Vital Signs Temp 97.0 F L 06/18/24 08:00 Pulse 81 06/18/24 13:41 Resp 16 06/18/24 08:00 BP 160/100 H 06/18/24 13:41 Pulse Ox 98 06/18/24 13:41 O2 Del Method Room Air 06/18/24 08:00 Allergies Allergy/AdvReac Type Severity Reaction Status Date / Time No Known Allergies Allergy Mild Verified 06/17/24 19:34 Home Medications ?Medication ?Instructions ?Recorded ?Confirmed ?Type alprazolam 0.25 mg tablet (Xanax) 0.25 mg PO TID PRN anxiety #90 tabs 02/06/22 06/18/24 Rx hydrocortisone acetate 25 mg 25 mg RECTAL BID PRN hemorrhoids 05/07/22 06/18/24 Rx rectal suppository (Anusol-HC) #24 ea cholecalciferol (vitamin D3) 1,000 unit PO DAILY 06/04/23 06/18/24 History omega-3 fatty acids 1 cap PO DAILY 06/04/23 06/18/24 History rizatriptan 10 mg tablet See Rx Instructions PO .COMPLEX 01/16/24 06/18/24 History atogepant 60 mg tablet (Qulipta) 60 mg PO DAILY 04/01/24 06/18/24 History azelastine 137 mcg (0.1 %) nasal 1 spray intranasal Q12H PRN 04/01/24 06/18/24 History spray allergy semaglutide 0.25 mg or 0.5 mg (2 0.25 mg (0.368 mL) subcut WEEKLY 05/01/24 06/18/24 Rx mg/3 mL) subcutaneous pen injector #3 mL (Ozempic) buspirone 15 mg tablet 15 mg PO BID 06/18/24 06/18/24 History meloxicam 15 mg tablet 15 mg PO DAILY PRN back pain 06/18/24 06/18/24 History sertraline 100 mg tablet 100 mg PO DAILY 06/18/24 06/18/24 History Laboratory Tests 06/17/24 06/17/24 06/17/24 15:39 18:36 18:42 WBC 7.3 K/mm3 (4.5-10.0) RBC 5.44 M/mm3 (4.6-6.20) Hgb 15.9 g/dL (14.0-18.0) Hct 48.1 % (42.0-52.0) MCV 88.4 fl (80-100) MCH 29.2 pg (26-34) MCHC 33.1 g/dl (32-36) RDW 12.9 % (11.5-14.5) Plt Count 188 k/mm3 (150-375) MPV 10.0 fl (7.4-10.4) Immature Gran % (Auto) 0.3 % (0-0.5) Neut % (Auto) 52.3 % (45.5-73.1) Lymph % (Auto) 37.5 % (18.3-44.2) [place] % (Auto) 8.1 % (2.6-8.5) Eos % (Auto) 1.4 % (0-4.4) Baso % (Auto) 0.4 % (0.2-1.2) Lymph # (Auto) 2.74 K/mm3 (0.9-3.2) [place] # (Auto) 0.6 K/mm3 (0.1-0.6) Eos # (Auto) 0.1 K/mm3 (0-0.3) Baso # (Auto) 0.0 K/mm3 (0.0-0.1) Abs Immat Gran (auto) 0.02 K/mm3 (0.00-0.031) Absolute Neuts (auto) 3.8 K/mm3 (1.3-6.7) Absolute Nucleated RBC 0.000 K/mm3 (0.0-0.012) Nucleated RBC % 0.0 % (0.0-0.2) PT 12.6 Seconds (11.1-14.7) INR 0.9 APTT 36.6 Seconds (22.3-36.8) Sodium 140 mmol/L (137-145) Potassium 3.5 mmol/L (3.4-5.0) Chloride 105 mmol/L (98-107) Carbon Dioxide 22 mmol/L (22-30) Anion Gap 13 H mmol/L (4-12) BUN 8 L D mg/dL (9-20) Creatinine 0.91 mg/dL (0.7-1.3) Estim Creat Clear Calc 123 ml/min Estimated GFR > 60 (59 - ) Glucose 118 H mg/dL (65-110) Calcium 9.3 mg/dL (8.4-10.2) Total Bilirubin 1.2 mg/dL (0.2-1.3) AST 25 U/L (17-59) ALT 27 U/L (6-50) Alkaline Phosphatase 54 U/L (38-126) Troponin I < 0.012 ng/mL < 0.012 ng/mL (0.000-0.034) (0.000-0.034) Total Protein 7.0 g/dL (6.3-8.2) Albumin 4.2 g/dL (3.5-5.1) Lipase 83 U/L (23-300) Urine Color Yellow (Yellow) Urine Appearance Clear (Clear) Urine pH 8.0 (5.0-9.0) Ur Specific [place] 1.025 (1.001-1.035) Urine Protein 2+ H mg/dL (Negative) Urine Glucose (UA) Negative mg/dL (Negative) Urine Ketones 1+ H mg/dL (Negative) Ur Blood (Man) Negative (Negative) Urine Nitrate Negative (Negative) Urine Bilirubin Negative (Negative) Urine Urobilinogen 1.0 mg/dL (<2.0) Leukocyte Esterase Rfl Negative VIGNESH/UL (Negative) Urine RBC 0-2 /hpf (0-2) Urine WBC 0-5 /hpf (0-3) Ur Squamous Epith Cells None seen /hpf (Few) Urine Bacteria None seen /hpf Urine Casts 0-2 Influenza A (RT-PCR) Influenza B (RT-PCR) RSV (RT-PCR) SARS-CoV-2 RNA (RT-PCR) 06/17/24 06/18/24 19:13 06:16 WBC 8.8 K/mm3 (4.5-10.0) RBC 4.88 M/mm3 (4.6-6.20) Hgb 14.6 g/dL (14.0-18.0) Hct 44.2 % (42.0-52.0) MCV 90.6 fl (80-100) MCH 29.9 pg (26-34) MCHC 33.0 g/dl (32-36) RDW 13.0 % (11.5-14.5) Plt Count 144 L k/mm3 (150-375) MPV 10.2 fl (7.4-10.4) Immature Gran % (Auto) 0.5 % (0-0.5) Neut % (Auto) 64.7 % (45.5-73.1) Lymph % (Auto) 21.6 % (18.3-44.2) [place] % (Auto) 12.3 H % (2.6-8.5) Eos % (Auto) 0.7 % (0-4.4) Baso % (Auto) 0.2 % (0.2-1.2) Lymph # (Auto) 1.90 K/mm3 (0.9-3.2) [place] # (Auto) 1.1 H K/mm3 (0.1-0.6) Eos # (Auto) 0.1 K/mm3 (0-0.3) Baso # (Auto) 0.0 K/mm3 (0.0-0.1) Abs Immat Gran (auto) 0.04 H K/mm3 (0.00-0.031) Absolute Neuts (auto) 5.7 K/mm3 (1.3-6.7) Absolute Nucleated RBC 0.000 K/mm3 (0.0-0.012) Nucleated RBC % 0.0 % (0.0-0.2) PT INR APTT Sodium 136 L mmol/L (137-145) Potassium 3.8 mmol/L (3.4-5.0) Chloride 106 mmol/L (98-107) Carbon Dioxide 24 mmol/L (22-30) Anion Gap 6 mmol/L (4-12) BUN 10 mg/dL (9-20) Creatinine 1.42 H mg/dL (0.7-1.3) Estim Creat Clear Calc 80 ml/min Estimated GFR 55 L (59 - ) Glucose 89 mg/dL (65-110) Calcium 8.6 mg/dL (8.4-10.2) Total Bilirubin 1.8 H mg/dL (0.2-1.3) AST 24 U/L (17-59) ALT 23 U/L (6-50) Alkaline Phosphatase 47 U/L (38-126) Troponin I Total Protein 6.0 L g/dL (6.3-8.2) Albumin 3.4 L g/dL (3.5-5.1) Lipase Urine Color Urine Appearance Urine pH Ur Specific [place] Urine Protein Urine Glucose (UA) Urine Ketones Ur Blood (Man) Urine Nitrate Urine Bilirubin Urine Urobilinogen Leukocyte Esterase Rfl Urine RBC Urine WBC Ur Squamous Epith Cells Urine Bacteria Urine Casts Influenza A (RT-PCR) Negative (Negative) Influenza B (RT-PCR) Negative (Negative) RSV (RT-PCR) Negative (Negative) SARS-CoV-2 RNA (RT-PCR) Negative (Negative) Patient hx anesthesia problems: none Family hx anesthesia problems: none Results Review: All pre-operative results and documents have been reviewed as part of the pre-operative evaluation. [facility] Past Medical History Medical History Abnormal fasting glucose (10/13/20) glucose 135 and hemoglobin A1c 6.0 on 10/13/2020. Glucose 137 with hemoglobin A1c 6.8 on 12/01/2021. Fasting glucose 117 with hemoglobin A1c 6.3 and GFR 107 on 04/01/2024. Controlled diabetes mellitus without complication, without long-term current use of insulin (~12/01/21) glucose 135 and hemoglobin A1c 6.0 on 10/13/2020. Glucose 137 with hemoglobin A1c 6.8 on 12/01/2021. Fasting glucose 117 with hemoglobin A1c 6.3 and GFR 107 on 04/01/2024. Chronic depression Brain fog Chronic neck pain Influenza-like illness (~06/20/23) COVID-19 (~02/2023) Acute bronchitis Migraine without aura and without status migrainosus, not intractable Neurologist believes that the intermittent diplopia represents a brainstem aura. Normal MRI, MRA, MRV of the brain on 03/04/2024. Brain stem stroke syndrome (~12/01/21) a possible MRI negative brainstem stroke evaluated at [facility] 12/01/2021 Binocular vision disorder with diplopia (~12/01/21) intermittent binocular diplopia starting 12/01/2021 Hemorrhoids Blurred vision (12/01/21) Infected dental caries left upper jaw Seasonal allergic rhinitis Body mass index [BMI] 33.0-33.9, adult Obesity (BMI 30.0-34.9) Paresthesias Encounter for prostate cancer screening Wellness examination Mixed hyperlipidemia (10/13/20) total cholesterol 211, HDL 49, triglycerides 159 and LDL 133 on 10/13/2020. Total cholesterol 188, triglycerides 138, HDL 42 and LDL 118 on 12/01/2021. Cholesterol 164, HDL 41, triglycerides 111, LDL 102 on 04/01/2024. Vitamin D deficiency, unspecified (10/13/20) vitamin-D low at 16 on 10/13/2020. Level normal at 37 on 04/01/2024. BMI 35.0-35.9,adult Hypersomnia (~01/02/21) Home sleep study 03/28/2021 with AHI of 3.4 with evidence of restless leg syndrome. Consider in-lab sleep study Urinary tract infection Cellulitis Exposure to COVID-19 virus Acute non-recurrent maxillary sinusitis Renal stone (10/13/20) Vitamin B12 deficiency anemia B12 slightly low at 341 on 10/13/2020. Level normal at 661 with hemoglobin 16.3 on 04/01/2024. Polyp of colon Protein-losing nephropathy 2+ protein on urinalysis 04/01/2024. Migraine without aura and responsive to treatment CT of the brain on 12/01/2021 was normal. MRI of the brain was normal 12/03/2021. the patient is having brainstem aura symptoms without migraine. Family History Family History Father Diabetes mellitus Patient's father is in good health Mother Diabetes mellitus Patient's mother is in good health Grandparent Family history of cardiovascular disease Social History Social History Smoking status: Never smoker Second hand tobacco smoke exposure: No Alcohol intake: never Substance use: never Substance use type: does not use Do You Feel Safe in your Home?: Yes Lack of Transportation: No Lack of Food: Never True Current Housing: I Have Housing Concerned About Future Housing: No Difficulty Paying Gas/Electric Bills: No Difficulty Paying for Meds: No Currently Unemployed: No Education: Associate Degree Difficulty w/ Childcare or Family Care: No Spiritual care concerns: No Anes - Eval Final PreProcedure Day of Procedure 06/18/24 15:05 Patient weight: obese Lungs: normal air movement Airway: Mallampati scale class II Neurological: alert and oriented Last oral intake: >/= 8 hours ASA classification: III Emergent: no Anesthetic plan: proceed Anesthesia type and monitoring: general ETT and standard monitoring Results Review: All pre-operative results and documents have been reviewed as part of the pre-operative evaluation. DM, on GLP1 taken 2 days ago, hx of double vision/blurred vision, w/u reveals mostly migrane headaches. Pt overall was quite active until dizziness and blurred vision got so much worse, no cp or sob recently. Informed Consent: The patient's anesthetic plan and its attendant risks and benefits were discussed with the patient/family/POA. Questions were solicited and answers provided to the satisfaction of the patient/family/POA.
[2024-06-18] MEDS: ceFAZolin 2 GM/D5W 50 ML 2 GM/50 ML BAG IVPB (15:18)
[2024-06-18] MEDS: LIDOCAINE 2% GEL UROJET 10 ML PKG MUCOUS MEM (15:24)
[2024-06-18] MEDS: KETOROLAC 30 MG/ML VIAL (*BKC) IV PUSH (15:35)
--- NOTE | 2024-06-18 15:44 | W.PM.PROC2 ---
Procedure Note - Detailed Date of Procedure 06/18/24 Pre-op Diagnosis Right ureteral stone Post-op Diagnosis Same Procedure Performed Cystoscopy, right ureteroscopy with stone extraction Surgeon David Doyle MD Anesthesia General Description of Procedure The patient was brought to the operative suite where he is prepped and draped in a routine sterile fashion while in the dorsal lithotomy position after the uneventful induction of a general LMA anesthetic. A 19F rigid cystoscope was placed in the bladder. There are no urethral strictures. His prostatic urethra measures, approximately, 1.5cm with no median lobe enlargement. The bladder mucosa was endoscopically normal without hyperemia or neoplasm. There was a single, orthotopic ureteral orifice bilaterally. A 0.035 glidewire was advanced into the right renal pelvis under fluoroscopy. The distal ureter was dilated with an 8F/10F ureteral dilator. Ureteroscopy was undertaken with a short, tapered, semi-rigid ureteroscope and the stone was extracted with ease using a 1.9F disposable stone basket. Due to the ease of this manipulation I opted not to place a ureteral stent. The patient's bladder was emptied and was taken to the recovery room having tolerated this procedure well. Urine Output 400 Drains No Pathology Yes Complications No immediate complications Condition Stable Disposition PACU
[2024-06-18] MEDS: LACTATED RINGERS 1,000 ML 30 ML IV CONT (15:55)
--- NOTE | 2024-06-18 18:35 | PC.NURSE ---
ok to d/c with hospitalist. pt tolerated po dinner well.
--- NOTE | 2024-06-19 08:12 | WPDHPUPDATE1 ---
History and Physical Update Update Date/Time: 06/19/24 08:12 History and Physical has been reviewed, including an updated exam of the patient. There are NO changes in the patient's condition. Risks, benefits, and alternatives have been discussed and questions answered. Patient agrees to proceed with procedure.
--- NOTE | 2024-06-19 18:25 | PM.DS ---
DS: Admitting Diagnosis Discharge Date 06/18/24 Admitting Diagnosis Calculus of ureter DS: Discharge Diagnosis Discharge Diagnosis (1) Obesity (BMI 30.0-34.9): Code(s): E66.9 - Obesity, unspecified Status: Acute (2) Blurred vision: Onset Date: 12/01/21 Code(s): H53.8 - Other visual disturbances Status: Acute (3) Right distal ureteral calculus: Code(s): N20.1 - Calculus of ureter Status: Acute DS: Summary Hospital Course Hospital Course: 43-year-old male with a past medical history including hypertension, hyperlipidemia, diabetes, previous kidney stones. Patient previously had retrieval procedure to remove his kidney stones and has had kidney injuries in the past. Today presents with sudden-onset right-sided flank pain radiating towards his right abdomen. Causing him some shortness of breath and right-sided chest discomfort. Denies any fever chills. No urinary complaints such as dysuria, hematuria, inability urinate. Feels intense and comes in waves. Associated nausea without vomiting. No diarrhea constipation. No recent surgeries. Was otherwise in his normal state of health. Took Excedrin and aspirin at home which action made the pain worse. No history of peptic ulcer disease but tells me he does take large amounts of NSAIDs for his migraine headaches. Urology was consulted and patient underwent cystoscopy, right ureteroscopy with stone extraction on 06/18. Urology agrees with the discharge and patient denies any symptom. Status at Discharge Cognitive/behavioral status at discharge: Stable Time Spent with Patient Time attestation: Total time spent providing and/or coordinating discharge services: 45 minutes Exam Const: General: in distress HENMT: Ears: TM's normal bilaterally Face/Nose/Sinus: Normal nares present Mouth: Yes moist mucous membranes Eyes: General: appearance normal, both eyes and all related structures Pupils: Equal, round and reactive pupils present Neck: Neck: supple Resp: Effort & Inspection: normal respiratory effort Auscultation: clear to auscultation bilaterally Cardio: Rate: regular rate Rhythm: regular rhythm GI: Auscultation: normal bowel sounds Skin: General skin exam: normal color Wounds: no wounds Neuro: General: gait normal Cranial nerves: Yes Equal, round and reactive pupils present Motor exam (neuro): 5/5 motor strength present throughout, Normal motor muscle tone present throughout and Abnormal motor strength present Extrem: General: normal to inspection Psych: Mental Status: mental status grossly normal DS: Data Data Completed and Pending Pending studies at discharge: Pending at discharge 06/18/24 15:33 Surgical [PTH] Routine Discharge Plan Discharge Attending physician on discharge: Juan Morin Consulting providers: David Doyle; Lucrecia Gomez; Jasen Jack; Darrel Luis; Isela Leyva; Jc Gonzalez; Frantz Weathers; Eren Landry Discharging Clinician: David Doyle Patient Disposition: Home, Self-Care Activity: other - see discharge instructions Diet: other - see discharge instructions Wound Care Instructions: other - see discharge instructions Discharge Instructions: 1) Activity: no driving or important decisions x24 hours. 2) Diet: resume your normal, pre-admission diet. 3) Follow-up: 1-2 weeks / call for appointment ([phone]). Patient Instructions: Antibiotic Form Patient Language: Yi Stand Alone Forms: General Discharge Information Follow-up/Referrals: David Doyle MD [Physician] - (follow up 1-2 weeks) Discharge Medications: New hydrocodone-acetaminophen 5-325 mg tablet 1 - 2 tablet PO Q6H PRN (Reason: pain) Qty: 20 0RF Continued omega-3 fatty acids [Fish Oil] 1 cap PO DAILY cholecalciferol (vitamin D3) 1,000 unit PO DAILY Qulipta 60 mg tablet 60 mg PO DAILY Patient Comments: prescribed by Neurology azelastine 137 mcg (0.1 %) spray,non-aerosol 1 spray intranasal Q12H PRN (Reason: allergy) Rx Instructions: administer into each nostril rizatriptan 10 mg tablet See Rx Instructions PO .COMPLEX Rx Instructions: per neuro sertraline 100 mg tablet 100 mg PO DAILY buspirone 15 mg tablet 15 mg PO BID meloxicam 15 mg tablet 15 mg PO DAILY PRN (Reason: back pain) alprazolam [Xanax] 0.25 mg tablet 0.25 mg PO TID PRN (Reason: anxiety) Qty: 90 5RF Rx Instructions: take 1/2 or 1 tablet t.i.d. p.r.n. severe anxiety only hydrocortisone acetate [Anusol-HC] 25 mg suppository 25 mg RECTAL BID PRN (Reason: hemorrhoids) Qty: 24 5RF Ozempic 0.25 mg or 0.5 mg (2 mg/3 mL) pen injector 0.25 mg subcut WEEKLY Qty: 3 11RF Rx Instructions: for 4 weeks Date of admission: 06/17/24 22:43 Primary Care Provider: Clark Thomas Admitting Provider: Juan Morin Attending physician on admission: Tarik Dunlap Condition: Stable
== END 2024-06-18 18:55 | disposition home or self-care (01) ==
LOC: ANHED 23:08 → ANH3MEDSUR 06-18 06:43
PROVIDERS: Emergency Medicine; Physician Assistant; Urology; Admitting Provider Internal Medicine; Emergency Provider Student in an Organized Health Care Education/Training Program; PCP Family Medicine; Visit Provider General Practice
PROC: (CPT 52352; principal; 2024-06-18 15:00)
DX: N20.1 Calculus of ureter (principal); E66.9 Obesity, unspecified; Z68.33 Body mass index [BMI] 33.0-33.9, adult; E11.9 Type 2 diabetes mellitus without complications; I10 Essential (primary) hypertension; E78.2 Mixed hyperlipidemia; H53.8 Other visual disturbances; G43.909 Migraine, unspecified, not intractable, without status migrainosus; F41.8 Other specified anxiety disorders; Z20.822 Contact with and (suspected) exposure to COVID-19; Z86.16 Personal history of COVID-19; Z79.85 Long-term (current) use of injectable non-insulin antidiabetic drugs; Z79.899 Other long term (current) drug therapy; Z87.442 Personal history of urinary calculi
CPT/HCPCS: 52352; 36415; 71046; 74176; 74177; 80053; 81001; 82365; 83690; 84484; 85025; 85610; 85730; 87637; 88300; 93005; 96361; 96374; 96375; 96376; 99199; 99285; A9270; C1769; G0378; J0330; J0690; J1171; J1885; J2003; J2250; J2405; J2704; J2765; J3010; J7030; J7120; Q9967